=== PATIENT | female | born 1945 | race Caucasian/White ===

== ENCOUNTER 2019-04-09 17:31 | Inpatient (IN) | payer MEDICARE ==
--- NOTE | 2019-04-09 18:05 | ED ---
Altered Mental Status HPI - General Chief Complaint: Altered Mental Status Stated Complaint: altered mental status Time Seen by Provider: 04/09/19 17:34 Source: patient, EMS Mode of arrival: EMS Limitations: no limitations - History of Present Illness Initial Comments: 73-year-old female with history of hypertension and breast cancer presents today for chief complaint of episode of altered mental status. Patient was found by 2 friends earlier at her home and she was confused, she did not know why her dogs (that she owns) were in her own house, she also didnt remember that the friend that had given her the dogs was --and had > 4 months ago. They were concerned by this confused behavior. And presented to their local hospital. Upon presentation the patient's confusion resolved per friends/family. Patient had a CT of the brain which revealed no acute infarct and laboratory studies which revealed elevated troponin. Family which is at bedside states that they were told patient had a urinary tract infection. Patient denies dysuria urgency frequency. Patient denies any known confusion she has chest pain GI shorts breath leg swelling denies history of DVT or pulmonary embolism she denies any back pain fevers cough congestion upper rest or symptoms she denies any known headaches dizziness nausea vomiting visual changes. Patient states that she feels like her normal self and she does not remember being confused earlier. Family as well as friends do not recall patient having any episodes similar to this in the past. Remaining review of system negative. Upon arrival patient appears well alert and oriented 3 no sig ns of confusion. - Related Data Home Medications Medication Instructions Recorded Confirmed Fluticasone Nasal [place] [Flonase 2 spray EA NOSTRIL HS 04/09/19 04/09/19 Nasal [place]] Gemfibrozil [Lopid] 600 mg PO AC-BID 04/09/19 04/09/19 HYDROcodone/APAP 5-325MG [[place] 1 tab PO Q4H PRN 04/09/19 04/09/19 5-325] Loratadine [Claritin] 10 mg PO DAILY 04/09/19 04/09/19 Sertraline [Zoloft] 50 mg PO DAILY 04/09/19 04/09/19 Sulindac [Clinoril] 200 mg PO BID 04/09/19 04/09/19 Triamterene-Hctz 37.5-25Mg 1 cap PO DAILY 04/09/19 04/09/19 [Dyazide 37.5-25 Capsule] traMADol HCL [Ultram] 50 mg PO BID 04/09/19 04/09/19 Allergies Allergy/AdvReac Type Severity Reaction Status Date / Time adhesive tape Allergy Rash/Hives Verified 04/09/19 18:19 cephalexin [From Keflex] Allergy Rash/Hives Verified 04/09/19 18:19 sulfamethoxazole Allergy Rash/Hives Verified 04/09/19 18:19 [From Bactrim] trimethoprim [From Bactrim] Allergy Rash/Hives Verified 04/09/19 18:19 GLADYS MUSTARD Allergy Anaphylaxis Uncoded 04/09/19 18:19 Review of Systems ROS Statement: Those systems with pertinent positive or pertinent negative responses have been documented in the HPI. ROS Other: All systems not noted in ROS Statement are negative. Past Medical History Past Medical History: Cancer, Hypertension Additional Past Medical History / Comment(s): Right breast lump-cancerous History of Any Multi-Drug Resistant Organisms: None Reported Past Surgical History: Breast Surgery, Cholecystectomy, Hysterectomy Past Psychological History: Depression Smoking Status: Never smoker Past Alcohol Use History: Occasional Past Drug Use History: None Reported General Exam - General Exam Comments Initial Comments: General: The patient is awake and alert, in no distress, and does not appear acutely ill. Eye: +3 mm pupils are equal, round and reactive to light, extra-ocular movements are intact. No APD. No nystagmus. There is normal conjunctiva ajit aterally. No signs of icterus. Ears, nose, mouth and throat: There are moist mucous membranes and no oral lesions. No nuchal rigidity. Neck: The neck is supple, there is no tenderness or JVD. Cardiovascular: There is a regular rate and rhythm. No murmur, rub or gallop is appreciated. Respiratory: Lungs are clear to auscultation, respirations are non-labored, breath sounds are equal. No wheezes, stridor, rales, or rhonchi. Gastrointestinal: Soft, non-distended, non-tender abdomen without masses or organomegaly noted. There is no rebound or guarding present. No CVA tenderness. Bowel sounds are unremarkable. Musculoskeletal: Normal ROM, no tenderness. Strength 5/5 of the UE and LE b/l. Sensation intact of the UE and LE b/l. radial and DP pulses equal bilaterally 2+. Neurological: A&O x 3. CN II-XII intact, There are no obvious motor or sensory deficits. Coordination appears grossly intact. Speech is normal. No pronator drift. No finger nausea. No gait ataxia. Smooth and coordinated [id number] finger to nose. Spatially oriented. Skin: Skin is warm and dry and no rashes or lesions are noted. Psychiatric: Cooperative, appropriate mood & affect, normal judgment. Limitations: no limitations Course Vital Signs 04/09/19 17:34 Temperature 98.6 F Pulse Rate 66 Respiratory 16 Rate Blood Pressure 159/84 O2 Sat by Pulse 98 Oximetry Medical Decision Making - Medical Decision Making 73yo female present today for chief complaint of episode of transient confusion x few hours. Patient is now baseline per family who is at bedside. Patient has no focal neurological deficits NIH is 0. Patient has no other complaints. Patient does have noted elevated troponin upon chart review from paperwork obtained from [facility]. Patient states she was not aware of this finding. EKG revealed no ST elevation or depression concerning for acute cardiopulmonary syndrome. We will trend the troponin levels. Patient's chest x-ray was clear CT was initially ordered with the altered mental status order set, i immediately evaluated patient and gave verbal order once I read report that CT was obtained at the other hospital and gave verbal order to nurse to cancel the CT, paitent CT was never cancelled and patient went to CT, second CT revealed no change, no acute intracranial process. No acute ischemia. At this time we'll admit patient for possible TIA, and cardiac evaluation. Family and patient are agreeable to admission. I did speak with the admitting provider Dr. Reeves who was agreeable with admission and care plan, agreeable with neurology and cardiology consultation. patient remained stable throughout ER visit no cognitive changes. Discussed case in detail with attending provider Jenna waddell. - Lab Data Result diagrams: 04/09/19 18:07 04/09/19 18:07 Lab Results 04/09/19 04/09/19 04/09/19 Range/Units 17:53 18:07 18:07 WBC 6.8 (3.8-10.6) k/uL RBC 4.53 (3.80-5.40) m/uL Hgb 13.8 (11.4-16.0) gm/dL Hct 41.0 (34.0-46.0) % MCV 90.5 (80.0-100.0) fL MCH 30.4 (25.0-35.0) pg MCHC 33.6 (31.0-37.0) g/dL RDW 14.8 (11.5-15.5) % Plt Count 338 (150-450) k/uL Neutrophils % 62 % Lymphocytes % 25 % Monocytes % 5 % Eosinophils % 6 % Basophils % 1 % Neutrophils # 4.2 (1.3-7.7) k/uL Lymphocytes # 1.7 (1.0-4.8) k/uL Monocytes # 0.3 (0-1.0) k/uL Eosinophils # 0.4 (0-0.7) k/uL Basophils # 0.0 (0-0.2) k/uL PT (9.0-12.0) sec INR (<1.2) APTT (22.0-30.0) sec Sodium 141 (137-145) mmol/L Potassium 4.0 (3.5-5.1) mmol/L Chloride 106 (98-107) mmol/L Carbon Dioxide 25 (22-30) mmol/L Anion Gap 10 mmol/L BUN 24 H (7-17) mg/dL Creatinine 0.85 (0.52-1.04) mg/dL Est GFR (CKD-EPI)AfAm 79 (>60 ml/min/1.73 sqM) Est GFR (CKD-EPI)NonAf 68 (>60 ml/min/1.73 sqM) Glucose 83 (74-99) mg/dL POC Glucose (mg/dL) (75-99) mg/dL POC Glu Composition Floor Setter ID Plasma Lactic Acid Jeffry 1.0 (0.7-2.0) mmol/L Calcium 10.7 H (8.4-10.2) mg/dL Total Bilirubin 0.7 (0.2-1.3) mg/dL AST 31 (14-36) U/L ALT 22 (9-52) U/L Alkaline Phosphatase 160 H (38-126) U/L Creatine Kinase 123 (30-135) U/L Troponin I (0.000-0.034) ng/mL Total Protein 7.6 (6.3-8.2) g/dL Albumin 4.7 (3.5-5.0) g/dL Urine Color Urine Appearance (Clear) Urine pH (5.0-8.0) Ur Specific [place] (1.001-1.035) Urine Protein (Negative) Urine Glucose (UA) (Negative) Urine Ketones (Negative) Urine Blood (Negative) Urine Nitrite (Negative) Urine Bilirubin (Negative) Urine Urobilinogen (<2.0) mg/dL Ur Leukocyte Esterase (Negative) Urine RBC (0-5) /hpf Urine WBC (0-5) /hpf Ur Squamous Epith Cells (0-4) /hpf Urine Mucus (None) /hpf Urine Opiates Screen (NotDetected) Ur Oxycodone Screen (NotDetected) Urine Methadone Screen (NotDetected) Ur Propoxyphene Screen (NotDetected) Ur Barbiturates Screen (NotDetected) U Tricyclic Antidepress (NotDetected) Ur Phencyclidine Scrn (NotDetected) Ur Amphetamines Screen (NotDetected) U Methamphetamines Scrn (NotDetected) U Benzodiazepines Scrn (NotDetected) Urine Cocaine Screen (NotDetected) U Marijuana (THC) Screen (NotDetected) 04/09/19 04/09/19 04/09/19 Range/Units 18:07 18:07 18:07 WBC (3.8-10.6) k/uL RBC (3.80-5.40) m/uL Hgb (11.4-16.0) gm/dL Hct (34.0-46.0) % MCV (80.0-100.0) fL MCH (25.0-35.0) pg MCHC (31.0-37.0) g/dL RDW (11.5-15.5) % Plt Count (150-450) k/uL Neutrophils % % Lymphocytes % % Monocytes % % Eosinophils % % Basophils % % Neutrophils # (1.3-7.7) k/uL Lymphocytes # (1.0-4.8) k/uL Monocytes # (0-1.0) k/uL Eosinophils # (0-0.7) k/uL Basophils # (0-0.2) k/uL PT 10.2 (9.0-12.0) sec INR 0.9 (<1.2) APTT 23.0 (22.0-30.0) sec Sodium (137-145) mmol/L Potassium (3.5-5.1) mmol/L Chloride (98-107) mmol/L Carbon Dioxide (22-30) mmol/L Anion Gap mmol/L BUN (7-17) mg/dL Creatinine (0.52-1.04) mg/dL Est GFR (CKD-EPI)AfAm (>60 ml/min/1.73 sqM) Est GFR (CKD-EPI)NonAf (>60 ml/min/1.73 sqM) Glucose (74-99) mg/dL POC Glucose (mg/dL) (75-99) mg/dL POC Glu Composition Floor Setter ID Plasma Lactic Acid [place] (0.7-2.0) mmol/L Calcium (8.4-10.2) mg/dL Total Bilirubin (0.2-1.3) mg/dL AST (14-36) U/L ALT (9-52) U/L Alkaline Phosphatase (38-126) U/L Creatine Kinase (30-135) U/L Troponin I 0.070 H* (0.000-0.034) ng/mL Total Protein (6.3-8.2) g/dL Albumin (3.5-5.0) g/dL Urine Color Light Yellow Urine Appearance Clear (Clear) Urine pH 6.0 (5.0-8.0) Ur Specific [place] 1.011 (1.001-1.035) Urine Protein Negative (Negative) Urine Glucose (UA) Negative (Negative) Urine Ketones Negative (Negative) Urine Blood Negative (Negative) Urine Nitrite Negative (Negative) Urine Bilirubin Negative (Negative) Urine Urobilinogen <2.0 (<2.0) mg/dL Ur Leukocyte Esterase Small H (Negative) Urine RBC 2 (0-5) /hpf Urine WBC 4 (0-5) /hpf Ur Squamous Epith Cells <1 (0-4) /hpf Urine Mucus Rare H (None) /hpf Urine Opiates Screen Not Detected (NotDetected) Ur Oxycodone Screen Not Detected (NotDetected) Urine Methadone Screen Not Detected (NotDetected) Ur Propoxyphene Screen Not Detected (NotDetected) Ur Barbiturates Screen Not Detected (NotDetected) U Tricyclic Antidepress Detected H (NotDetected) Ur Phencyclidine Scrn Not Detected (NotDetected) Ur Amphetamines Screen Not Detected (NotDetected) U Methamphetamines Scrn Not Detected (NotDetected) U Benzodiazepines Scrn Not Detected (NotDetected) Urine Cocaine Screen Not Detected (NotDetected) U Marijuana (THC) Screen Not Detected (NotDetected) 04/09/19 Range/Units 18:09 WBC (3.8-10.6) k/uL RBC (3.80-5.40) m/uL Hgb (11.4-16.0) gm/dL Hct (34.0-46.0) % MCV (80.0-100.0) fL MCH (25.0-35.0) pg MCHC (31.0-37.0) g/dL RDW (11.5-15.5) % Plt Count (150-450) k/uL Neutrophils % % Lymphocytes % % Monocytes % % Eosinophils % % Basophils % % Neutrophils # (1.3-7.7) k/uL Lymphocytes # (1.0-4.8) k/uL Monocytes # (0-1.0) k/uL Eosinophils # (0-0.7) k/uL Basophils # (0-0.2) k/uL PT (9.0-12.0) sec INR (<1.2) APTT (22.0-30.0) sec Sodium (137-145) mmol/L Potassium (3.5-5.1) mmol/L Chloride (98-107) mmol/L Carbon Dioxide (22-30) mmol/L Anion Gap mmol/L BUN (7-17) mg/dL Creatinine (0.52-1.04) mg/dL Est GFR (CKD-EPI)AfAm (>60 ml/min/1.73 sqM) Est GFR (CKD-EPI)NonAf (>60 ml/min/1.73 sqM) Glucose (74-99) mg/dL POC Glucose (mg/dL) 81 (75-99) mg/dL POC Glu Composition Floor Setter ID Lisha Grayson Plasma Lactic Acid Jeff[place] (0.7-2.0) mmol/L Calcium (8.4-10.2) mg/dL Total Bilirubin (0.2-1.3) mg/dL AST (14-36) U/L ALT (9-52) U/L Alkaline Phosphatase (38-126) U/L Creatine Kinase (30-135) U/L Troponin I (0.000-0.034) ng/mL Total Protein (6.3-8.2) g/dL Albumin (3.5-5.0) g/dL Urine Color Urine Appearance (Clear) Urine pH (5.0-8.0) Ur Specific [place] (1.001-1.035) Urine Protein (Negative) Urine Glucose (UA) (Negative) Urine Ketones (Negative) Urine Blood (Negative) Urine Nitrite (Negative) Urine Bilirubin (Negative) Urine Urobilinogen (<2.0) mg/dL Ur Leukocyte Esterase (Negative) Urine RBC (0-5) /hpf Urine WBC (0-5) /hpf Ur Squamous Epith Cells (0-4) /hpf Urine Mucus (None) /hpf Urine Opiates Screen (NotDetected) Ur Oxycodone Screen (NotDetected) Urine Methadone Screen (NotDetected) Ur Propoxyphene Screen (NotDetected) Ur Barbiturates Screen (NotDetected) U Tricyclic Antidepress (NotDetected) Ur Phencyclidine Scrn (NotDetected) Ur Amphetamines Screen (NotDetected) U Methamphetamines Scrn (NotDetected) U Benzodiazepines Scrn (NotDetected) Urine Cocaine Screen (NotDetected) U Marijuana (THC) Screen (NotDetected) - EKG Data EKG Comments: Ventricular rate 63 bpm, ID interval 134 ms, QRS duration 96ms, QT/QTc 410/419 m axis noted. There is an incomplete right bundle branch block. No ST elevation or depression nonspecific T-wave. Disposition Clinical Impression: Transient confusion, Elevated troponin Disposition: ADMITTED IP TO THIS [facility] Condition: Stable Is patient prescribed a controlled substance at d/c from ED?: No Referrals: Kamron Lee MD [Primary Care Provider] - 1-2 days Time of Disposition: 19:26 Decision to Admit Reason: Admit from EC Decision Date: 04/09/19 Decision Time: 19:26
[2019-04-09 18:11] LABS: Glucose,Whole Blood 81 mg/dL (75-99)
[2019-04-09 18:29] LABS: Basophils % (A) 1 %; Eosinophils # (A) 0.4 k/uL (0-0.7); Eosinophils % (A) 6 %; HGB 13.8 gm/dL (11.4-16.0); Lymphocytes # (A) 1.7 k/uL (1.0-4.8); Lymphocytes % (A) 25 %; MCH 30.4 pg (25.0-35.0); MCHC 33.6 g/dL (31.0-37.0); MCV 90.5 fL (80.0-100.0); Mean Platelet Volume 7.1; Monocytes # (A) 0.3 k/uL (0-1.0); Monocytes % (A) 5 %; Neutrophils # (A) 4.2 k/uL (1.3-7.7); Neutrophils % (A) 62 %; Platelet Count 338 k/uL (150-450); RBC 4.53 m/uL (3.80-5.40); RDW 14.8 % (11.5-15.5); WBC 6.8 k/uL (3.8-10.6)
[2019-04-09 18:35] LABS: Albumin 4.7 g/dL (3.5-5.0); Calcium 10.7 mg/dL (8.4-10.2); Total Bilirubin 0.7 mg/dL (0.2-1.3); Total Protein 7.6 g/dL (6.3-8.2)
[2019-04-09 18:39] LABS: INR 0.9 (<1.2); Prothrombin Time 10.2 sec (9.0-12.0)
[2019-04-09 18:40] LABS: Appearance,Urine Clear (Clear); Bilirubin,Urine Negative (Negative); Blood,Urine Negative (Negative); Color,Urine Light Yellow; Glucose,Urine (UA) Negative (Negative); Ketones,Urine Negative (Negative); Leukocyte Esterase,Urine Small (Negative); Mucus,Urine Rare /hpf; Nitrite,Urine Negative (Negative); Protein,Urine Negative (Negative); RBC,Urine 2 /hpf (0-5); Specific Gravity,Urine 1.011 (1.001-1.035); Squamous Epithelial Cell,Urine <1 /hpf (0-4); Urobilinogen,Urine <2.0 mg/dL (<2.0); WBC,Urine 4 /hpf (0-5)
[2019-04-09 18:51] LABS: Amphetamine Screen,Urine Not Detected (NotDetected); Barbiturate Screen,Urine Not Detected (NotDetected); Benzodiazepines Screen,Urine Not Detected (NotDetected); Cocaine Screen,Urine Not Detected (NotDetected); Methadone Screen, Urine Not Detected (NotDetected); Opiate Screen,Urine Not Detected (NotDetected); Oxycodone Screen, Urine Not Detected (NotDetected); Phencyclidine Screen,Urine Not Detected (NotDetected); Tricyclic Antidepressant,Urine Detected (NotDetected); Urn Cannabinoid Scrn Not Detected (NotDetected)
--- NOTE | 2019-04-09 18:54 | CT ---
EXAMINATION TYPE: CT brain wo con DATE OF EXAM: 04/09/2019 COMPARISON: None HISTORY: Altered mental status. CT DLP: 1094.4 mGycm Automated exposure control for dose reduction was used. FINDINGS: Ventricles have normal size. There is no mass effect nor midline shift. There is no sign of intracran ial hemorrhage. There is some cerebral cortical atrophy. IMPRESSION: MILD ATROPHY. NO ACUTE INTRACRANIAL ABNORMALITY.
--- NOTE | 2019-04-09 18:55 | XR ---
EXAMINATION TYPE: XR chest 2V DATE OF EXAM: 04/09/2019 COMPARISON: NONE HISTORY: Altered mental status TECHNIQUE: Frontal and lateral views of the chest are obtained. FINDINGS: Heart and mediastinum are normal. Lungs are clear. Diaphragm is normal. Bony thorax appear s intact. IMPRESSION: Normal chest.
[2019-04-09] MEDS ORDERED: NITROGLYCERIN SL TABS 0.4 MG TAB SUBLINGUAL PRN (19:23)
[2019-04-09] MEDS ORDERED: HYDROcodone/APAP 5-325MG 1 EACH TAB PO PRN (20:17)
[2019-04-09] MEDS ORDERED: VANCOMYCIN 1,000 MG in SODIUM CHLORIDE 0.9% 250 ML IVPB ONE (20:19)
[2019-04-09] MEDS ORDERED: VANCOMYCIN IV PER PHARMACY 1 EACH MISC MISCELLANE PRN (20:19)
[2019-04-09] MEDS ORDERED: ALPRAZolam 0.25 MG TAB PO PRN (20:19)
[2019-04-09] MEDS ORDERED: LEVOFLOXACIN 500MG-D5W PMX 500 MG in DEXTROSE/WATER 1 100ML.BAG IVPB SCH (21:00)
--- NOTE | 2019-04-09 21:54 | HP ---
HISTORY AND PHYSICAL DATE OF SERVICE: 04/09/2019. CHIEF COMPLAINTS: Confusion. HISTORY OF PRESENT ILLNESS: This 73-year-old woman with a past medical history of hypertension, history of right breast lump cancerous, history of breast surgery, cholecystectomy, history of depression being followed by Dr. Kamron Lee in the outpatient setting also had skin cancer. Apparently, the patient had laser treatment of skin cancer recently. The patient noted to be confused by the family and the patient was taken to [facility] and the patient transferred to [facility] for further evaluation and treatment. There is no history of fever, rigors or chills. No history of headache, loss of consciousness or seizures. The lesion on the left cheek is red and tender also. PAST MEDICAL HISTORY: History of cancer, hypertension, history of right breast lump, history of cholecystectomy. MEDICATIONS: Home medications are: 1. Ultram 50 mg p.o. b.i.d. 2. Dyazide 37.5 mg 1 p.o. 1 capsule daily. 3. Clinoril 20 mg p.o. b.i.d. 4. Zoloft 50 mg. 5. Claritin 10 mg. 6. [place] 5 mg q.4 p.r.n. 7. Lopid 600 mg p.o. b.i.d. 8. Flonase 2 sprays q.h.s. ALLERGIES: ADHESIVE TAPES and KEFLEX, BACTRIM AND GLADYS MUSTARD. FAMILY HISTORY: No history of heart disease or strokes in the family. SOCIAL HISTORY: No history of smoking. No history of alcohol. REVIEW OF SYSTEMS: ENT mentioned earlier. CARDIOVASCULAR no angina. RESPIRATION: No cough. GI no nausea or vomiting. no dysuria. NERVOUS SYSTEM: As mentioned earlier. ALLERGY/IMMUNOLOGY: No asthma or hayfever. MUSCULOSKELETAL: As mentioned earlier. HEMATOLOGY/ONCOLOGY: No history of anemia. ENDOCRINE: Negative. CONSTITUTIONAL: As mentioned earlier. DERMATOLOGY: Negative. RHEUMATOLOGY negative. PSYCHIATRY as mentioned earlier. PHYSICAL EXAMINATION: GENERAL: The patient is alert and oriented times three. VITAL SIGNS: Pulse is 58. Blood pressure is 140/72, respiration 18, temp 98.6, pulse ox 98% on room air. HEENT: Conjunctivae normal. Oral mucosa moist. NECK is no jugular venous distention. No carotid bruit. No lymph node enlargement. CARDIOVASCULAR SYSTEM: S1, S2 muffled. No S3, no S4. RESPIRATORY: Breath sounds diminished in the bases. No rhonchi. No crackles. ABDOMEN: Soft, nontender. No mass palpable. LEGS: No edema. No swelling. NERVOUS SYSTEM: Higher functions as mentioned earlier. Moves all four limbs. No focal deficits. LYMPHATICS: No lymph nodes palpable in the neck, axillae or groin. SKIN: No ulcer, no rashes, no bleeding. JOINTS: No active deforming arthropathy. Examination of the face: Significant tenderness and pain and swelling of the left cheek was present. ASSESSMENT: 1. Left cheek cellulitis with possible sepsis. 2. Change in mental status acute metabolic encephalopathy possibly secondary to sepsis. 3. Rule out transient ischemic attack. 4. Troponin 0.070, indeterminate. 5. History of skin cancer treatment recently. 6. Hypertension. 7. History of right breast cancer. 8. History of breast surgery. 9. History of cholecystectomy. 10.History of depression. RECOMMENDATIONS AND DISCUSSION: In this 73-year-old woman who presented with multiple medical issues, we will monitor the patient closely, continue the current medications, management and symptomatic treatment. We will initiate broad-spectrum IV antibiotics. Otherwise cultures. We will also obtain neurology and Cardiology consultations. The troponins are found to be 0.070. We will continue to monitor. I would also get Infectious Disease evaluation. Prognosis guarded because of multiple complex medical issues. Further recommendations to follow. A copy of dictation being forwarded to Dr. Kamron Lee who is the primary physician. MMCARLYL / NICKIN: [id number] /
[2019-04-09 22:11] VITALS: BMI 22.2
[2019-04-09] MEDS: HEPARIN SODIUM,PORCINE 5,000 UNIT/ML 1 ML VIAL SQ SCH (22:58)
[2019-04-09] MEDS: ETODOLAC 400 MG TAB PO SCH (22:58)
[2019-04-09] MEDS: FLUTICASONE 50MCG/SPRAY NASAL 16GM EA NOSTRIL SCH (22:59)
[2019-04-10] MEDS: PANTOPRAZOLE 40 MG TABLET PO SCH (05:57)
[2019-04-10 06:21] LABS: Basophils % (A) 1 %; Eosinophils # (A) 0.4 k/uL (0-0.7); Eosinophils % (A) 7 %; HCT 40.2 % (34.0-46.0); HGB 13.2 gm/dL (11.4-16.0); Lymphocytes # (A) 1.6 k/uL (1.0-4.8); Lymphocytes % (A) 29 %; MCH 29.8 pg (25.0-35.0); MCHC 32.7 g/dL (31.0-37.0); Mean Platelet Volume 6.8; Monocytes # (A) 0.3 k/uL (0-1.0); Monocytes % (A) 6 %; Neutrophils # (A) 2.9 k/uL (1.3-7.7); Neutrophils % (A) 54 %; Platelet Count 294 k/uL (150-450); RBC 4.42 m/uL (3.80-5.40); RDW 12.7 % (11.5-15.5); WBC 5.4 k/uL (3.8-10.6)
[2019-04-10 06:32] LABS: Calcium 10.3 mg/dL (8.4-10.2); Potassium 4.1 mmol/L (3.5-5.1)
[2019-04-10] MEDS: SERTRALINE 50 MG TAB PO SCH (09:06)
[2019-04-10] MEDS: HEPARIN SODIUM,PORCINE 5,000 UNIT/ML 1 ML VIAL SQ SCH ×2 (09:06→20:45)
[2019-04-10] MEDS: FENOFIBRATE 160 MG TAB PO SCH (09:06)
[2019-04-10] MEDS: ASPIRIN 325 MG TAB PO SCH (09:06)
[2019-04-10] MEDS: TRIAMTERENE-HCTZ 37.5-25MG 1 EACH CAP PO SCH (09:07)
[2019-04-10] MEDS: ETODOLAC 400 MG TAB PO SCH ×3 (09:07→20:45)
--- NOTE | 2019-04-10 11:25 | P.CRDCN ---
History of Present Illness Consult date: 04/10/19 Requesting physician: Rubén Reeves Reason for Consult (text): Abnormal troponin Chief complaint: Confusion History of present illness: This is a pleasant 73-year-old female with documented history of hypertension, who was brought to the hospital because of confusion and mental status changes. Apparently her sister had showed up at her house, patient was quite confused, she wondered why there were in her house. 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 Patient does not recall this episode nor her transfer to [facility]. But this morning she is alert and oriented 3 and back to her usual self. The patient did have a procedure done to several areas on her face, by the skin doctor, she had areas of precancerous lesions removed, subsequent to that she had quite a bit of drainage from some of these areas, and it appears that she may have an infection there now. The area is quite reddened suggesting possible cellulitis. Cardiology consultation was requested because of abnormal troponins. Blood pressure on arrival 158/80 with a heart rate in the 60s, 98% on room air, she is afebrile. White blood cell count is normal, hemoglobin 13.2, platelet count 294. Sodium 142, potassium 4.1, BUN 22 and creatinine 1.07. Troponin 0.07, 0.05, 0.03. Patient denies at any point in time having any chest discomfort, or difficulty in breathing. She is quite physically active. CAT scan of the brain showed mild atrophy with no acute intracranial abnormality. Chest x-ray normal. EKG shows normal sinus rhythm with no acute changes. Past Medical History Past Medical History: Cancer, Hypertension Additional Past Medical History / Comment(s): Right breast lump-cancerous History of Any Multi-Drug Resistant Organisms: None Reported Past Surgical History: Breast Surgery, Cholecystectomy, Hysterectomy Past Psychological History: Depression Smoking Status: Never smoker Past Alcohol Use History: Occasional Past Drug Use History: None Reported Medications and Allergies Home Medications Medication Instructions Recorded Confirmed Type Fluticasone Nasal [place] [Flonase 2 spray EA NOSTRIL HS 04/09/19 04/09/19 History Nasal [place]] Gemfibrozil [Lopid] 600 mg PO AC-BID 04/09/19 04/09/19 History HYDROcodone/APAP 5-325MG [Jean 1 tab PO Q4H PRN 04/09/19 04/09/19 History 5-325] Loratadine [Claritin] 10 mg PO DAILY 04/09/19 04/09/19 History Sertraline [Zoloft] 50 mg PO DAILY 04/09/19 04/09/19 History Sulindac [Clinoril] 200 mg PO BID 04/09/19 04/09/19 History Triamterene-Hctz 37.5-25Mg 1 cap PO DAILY 04/09/19 04/09/19 History [Dyazide 37.5-25 Capsule] traMADol HCL [Ultram] 50 mg PO BID 04/09/19 04/09/19 History Allergies Allergy/AdvReac Type Severity Reaction Status Date / Time adhesive tape Allergy Rash/Hives Verified 04/09/19 18:19 cephalexin [From Keflex] Allergy Rash/Hives Verified 04/09/19 18:19 sulfamethoxazole Allergy Rash/Hives Verified 04/09/19 18:19 [From Bactrim] trimethoprim [From Bactrim] Allergy Rash/Hives Verified 04/09/19 18:19 [place] Allergy Anaphylaxis Uncoded 04/09/19 18:19 Physical Exam Vitals: Vital Signs Temp Pulse Pulse Resp BP BP Pulse Ox 04/10/19 04:00 96.8 F L 54 L 18 149/69 95 04/09/19 23:51 71 18 144/72 97 04/09/19 21:40 98.7 F 60 18 125/64 98 04/09/19 21:30 98 F 69 18 153/83 96 04/09/19 20:45 56 L 18 132/72 97 04/09/19 19:51 58 L 18 145/72 98 04/09/19 17:34 98.6 F 66 16 159/84 98 Intake and Output 04/09/19 04/10/19 04/10/19 22:59 06:59 14:59 Intake Total 240 Balance 240 Intake: Oral 240 Other: # Voids 1 Weight 57.606 kg 58.4 kg PHYSICAL EXAMINATION: GENERAL: 73-year-old female in no acute distress at the time of my examination HEENT: Head is atraumatic, normocephalic. Pupils equal, round. Sclera anicteric. Conjunctiva are clear. Patient does have areas of ulcerations and redness on her cheek, worse on the left cheek. Mucous membranes of the mouth are moist. Neck is supple. There is no elevated jugular venous pressure.] No carotid bruit bruit is heard. HEART EXAMINATION: Heart S1, S2 normal. No murmur or gallop heard. CHEST EXAMINATION: Lungs are clear to auscultation and precussion. No chest wall tenderness is noted on palpation or with deep breathing. ABDOMEN: Soft, nontender. Bowel sounds are heard. No organomegaly noted. EXTREMITIES: 2+ peripheral pulses with no evidence of peripheral edema and no calf tenderness noted. NEUROLOGIC patient is awake, alert and oriented X3. . Results 04/10/19 05:32 04/10/19 05:32 Cardiac Enzymes 04/09/19 04/09/19 04/10/19 Range/Units 18:07 18:07 00:04 AST 31 (14-36) U/L Troponin I 0.070 H* 0.056 H* (0.000-0.034) ng/mL 04/10/19 Range/Units 05:32 AST (14-36) U/L Troponin I 0.034 (0.000-0.034) ng/mL Coagulation 04/09/19 Range/Units 18:07 PT 10.2 (9.0-12.0) sec APTT 23.0 (22.0-30.0) sec Lipids 04/10/19 Range/Units 05:32 Triglycerides 152 H (<150) mg/dL Cholesterol 187 (<200) mg/dL HDL Cholesterol 50 (40-60) mg/dL CBC 04/09/19 04/10/19 Range/Units 18:07 05:32 WBC 6.8 5.4 (3.8-10.6) k/uL RBC 4.53 4.42 (3.80-5.40) m/uL Hgb 13.8 13.2 (11.4-16.0) gm/dL Hct 41.0 40.2 (34.0-46.0) % Plt Count 338 294 (150-450) k/uL Comprehensive Metabolic Panel 04/09/19 04/10/19 Range/Units 18:07 05:32 Sodium 141 142 (137-145) mmol/L Potassium 4.0 4.1 (3.5-5.1) mmol/L Chloride 106 107 (98-107) mmol/L Carbon Dioxide 25 28 (22-30) mmol/L BUN 24 H 22 H (7-17) mg/dL Creatinine 0.85 1.07 H (0.52-1.04) mg/dL Glucose 83 86 (74-99) mg/dL Calcium 10.7 H 10.3 H (8.4-10.2) mg/dL AST 31 (14-36) U/L ALT 22 (9-52) U/L Alkaline Phosphatase 160 H (38-126) U/L Total Protein 7.6 (6.3-8.2) g/dL Albumin 4.7 (3.5-5.0) g/dL Current Medications Generic Name Dose Route Start Last Admin Trade Name Freq PRN Reason Stop Dose Admin Hydrocodone Bitart/Acetaminophen 1 each 04/09/19 20:17 Jean 5-325 PO Q4H PRN Severe Pain Alprazolam 0.25 mg 04/09/19 20:19 Xanax PO TID PRN Anxiety Aspirin 325 mg 04/10/19 09:00 04/10/19 09:06 Aspirin PO 325 mg DAILY KARLA Administration Etodolac 400 mg 04/09/19 22:00 04/10/19 09:07 Lodine PO 400 mg TID KARLA Administration Fenofibrate 160 mg 04/10/19 09:00 04/10/19 09:06 Lofibra PO 160 mg DAILY KARLA Administration Fluticasone Propionate 2 spray 04/09/19 21:00 04/09/19 22:59 Flonase Nasal [place] EA NOSTRIL 2 spray HS KARLA Administration Heparin Sodium (Porcine) 5,000 unit 04/09/19 21:00 04/10/19 09:06 Heparin SQ 5,000 unit Q12HR KARLA Administration Levofloxacin 500 mg/ IV 100 mls @ 100 mls/hr 04/09/19 21:00 04/09/19 21:36 Solution IVPB 100 mls/hr Q24H KARLA Administration Vancomycin HCl 1,000 mg/ 250 mls @ 125 mls/hr 04/10/19 15:00 Sodium Chloride IVPB Q16H KARLA Nitroglycerin 0.4 mg 04/09/19 19:23 Nitrostat SUBLINGUAL Q5M PRN Chest Pain Pantoprazole Sodium 40 mg 04/10/19 07:30 04/10/19 05:57 Protonix PO 40 mg AC-BRKFST KARLA Administration Sertraline HCl 50 mg 04/10/19 09:00 04/10/19 09:06 Zoloft PO 50 mg DAILY KARLA Administration Triamterene/HCTZ 1 each 04/10/19 09:00 04/10/19 09:07 Dyazide PO 1 each DAILY KARLA Administration Intake and Output 04/09/19 04/10/19 04/10/19 22:59 06:59 14:59 Intake Total 240 Balance 240 Intake: Oral 240 Other: # Voids 1 Weight 57.606 kg 58.4 kg 04/10/19 05:32 04/10/19 05:32 EKG Interpretations (text) EKG shows a normal sinus rhythm with incomplete right bundle branch block pattern. Assessment and Plan Plan: Assessment and plan #1 mental status changes and confusion #2 abnormal troponin, not consistent with acute coronary syndrome with no significant rise and fall pattern. We will obtain an echocardiogram with Doppler study. Patient denies having any chest discomfort. #3 possible cellulitis of the left cheek #4 hypertension #5 history of breast cancer Plan We will obtain an echocardiogram with Doppler study. Once the patient's cellulitis has cleared, as an outpatient, we will recommend stress testing down the road. DNP note has been reviewed, I agree with a documented findings and plan of care. Patient was seen and examined.
--- NOTE | 2019-04-10 11:58 | P.CNNES ---
History of Present Illness Consult date: 04/10/19 Requesting physician: Mary Craft Reason for Consult: Confusion possible TIA Chief complaint: Got confused for a little while History of Present Illness: This is a 73 RH female h/o HTN and breast CA s/p surgery and skin cancer s/p recent surgical treatment. [place] and was at home when family noted her to be confused. There was no report of seizure activity, repetitive behavior suspicious for automatism, tongue biting, bowel/bladder incontinence or loss of consciousness. She also denies any focal neuro c/o such as diplopia, amaurosis, facial numbness or droop, vertigo, dysarthria, dysphagia, aphasia, focal numbness/weakness, tremors or ataxia. No recent head trauma, change in habits or meds. She was evaluated by the primary team who felt she has a cellulitis of her face, possibly sepsis for which she was started on broad spectrum antibiotics. She states she feels much better today. Does not have any current neurological concerns. Review of Systems I have performed a 14-point organ ROS with patient; pertinents are as per HPI. Past Medical History Past Medical History: Cancer, Hypertension Additional Past Medical History / Comment(s): Right breast lump-cancerous History of Any Multi-Drug Resistant Organisms: None Reported Past Surgical History: Breast Surgery, Cholecystectomy, Hysterectomy Past Psychological History: Depression Smoking Status: Never smoker Past Alcohol Use History: Occasional Past Drug Use History: None Reported Medications and Allergies Home Medications Medication Instructions Recorded Confirmed Type Fluticasone Nasal [place] [Flonase 2 spray EA NOSTRIL HS 04/09/19 04/09/19 History Nasal [place]] Gemfibrozil [Lopid] 600 mg PO AC-BID 04/09/19 04/09/19 History HYDROcodone/APAP 5-325MG [[place] 1 tab PO Q4H PRN 04/09/19 04/09/19 History 5-325] Loratadine [Claritin] 10 mg PO DAILY 04/09/19 04/09/19 History Sertraline [Zoloft] 50 mg PO DAILY 04/09/19 04/09/19 History Sulindac [Clinoril] 200 mg PO BID 04/09/19 04/09/19 History Triamterene-Hctz 37.5-25Mg 1 cap PO DAILY 04/09/19 04/09/19 History [Dyazide 37.5-25 Capsule] traMADol HCL [Ultram] 50 mg PO BID 04/09/19 04/09/19 History Allergies Allergy/AdvReac Type Severity Reaction Status Date / Time adhesive tape Allergy Rash/Hives Verified 04/09/19 18:19 cephalexin [From Keflex] Allergy Rash/Hives Verified 04/09/19 18:19 sulfamethoxazole Allergy Rash/Hives Verified 04/09/19 18:19 [From Bactrim] trimethoprim [From Bactrim] Allergy Rash/Hives Verified 04/09/19 18:19 GLADYS MUSTARD Allergy Anaphylaxis Uncoded 04/09/19 18:19 Physical Examination - Vital Signs Vital Signs: Vital Signs Temp Pulse Pulse Resp BP BP Pulse Ox 04/10/19 08:00 18 04/10/19 04:00 96.8 F L 54 L 18 149/69 95 04/09/19 23:51 71 18 144/72 97 04/09/19 21:40 98.7 F 60 18 125/64 98 04/09/19 21:30 98 F 69 18 153/83 96 04/09/19 20:45 56 L 18 132/72 97 04/09/19 19:51 58 L 18 145/72 98 04/09/19 17:34 98.6 F 66 16 159/84 98 Intake and Output 04/09/19 04/10/19 04/10/19 22:59 06:59 14:59 Intake Total 240 Balance 240 Intake: Oral 240 Other: # Voids 1 Weight 57.606 kg 58.4 kg Gen NAD Pleasant and cooperative HEENT NCAT Sclera without icterus O/P clear Neck Supple No carotid bruit Cor RRR no m/r/g Lungs CTAB Abd Soft NTND +BS Ext Warm to touch No edema Skin Multiple sites on face s/p skin cancer treatment with erythema Neuro MS A+Ox4 Normal fluency Able to follow all commands CN PERRL VFF no APD EOMI no nystagmus or DOMI No facial asymmetry [place]'s symmetric Hearing intact to normal voice bilaterally Speech not dysarthric Equal elevation of palate Tongue midline Sym shrug and SCM bilaterally Motor Normal bulk/tone No pronator or leg drift No tremors Strength 5/5 sym throughout Sens Intact to LT x4 No neglect Coord No dysmetria on FTN bilaterally DTRs 2+/4 sym throughout Toes downgoing bilaterally No clonus at achilles Gait Deferred Results - Laboratory Findings CBC and BMP: 04/10/19 05:32 04/10/19 05:32 Abnormal Lab Findings: Abnormal Labs 04/09/19 04/09/19 04/09/19 18:07 18:07 18:07 BUN 24 H Creatinine Calcium 10.7 H Alkaline Phosphatase 160 H Troponin I 0.070 H* Triglycerides LDL Cholesterol, Calc Ur Leukocyte Esterase Small H Urine Mucus Rare H U Tricyclic Antidepress Detected H 04/10/19 04/10/19 00:04 05:32 BUN 22 H Creatinine 1.07 H Calcium 10.3 H Alkaline Phosphatase Troponin I 0.056 H* Triglycerides 152 H LDL Cholesterol, Calc 107 H Ur Leukocyte Esterase Urine Mucus U Tricyclic Antidepress - Diagnostic Findings Additional findings: CT Head wo cont 04/09/19. Mild global atrophy. No ICH. Nil acute. I have reviewed neuroimages myself. Assessment and Plan Assessment: Transient altered mental status, much improved. Suspect metabolic encephalopathy due to infection/cellulitis/possible sepsis. Do not suspect an acute primary neurological process. Plan: -CT Head results reviewed with patient -Medical management per primary team and ID -Do not recommend further neurological testing. Will revisit patient prn. Please call with new ?. Thank you for this consultation. Time with Patient: Greater than 30 (I'm spent in direct patient care, greater than 50% of which was spent in [id number] counseling and coordination of care: 70 minutes)
--- NOTE | 2019-04-10 12:49 | ECHOF ---
Referral Reason:abn trop MEASUREMENTS -------- HEIGHT: 160.0 cm WEIGHT: 58.1 kg BP: 149/69 RVIDd: 1.8 cm (< 3.3) IVSd: 1.0 cm (0.6 - 1.1) LVIDd: 4.5 cm (3.9 - 5.3) LVPWd: 0.9 cm (0.6 - 1.1) IVSs: 1.4 cm LVIDs: 2.9 cm LVPWs: 1.6 cm LAESV Index (A-L): 20.22 ml/m Ao Diam: 2.4 cm (2.0 - 3.7) AV Cusp: 1.5 cm (1.5 - 2.6) LA Diam: 2.5 cm (2.7 - 3.8) MV EXCURSION: 17.614 mm (> 18.000) MV EF SLOPE: 90 mm/s (70 - 150) EPSS: 0.5 cm MV E Xavi: 0.64 m/s MV DecT: 337 ms MV A Xavi: 0.68 m/s MV E/A Ratio: 0.94 RAP: 5.00 mmHg RVSP: 26.18 mmHg FINDINGS -------- Sinus rhythm with extra systolic beats. This was a technically good study. The left ventricular size is normal. Left ventricular wall thickness is normal. Overall left vent ricular systolic function is normal with, an EF between 55 - 60 %. The diastolic filling pattern is normal for the age of the patient 10.35. The right ventricle is normal in size. Normal LA size by volume 22+/-6 ml/m2. The right atrial size is normal. Interatrial and interventricular septum intact. The aortic valve is trileaflet, and appears structurally normal. No aortic stenosis or regurgitation. The mitral valve is normal. Mild mitral regurgitation is present. The tricuspid valve appears structurally normal. Mild tricuspid regurgitation present. Right vent ricular systolic pressure is normal at < 35 mmHg. There is no pulmonic regurgitation present. The aortic root size is normal. Normal inferior vena cava with normal inspiratory collapse consistent with estimated right atrial pre ssure of 5 mmHg. All pulmonary veins appear normal. The flow patterns, measured by Doppler, appear normal. There is no pericardial effusion. CONCLUSIONS -------- 1. Sinus rhythm with extra systolic beats. 2. This was a technically good study. 3. The left ventricular size is normal. 4. Left ventricular wall thickness is normal. 5. Overall left ventricular systolic function is normal with, an EF between 55 - 60 %. 6. The diastolic filling pattern is normal for the age of the patient 10.35 7. Normal LA size by volume 22+/-6 ml/m2. 8. The aortic valve is trileaflet, and appears structurally normal. No aortic stenosis or regurgitati on. 9. The mitral valve is normal. 10. Mild mitral regurgitation is present. 11. The tricuspid valve appears structurally normal. 12. Mild tricuspid regurgitation present. 13. Right ventricular systolic pressure is normal at < 35 mmHg. 14. There is no pulmonic regurgitation present. 15. The aortic root size is normal. 16. Normal inferior vena cava with normal inspiratory collapse consistent with estimated right atrial pressure of 5 mmHg. 17. All pulmonary veins appear normal. 18. The flow patterns, measured by Doppler, appear normal. 19. There is no pericardial effusion. OPERATOR HELPER: Christina Alonso RDCS
--- NOTE | 2019-04-10 15:49 | PN ---
PROGRESS NOTE DATE OF SERVICE: 04/10/2019 This 73-year-old woman who was admitted with change in mental status is being evaluated to rule out the possibility of TIA or sepsis. Multiple consultants are following the patient closely. Cardiology has seen the patient and 2D echo showed ejection fraction about 55% to 60%. Neurology has also seen the patient. Patient is being closely monitored. Patient has cellulitis of the face and is on empiric antibiotics, also. The patient has a history of recent laser treatment for skin cancer. Please also note that the patient's troponins are 0.070 and 0.056 without any cardiac symptoms at this time. Neurology has seen the patient and recommended continued medical management. No chest pain. No palpitations. No fever. Past medical history reviewed. REVIEW OF SYSTEMS: HEENT: As mentioned earlier. CARDIOVASCULAR SYSTEM: No angina, palpitations. RESPIRATORY SYSTEM: No cough, hemoptysis. GI: As mentioned earlier. : No dysuria or retention. NERVOUS SYSTEM: As mentioned earlier. CURRENT MEDICATIONS: Reviewed. They include: 1. [place] 5 mg q.4 p.r.n. 2. Xanax 0.25 t.i.d. 3. Aspirin 325 mg p.o. daily. 4. Lodine 400 mg t.i.d. 5. Lofibra 160 mg p.o. daily. 6. Flonase 2 sprays at bedtime. 7. Heparin 5000 units subcutaneously b.i.d. 8. Levaquin 500 mg at bedtime. 9. Nitrostat 0.4 sublingually p.r.n. 10.Protonix 40 mg with breakfast. 11.Zoloft 50 mg p.o. daily. 12.Dyazide 1 daily. 13.Vancomycin 1 gram IV q.16 hours. PHYSICAL EXAMINATION: Patient is alert, oriented x3. Pulse 67, blood pressure 133/80, respiration 16, temperature normal, pulse ox 94% on room air. HEENT: Conjunctivae normal. NECK: No jugular venous distention. CARDIOVASCULAR SYSTEM: S1, S2 muffled. RESPIRATORY SYSTEM: Breath sounds diminished at the bases. Scattered rhonchi and crackles. ABDOMEN: Soft, non-tender. No mass palpable. LEGS: No edema. No swelling. NERVOUS SYSTEM: Higher functions as mentioned earlier. Moves all 4 limbs. No focal motor or sensory deficit. LYMPHATICS: No lymph node palpable in neck, axillae or groin. SKIN: Rash on the face present. EXAMINATION OF FACE: Significant rash and pain and swelling of the left cheek present. Erythema also present. LABS: WBC 5.4, hemoglobin 13.2. Creatinine is 1.07. Other labs are noted. ASSESSMENT: 1. Left cheek cellulitis with possible sepsis, present on admission. 2. Change in mental status, metabolic encephalopathy, acute, possibly secondary to sepsis. 3. Transient ischemic attack unlikely per Neurology. 4. Troponin 0.070, indeterminate. 5. History of skin cancer treatment recently. 6. Hypertension. 7. History of right breast cancer. 8. History of right breast surgery. 9. History of cholecystectomy. 10.History of depression. RECOMMENDATIONS AND DISCUSSION: In this 73-year-old woman who presented with multiple complex medical issues, we will monitor the patient closely, continue the current management, continue with symptomatic treatment. Continue with IV antibiotics. Patient is on a combination of Levaquin and vancomycin. Otherwise, I would recommend closely following with Infectious Disease, Neurology and Cardiology. Two-D echo reviewed. Prognosis guarded because of multiple complex medical issues. Further recommendations to follow. MMODL / IJN: [id number] /
[2019-04-10] MEDS: VANCOMYCIN 1,000 MG in SODIUM CHLORIDE 0.9% 250 ML IVPB SCH (17:27)
[2019-04-10] MEDS: FLUTICASONE 50MCG/SPRAY NASAL 16GM EA NOSTRIL SCH (20:45)
[2019-04-10] MEDS ORDERED: LEVOFLOXACIN 500 MG TAB PO SCH (21:00)
--- NOTE | 2019-04-11 00:15 | P.CONS ---
History of Present Illness - Reason for Consult Consult date: 04/10/19 Sepsis and left facial cellulitis Requesting physician: Rubén Reeves - Chief Complaint Confusion and mental status changes 1 day - History of Present Illness Patient is a 73-year-old female has been brought into the ER by the family/friends with concern for confusion that apparently started and the patient was brought into the hospital with no history of any headache or high- grade fever, patient apparently recently did have laser surgery for a skin cancer on the her left cheek, patient mentioning more swelling redness to the left cheek area and she did have some burning pain about 5-6 out of 10 and no radiation the patient also mentions some clear to yellow drainage from the area this patient presented to hospital was afebrile and didn't have an elevated white count the patient has the culture drawn has been started on vancomycin for the left facial cellulitis patient did have a UA which was negative urine test was positive for antidepressant and chest x-ray was negative for any pneumonia she did have mildly elevated troponin patient is currently being worked up both by cardiology and neurology services infectious disease was consulted for moizt her recommendation for antibiotic therapy for her left facial cellulitis in this patient who did have multiple antibiotic ALLERGIES Review of Systems Positive points has been mentioned in HPI rest of the systems are negative Past Medical History Past Medical History: Cancer, Hypertension Additional Past Medical History / Comment(s): Right breast lump-cancerous History of Any Multi-Drug Resistant Organisms: None Reported Past Surgical History: Breast Surgery, Cholecystectomy, Hysterectomy Past Psychological History: Depression Smoking Status: Never smoker Past Alcohol Use History: Occasional Past Drug Use History: None Reported Medications and Allergies Home Medications Medication Instructions Recorded Confirmed Type Fluticasone Nasal [place] [Flonase 2 spray EA NOSTRIL HS 04/09/19 04/09/19 History Nasal [place]] Gemfibrozil [Lopid] 600 mg PO AC-BID 04/09/19 04/09/19 History HYDROcodone/APAP 5-325MG [[place] 1 tab PO Q4H PRN 04/09/19 04/09/19 History 5-325] Loratadine [Claritin] 10 mg PO DAILY 04/09/19 04/09/19 History Sertraline [Zoloft] 50 mg PO DAILY 04/09/19 04/09/19 History Sulindac [Clinoril] 200 mg PO BID 04/09/19 04/09/19 History Triamterene-Hctz 37.5-25Mg 1 cap PO DAILY 04/09/19 04/09/19 History [Dyazide 37.5-25 Capsule] traMADol HCL [Ultram] 50 mg PO BID 04/09/19 04/09/19 History Allergies Allergy/AdvReac Type Severity Reaction Status Date / Time adhesive tape Allergy Rash/Hives Verified 04/09/19 18:19 cephalexin [From Keflex] Allergy Rash/Hives Verified 04/09/19 18:19 sulfamethoxazole Allergy Rash/Hives Verified 04/09/19 18:19 [From Bactrim] trimethoprim [From Bactrim] Allergy Rash/Hives Verified 04/09/19 18:19 GL[place]ARD Allergy Anaphylaxis Uncoded 04/09/19 18:19 Physical Exam Vitals: Vital Signs Temp Pulse Pulse Resp BP BP Pulse Ox 04/10/19 12:00 67 16 132/80 95 04/10/19 08:00 67 16 117/62 95 04/10/19 04:00 96.8 F L 54 L 18 149/69 95 04/09/19 23:51 71 18 144/72 97 04/09/19 21:40 98.7 F 60 18 125/64 98 04/09/19 21:30 98 F 69 18 153/83 96 04/09/19 20:45 56 L 18 132/72 97 04/09/19 19:51 58 L 18 145/72 98 04/09/19 17:34 98.6 F 66 16 159/84 98 Intake and Output 04/10/19 04/10/19 04/10/19 06:59 14:59 22:59 Intake Total 600 Balance 600 Intake: Oral 600 Other: # Voids 1 Weight 58.4 kg GENERAL DESCRIPTION: Elderly female lying in bed, no distress. No tachypnea or accessory muscle of respiration use. HEENT: Shows Pallor , no scleral icterus. Oral mucous membrane is dry. No pharyngeal erythema or thrush Left facial area with some swelling and minimal redness no fluctuation induration or any drainage NECK: Trachea central, no thyromegaly. LUNGS: Unlabored breathing. Clear to auscultation anteriorly. No wheeze or crackle. HEART: S1, S2, regular rate and rhythm. No loud murmur ABDOMEN: Soft, no tenderness , guarding or rigidity, no organomegaly EXTREMITIES: No edema of feet. SKIN: No rash, no masses palpable. NEUROLOGICAL: The patient is awake, alert, oriented x3, mood and affect normal. Results CBC & Chem 7: 04/10/19 05:32 04/10/19 05:32 Labs: Abnormal Lab Results - Last 24 Hours (Table) 04/09/19 04/09/19 04/09/19 Range/Units 18:07 18:07 18:07 BUN 24 H (7-17) mg/dL Creatinine (0.52-1.04) mg/dL Calcium 10.7 H (8.4-10.2) mg/dL Alkaline Phosphatase 160 H (38-126) U/L Troponin I 0.070 H* (0.000-0.034) ng/mL Triglycerides (<150) mg/dL LDL Cholesterol, Calc (0-99) mg/dL Ur Leukocyte Esterase Small H (Negative) Urine Mucus Rare H (None) /hpf U Tricyclic Antidepress Detected H (NotDetected) 04/10/19 04/10/19 Range/Units 00:04 05:32 BUN 22 H (7-17) mg/dL Creatinine 1.07 H (0.52-1.04) mg/dL Calcium 10.3 H (8.4-10.2) mg/dL Alkaline Phosphatase (38-126) U/L Troponin I 0.056 H* (0.000-0.034) ng/mL Triglycerides 152 H (<150) mg/dL LDL Cholesterol, Calc 107 H (0-99) mg/dL Ur Leukocyte Esterase (Negative) Urine Mucus (None) /hpf U Tricyclic Antidepress (NotDetected) Microbiology - Last 24 Hours (Table) 04/09/19 18:07 Urine Culture - Preliminary Urine,Voided Assessment and Plan Assessment: 1-patient presented to hospital with confusion which is likely multifactorial in this patient who did have a component of left facial cellulitis in this patient with recent laser treatment for left cheek skin cancer will need to call for the gram-positive skin remy to the likely pathogen associated with the cellulitis 2-Patient with multiple antibiotics ALLERGIES that will limit the number of antibiotic safe to use (1) Facial cellulitis Current Visit: Yes Status: Acute Code(s): L03.211 - CELLULITIS OF FACE SNOMED Code(s): 313695198 (2) Allergy to multiple antibiotics Current Visit: Yes Status: Acute Code(s): Z88.1 - ALLERGY STATUS TO OTHER ANTIBIOTIC AGENTS STATUS SNOMED Code(s): 926994185740969 Plan: 1--vancomycin pharmacy to dose target trough of 15 while watching her kidney function and Vanco trough closely 2-after initial stabilization The patient will be able to finish therapy with oral antibiotics we will follow on clinical condition and culture to further adjust medication if needed Thank you for this consultation will follow this patient along with you Time with Patient: Greater than 30
[2019-04-11] MEDS: PANTOPRAZOLE 40 MG TABLET PO SCH (06:23)
[2019-04-11] MEDS: VANCOMYCIN 1,000 MG in SODIUM CHLORIDE 0.9% 250 ML IVPB SCH ×2 (06:24→23:32)
[2019-04-11 07:25] LABS: Basophils % (A) 1 %; Calcium 10.8 mg/dL (8.4-10.2); Eosinophils # (A) 0.5 k/uL (0-0.7); Eosinophils % (A) 7 %; HCT 42.3 % (34.0-46.0); HGB 13.8 gm/dL (11.4-16.0); Lymphocytes # (A) 1.6 k/uL (1.0-4.8); Lymphocytes % (A) 25 %; MCH 29.7 pg (25.0-35.0); MCHC 32.7 g/dL (31.0-37.0); MCV 90.9 fL (80.0-100.0); Mean Platelet Volume 6.7; Monocytes # (A) 0.3 k/uL (0-1.0); Monocytes % (A) 5 %; Neutrophils # (A) 3.6 k/uL (1.3-7.7); Neutrophils % (A) 59 %; Platelet Count 316 k/uL (150-450); RBC 4.65 m/uL (3.80-5.40); RDW 12.8 % (11.5-15.5); WBC 6.2 k/uL (3.8-10.6)
[2019-04-11] MEDS: ASPIRIN 325 MG TAB PO SCH (08:46)
[2019-04-11] MEDS: HEPARIN SODIUM,PORCINE 5,000 UNIT/ML 1 ML VIAL SQ SCH ×2 (08:46→20:03)
[2019-04-11] MEDS: ETODOLAC 400 MG TAB PO SCH ×3 (08:46→20:03)
[2019-04-11] MEDS: FENOFIBRATE 160 MG TAB PO SCH (08:46)
[2019-04-11] MEDS: SERTRALINE 50 MG TAB PO SCH (08:46)
[2019-04-11] MEDS: TRIAMTERENE-HCTZ 37.5-25MG 1 EACH CAP PO SCH (08:47)
[2019-04-11 08:52] VITALS: RESP 16
--- NOTE | 2019-04-11 14:46 | P.PN ---
Subjective Progress Note Date: 04/11/19 This is a pleasant 73-year-old female with documented history of hypertension, who was brought to the hospital because of confusion and mental status changes. Apparently her sister had showed up at her house, patient was quite confused, she wondered why there were in her house. 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 Patient does not recall this episode nor her transfer to the hospital. But this morning she is alert and oriented 3 and back to her usual self. The patient did have a procedure done to several areas on her face, by the skin doctor, she had areas of precancerous lesions removed, subsequent to that she had quite a bit of drainage from some of these areas, and it appears that she may have an infection there now. The area is quite reddened suggesting possible cellulitis. Cardiology consultation was requested because of abnormal troponins. Blood pressure on arrival 158/80 with a heart rate in the 60s, 98% on room air, she is afebrile. White blood cell count is normal, hemoglobin 13.2, platelet count 294. Sodium 142, potassium 4.1, BUN 22 and creatinine 1.07. Troponin 0.07, 0.05, 0.03. Patient denies at any point in time having any chest discomfort, or difficulty in breathing. She is quite physically active. CAT scan of the brain showed mild atrophy with no acute intracranial abnormality. Chest x-ray normal. EKG shows normal sinus rhythm with no acute changes. 04/11/2019 Patient seen and examined this morning, alert and oriented 3. Blood pressure 120/70 with a heart rate in the 60s, 96% on room air. Echocardiogram with Doppler study revealed a normal left ventricular systolic function. Blood pressure 120/70 with a heart rate of 60, 96% on room air. White blood cell count 6.2, hemoglobin 13.8, platelet count 316. Sodium 143, potassium 4.0, BUN 22 and creatinine 0.9. Objective - Vital Signs Vital signs: Vital Signs Temp 98.2 F 04/11/19 08:00 Pulse 59 L 04/11/19 12:00 Resp 16 04/11/19 12:00 BP 121/71 04/11/19 12:00 Pulse Ox 96 04/11/19 12:00 Intake & Output 04/10/19 04/11/19 04/11/19 18:59 06:59 18:59 Intake Total 960 610 Output Total 600 Balance 360 610 Weight 57.6 kg Intake: Intake, IV Titration 250 Amount Vancomycin 1,000 mg In 250 Sodium Chloride 0.9% 250 ml @ 125 mls/hr IVPB Q16H [facility] Rx#:[id number] Oral 960 360 Output: Urine 600 Other: # Voids 1 - Exam PHYSICAL EXAMINATION: GENERAL: 73-year-old female in no acute distress at the time of my examination HEENT: Head is atraumatic, normocephalic. Pupils equal, round. Sclera anicteric. Conjunctiva are clear. Patient does have areas of ulcerations and redness on her cheek, worse on the left cheek. Mucous membranes of the mouth are moist. Neck is supple. There is no elevated jugular venous pressure.] No carotid bruit bruit is heard. HEART EXAMINATION: Heart S1, S2 normal. No murmur or gallop heard. CHEST EXAMINATION: Lungs are clear to auscultation and precussion. No chest wall tenderness is noted on palpation or with deep breathing. ABDOMEN: Soft, nontender. Bowel sounds are heard. No organomegaly noted. EXTREMITIES: 2+ peripheral pulses with no evidence of peripheral edema and no calf tenderness noted. NEUROLOGIC patient is awake, alert and oriented X3. - Labs CBC & Chem 7: 04/11/19 06:25 04/11/19 06:25 Labs: Abnormal Lab Results - Last 24 Hours (Table) 04/11/19 Range/Units 06:25 BUN 22 H (7-17) mg/dL Glucose 108 H (74-99) mg/dL Calcium 10.8 H (8.4-10.2) mg/dL Microbiology - Last 24 Hours (Table) 04/09/19 18:07 Urine Culture - Final Urine,Voided 04/09/19 19:50 Blood Culture - Preliminary Blood No Growth after 24 hours Assessment and Plan Plan: Assessment and plan #1 mental status changes and confusion #2 abnormal troponin, not consistent with acute coronary syndrome with no significant rise and fall pattern. Echo with Doppler study reveals a normal left ventricular systolic function. Patient denies having any chest discomfort. #3 possible cellulitis of the left cheek #4 hypertension #5 history of breast cancer Plan From cardiology's perspective, patient may be able to be discharged home. We would recommend a follow-up appointment in the office and stress test as an outpatient. DNP note has been reviewed, I agree with a documented findings and plan of care. Patient was seen and examined.
--- NOTE | 2019-04-11 15:54 | P.PN ---
Subjective Progress Note Date: 04/11/19 Principal diagnosis: This is a 70-year-old female who was recently undergoing laser treatment of skin cancer on her face and was found to be confused by the family and patient was o riginally brought to [facility] and then transferred here for evaluation and treatment and is being closely monitored at this time. Patient is currently sitting up in the bed in no acute distress with family at the bedside. Facial swelling and redness has minimized with slight improvement but is refining still operator to touch. Patient is alert and oriented 3 acting appropriately and responding to questions and commands appropriately. Patient would like to go home today. Patient denies any chest pain, shortness of breath, or palpitations at this time. Patient is afebrile. Patient denies any nausea or vomiting and has been tolerating diet. Objective - Vital Signs Vital signs: Vital Signs Temp 98.2 F 04/11/19 08:00 Pulse 59 L 04/11/19 12:00 Resp 16 04/11/19 14:23 BP 121/71 04/11/19 12:00 Pulse Ox 96 04/11/19 12:00 Intake & Output 04/10/19 04/11/19 04/11/19 18:59 06:59 18:59 Intake Total 960 610 Output Total 600 Balance 360 610 Weight 57.6 kg Intake: Intake, IV Titration 250 Amount Vancomycin 1,000 mg In 250 Sodium Chloride 0.9% 250 ml @ 125 mls/hr IVPB Q16H [facility] Rx#:[id number] Oral 960 360 Output: Urine 600 Other: # Voids 1 - Exam Gen: This is a 73 year old female sitting up in bed in no acute distress. Vital signs are stable. Blood pressure is 121/71, pulse is 59, respirations are 16, oxygen saturation is 96% on room air, temp is 98.2F. HEENT: Head is atraumatic, normocephalic. Pupils equal, round. Sclerae is anicteric. NECK: Supple. No JVD. No lymphadenopathy. No thyromegaly. LUNGS: Diminished breath sounds at the bases otherwise clear to auscultation. No wheezes or rhonchi noted. No intercostal retractions. HEART: S1-S2 are muffled. No murmur. ABDOMEN: Soft. Bowel sounds are present. No masses. No tenderness. EXTREMITIES: No pedal edema. No calf tenderness. NEUROLOGICAL: Patient is awake, alert and oriented x3. Cranial nerves 2 through 12 are grossly intact. SKIN: Redness to bilateral cheeks of the face noted as well as some scabbing noted where the laser treatment was done. Left more so than the right. Swelling has gone down. - Labs CBC & Chem 7: 04/11/19 06:25 04/11/19 06:25 Labs: Abnormal Lab Results - Last 24 Hours (Table) 04/11/19 Range/Units 06:25 BUN 22 H (7-17) mg/dL Glucose 108 H (74-99) mg/dL Calcium 10.8 H (8.4-10.2) mg/dL Microbiology - Last 24 Hours (Table) 04/09/19 18:07 Urine Culture - Final Urine,Voided 04/09/19 19:50 Blood Culture - Preliminary Blood No Growth after 24 hours Assessment and Plan Assessment: Left cheek cellulitis with possible sepsis Change in mental status, acute metabolic encephalopathy possibly secondary to sepsis Rule out transient ischemic attack Troponin 0.070, indeterminate history of skin cancer, treatment recently Hypertension history of right breast cancer History of cholecystectomy History of depression Recommendations and discussion: Recommend continue current medications, management, and symptomatic treatment. Patient will continue on IV antibiotics per infectious disease recommendations and will likely transition to oral antibiotics on discharge. Awaiting culture r esults at this time. Blood cultures are negative thus far. Due to multiple complex medical issues prognosis is guarded. Further recommendations to follow. Possible discharge in 24-48 hours.
[2019-04-11] MEDS: FLUTICASONE 50MCG/SPRAY NASAL 16GM EA NOSTRIL SCH (20:03)
[2019-04-11] MEDS ORDERED: LEVOFLOXACIN 250 MG TAB PO SCH (21:00)
--- NOTE | 2019-04-11 23:53 | PN ---
PROGRESS NOTE DATE OF SERVICE: 04/11/2019 REASON FOR FOLLOWUP: Left facial cellulitis. INTERVAL HISTORY: The patient is currently afebrile. The patient has been breathing comfortably. The patient's left facial pain and swelling and redness have improved. Currently with no open wound or any drainage. PHYSICAL EXAMINATION: Blood pressure is 131/79 with a pulse of 61, temperature 98.8. She is 94% on room air. General description is an elderly female up in the bed in no distress. HEENT EXAMINATION: Left facial swelling and redness have decreased. LUNGS: Unlabored breathing. Clear to auscultation anteriorly. HEART: S1, S2. Regular rate and rhythm. ABDOMEN: Soft. No tenderness. EXTREMITIES: No edema of the feet. LABS: Hemoglobin is 13.8, white count 6.2 with a BUN of 22, creatinine 0.94. Blood culture has been negative. DIAGNOSTIC IMPRESSION AND PLAN: Patient with left facial cellulitis in this patient who recently had surgery for her skin cancer by Dermatology, likely secondary to gram-positive skin remy. The patient clinically responded to vancomycin; however, she did have KEFLEX and BACTRIM ALLERGIES, limiting outpatient oral antibiotic choices. Continue with IV vancomycin for another 24 hours. Hopefully finish therapy with oral doxycycline 100 mg twice a day for another 7 to 10 days and close outpatient followup. Plan of care was discussed with the admitting physician. RACHEL / ARLEEN: [id number] /
[2019-04-12 03:26] VITALS: TEMP 97.8
[2019-04-12 06:18] LABS: Basophils % (A) 1 %; Eosinophils # (A) 0.5 k/uL (0-0.7); Eosinophils % (A) 8 %; HCT 41.6 % (34.0-46.0); HGB 13.9 gm/dL (11.4-16.0); Lymphocytes # (A) 1.9 k/uL (1.0-4.8); Lymphocytes % (A) 29 %; MCH 30.4 pg (25.0-35.0); MCHC 33.4 g/dL (31.0-37.0); MCV 91.1 fL (80.0-100.0); Mean Platelet Volume 6.7; Monocytes # (A) 0.4 k/uL (0-1.0); Monocytes % (A) 6 %; Neutrophils # (A) 3.5 k/uL (1.3-7.7); Neutrophils % (A) 53 %; Platelet Count 289 k/uL (150-450); RBC 4.57 m/uL (3.80-5.40); RDW 12.8 % (11.5-15.5); WBC 6.6 k/uL (3.8-10.6)
[2019-04-12] MEDS: PANTOPRAZOLE 40 MG TABLET PO SCH (06:24)
[2019-04-12 06:30] LABS: Calcium 10.7 mg/dL (8.4-10.2); Potassium 4.3 mmol/L (3.5-5.1)
[2019-04-12] MEDS: HEPARIN SODIUM,PORCINE 5,000 UNIT/ML 1 ML VIAL SQ SCH (09:02)
[2019-04-12] MEDS: ASPIRIN 325 MG TAB PO SCH (09:03)
[2019-04-12] MEDS: SERTRALINE 50 MG TAB PO SCH (09:03)
[2019-04-12] MEDS: ETODOLAC 400 MG TAB PO SCH (09:03)
[2019-04-12] MEDS: FENOFIBRATE 160 MG TAB PO SCH (09:03)
[2019-04-12] MEDS: TRIAMTERENE-HCTZ 37.5-25MG 1 EACH CAP PO SCH (09:04)
[2019-04-12 11:50] VITALS: BP 127/72; PULSE 76
--- NOTE | 2019-04-12 12:44 | P.DS ---
Providers Date of admission: 04/11/19 14:14 Expected date of discharge: 04/12/19 Attending physician: Rubén Reeves Consults: 04/09/19 19:23 Consult Physician Routine Consulting Provider: Farooq Gooden Consult Reason/Comments: elevated troponin Do you want consulting provider notified?: Yes, Notify in am 04/09/19 19:25 Consult Physician Routine Consulting Provider: Maricruz Rios Consult Reason/Comments: sent for poss TIA, confusion earlier today Do you want consulting provider notified?: Yes, Notify in am 04/09/19 20:18 Consult Physician Routine Consulting Provider: Omar Castro Consult Reason/Comments: sepsis? Do you want consulting provider notified?: Yes Primary care physician: Kamron Lee Hospital Course: Final diagnosis Left cheek cellulitis with possible sepsis, present on admission Change in mental status, acute metabolic encephalopathy, possibly secondary to sepsis Rule out transient ischemic attack Troponin 0.070, indeterminate History of skin cancer Hypertension line history of right breast cancer History of cholecystectomy next line history of depression Discharge disposition Patient is being discharged in a stable condition with guarded prognosis to home and will follow-up with her sweet dough mixer as well as infectious disease in 1-2 weeks in the outpatient setting. Patient will complete a full course of oral antibiotics in the form of doxycycline 100 mg twice daily for 7 days. Total time taken is 35 minutes. History of present illness This is a 73-year-old female who was recently admitted for change in mental status and possible left cheek cellulitis with possible sepsis and was being closely monitored. Patient recently underwent laser treatment of skin cancer on her face and had an increase in redness and swelling and pain around the area and patient was found to be quite confused at home by family and was brought in. Neurology was following the patient and cleared the patient from their standpoint and may follow-up in the outpatient setting as needed. Infectious disease was consulted for possible wound care and IV antibiotic therapy. Patient has multiple ALLERGIES to antibiotics and patient was started on IV Vanc o and will complete a course of oral doxycycline upon discharge. Patient will follow-up with her sweet dough mixer as well as infectious disease in 1-2 weeks as outpatient. Today patient is sitting up in bed in no acute distress gait is steady as she just got back from the bathroom. Patient is alert and oriented 3 showing no altered mentation at this time. Patient denies any shortness of breath, palpitations, or chest pain at this time. Patient has been afebrile. Patient denies any nausea or vomiting and has been tolerating diet. Patient's facial swelling and redness has much improved and patient's current condition is stable for discharge. On exam vital signs are stable. Temp is 97.8F, pulse is 76, respirations are 16, blood pressure is 127/72, oxygen saturation is 98% on room air. Cardio S1 and S2 are muffled. Respiratory system shows diminished breath sounds at the bases otherwise clear to auscultation. Abdomen is soft and nontender. Nervous system shows no focal deficits and gait is steady. Skin assessment shows improvement swelling with minimal redness and scabbing noted with laser treatment was performed previously. No blisters, ulcers, or drainage from the sites. Please refer to medication reconciliation sheet for a list of medications. Patient Condition at Discharge: Stable Plan - Discharge Summary New Discharge Prescriptions: New Doxycycline Hyclate 100 mg PO Q12H #20 tab Aspirin 325 mg PO DAILY #30 tab Continue Fluticasone Nasal [place] [Flonase Nasal [place]] 2 spray EA NOSTRIL HS traMADol HCL [Ultram] 50 mg PO BID Sertraline [Zoloft] 50 mg PO DAILY HYDROcodone/APAP 5-325MG [[place] 5-325] 1 tab PO Q4H PRN PRN Reason: Severe Pain Triamterene-Hctz 37.5-25Mg [Dyazide 37.5-25 Capsule] 1 cap PO DAILY Sulindac [[place]] 200 mg PO BID Loratadine [Claritin] 10 mg PO DAILY Gemfibrozil [Lopid] 600 mg PO AC-BID Discharge Medication List Fluticasone Nasal [place] [Flonase Nasal [place]] 2 spray EA NOSTRIL HS 04/09/19 [History] Gemfibrozil [Lopid] 600 mg PO AC-BID 04/09/19 [History] HYDROcodone/APAP 5-325MG [[place] 5-325] 1 tab PO Q4H PRN 04/09/19 [History] Loratadine [Claritin] 10 mg PO DAILY 04/09/19 [History] Sertraline [Zoloft] 50 mg PO DAILY 04/09/19 [History] Sulindac [[place]] 200 mg PO BID 04/09/19 [History] Triamterene-Hctz 37.5-25Mg [Dyazide 37.5-25 Capsule] 1 cap PO DAILY 04/09/19 [History] traMADol HCL [Ultram] 50 mg PO BID 04/09/19 [History] Doxycycline Hyclate 100 mg PO Q12H #20 tab 04/11/19 [Rx] Aspirin 325 mg PO DAILY #30 tab 04/12/19 [Rx] Follow up Appointment(s)/Referral(s): Kamron Lee MD [Primary Care Provider] - 04/19/19 1:30 pm (Monday) Isai Powell MD [STAFF PHYSICIAN] - 04/30/19 2:30 pm (Monday) Omar Castro MD [STAFF PHYSICIAN] - 1 Week (Unable to get through. Please call to schedule appointment) Patient Instructions/Handouts: Cellulitis (DC) Activity/Diet/Wound Care/Special Instructions: Activity Limited until follow-up Continue current diet Continue complete course of antibiotics until complete Follow-up with primary care provider upon discharge Follow-up with dermatology as discussed Follow-up with cardiology in the outpatient setting for possible stress test and evaluation Discharge Disposition: HOME SELF-CARE
[2019-04-12] MEDS ORDERED: VANCOMYCIN TROUGH DUE 1 EACH MISC MISCELLANE ONE (14:00)
--- NOTE | 2019-04-12 18:03 | PN ---
PROGRESS NOTE DATE OF SERVICE: 04/12/2019 REASON FOR FOLLOWUP: Left facial cellulitis. INTERVAL HISTORY: The patient was seen on rounds earlier this afternoon. The patient has been afebrile. Left facial swelling and redness have improved. Denies any chest pain, shortness of breath or cough. No abdominal pain or diarrhea. PHYSICAL EXAMINATION: Blood pressure 127/72 with a pulse of 76, temperature 97.8. She is 98% on room air. General description is an elderly female up in the bed in no distress. HEENT EXAMINATION: Left facial swelling and redness have much improved. LUNGS: Unlabored breathing. Clear to auscultation anteriorly. HEART: S1, S2. Regular rate and rhythm. ABDOMEN: Soft. No tenderness. LABS: White count 6.6, creatinine 0.98. DIAGNOSTIC IMPRESSION AND PLAN: Patient with left facial cellulitis in this patient who did have recent dermatology surgery done for left facial skin cancer. She has overall improvement on vancomycin. Antibiotic will be switched over to oral doxycycline 100 mg twice a day for another 7 days with close outpatient followup. Questions and concerns were answered. MMODL / IJN: [id number] /
== END 2019-04-12 14:00 | disposition home or self-care (01) | DRG 871 ==
LOC: EC 17:31 → 3SCARD 21:21 → OBSVTOIN 04-11 14:14
PROVIDERS: ADMIT Hospitalist; ATTEND Hospitalist
DX: A41.9 Sepsis, unspecified organism (principal); G93.41 Metabolic encephalopathy; L03.211 Cellulitis of face; N39.0 Urinary tract infection, site not specified; G45.9 Transient cerebral ischemic attack, unspecified; Z85.3 Personal history of malignant neoplasm of breast; Z85.828 Personal history of other malignant neoplasm of skin; I10 Essential (primary) hypertension; Z79.899 Other long term (current) drug therapy; Z88.1 Allergy status to other antibiotic agents; Z90.49 Acquired absence of other specified parts of digestive tract; Z90.710 Acquired absence of both cervix and uterus; R74.8 Abnormal levels of other serum enzymes; Z88.2 Allergy status to sulfonamides
CPT/HCPCS: 36415; 70450; 71046; 80048; 80053; 80061; 80306; 81001; 82550; 83605; 84484; 85025; 85610; 85730; 87040; 87086; 93005; 93306; 96374; 99285

== ENCOUNTER 2019-05-01 13:59 | Inpatient (IN) | payer MEDICARE ==
[2019-05-01] MEDS ORDERED: ACETAMINOPHEN TAB 500 MG TAB PO STA (14:17)
[2019-05-01] MEDS ORDERED: SODIUM CHLORIDE 0.9% 1,000 ML IV STA (14:17)
--- NOTE | 2019-05-01 14:30 | ED ---
Fever HPI - General Chief Complaint: Fever Stated Complaint: Pain, not feeling well Time Seen by Provider: 05/01/19 14:05 Source: patient Mode of arrival: ambulatory Limitations: no limitations - History of Present Illness Initial Comments: Patient is a 73-year-old female, with history of hypertension, sepsis, presenting to emergency Department with complaints of body aches and fever that started this morning. Patient states she has not been able to eat all day and has been more fatigued than usual. Patient denies headache, chest pain, shortness of breath, abdominal pain, nausea, vomiting, diarrhea, or urinary complaints at this time. Patient states she was hospitalized a few weeks ago for sepsis secondary to facial cellulitis. Patient has been doing well since the hospitalization. Patient states yesterday she felt fine all day. Patient has not received the influenza vaccine this year. Patient did not take Tylenol or Motrin today. Patient has no other complaints at this time. Patient's sister is here with her now. Upon arrival to the ER patient's temp is a 102.7, pulse 88, respirations 20, 131/74, 95% on room air. - Related Data Home Medications Medication Instructions Recorded Confirmed Fluticasone Nasal [place] [Flonase 2 spray EA NOSTRIL HS 04/09/19 05/01/19 Nasal [place]] Gemfibrozil [Lopid] 600 mg PO AC-BID 04/09/19 05/01/19 HYDROcodone/APAP 5-325MG [[place] 1 tab PO Q4H PRN 04/09/19 05/01/19 5-325] Loratadine [Claritin] 10 mg PO DAILY 04/09/19 05/01/19 Sertraline [Zoloft] 50 mg PO DAILY 04/09/19 05/01/19 Sulindac [Clinoril] 200 mg PO BID 04/09/19 05/01/19 Triamterene-Hctz 37.5-25Mg 1 cap PO DAILY 04/09/19 05/01/19 [Dyazide 37.5-25 Capsule] traMADol HCL [Ultram] 50 mg PO BID 04/09/19 05/01/19 Allergies Allergy/AdvReac Type Severity Reaction Status Date / Time adhesive tape Allergy Rash/Hives Verified 05/01/19 17:14 cephalexin [From Keflex] Allergy Rash/Hives Verified 05/01/19 17:14 sulfamethoxazole Allergy Rash/Hives Verified 05/01/19 17:14 [From Bactrim] trimethoprim [From Bactrim] Allergy Rash/Hives Verified 05/01/19 17:14 aspirin AdvReac Nausea & Verified 05/01/19 17:15 Vomiting & Diarrhea GLADYS MUSTARD Allergy Anaphylaxis Uncoded 05/01/19 17:14 Review of Systems ROS Statement: Those systems with pertinent positive or pertinent negative responses have been documented in the HPI. ROS Other: All systems not noted in ROS Statement are negative. Past Medical History Past Medical History: Cancer, Hypertension Additional Past Medical History / Comment(s): Right breast lump-cancerous, Sepsis 03/2019 History of Any Multi-Drug Resistant Organisms: None Reported Past Surgical History: Breast Surgery, Cholecystectomy, Hysterectomy Past Psychological History: Depression Smoking Status: Never smoker Past Alcohol Use History: Occasional Past Drug Use History: None Reported - Past Family History Mother Family Medical History: Myocardial Infarction ([place]) Brother(s) Family Medical History: Cancer Additional Family Medical History / Comment(s): Lung Cancer- at age 47 General Exam - General Exam Comments Initial Comments: GENERAL: Well-appearing, well-nourished and in no acute distress. HEAD: Atraumatic, normocephalic. EYES: Pupils equal round and reactive to light, extraocular movements intact, sclera anicteric, conjunctiva are normal. ENT: TMs normal, nares patent, oropharynx clear without exudates. Moist mucous membranes. NECK: Normal range of motion, supple without lymphadenopathy or JVD. LUNGS: Breath sounds clear to auscultation bilaterally and equal. No wheezes rales or rhonchi. HEART: Regular rate and rhythm without murmurs, rubs or gallops. ABDOMEN: Soft, nontender, normoactive bowel sounds. No guarding, no rebound. No masses appreciated. : Deferred EXTREMITIES: Normal range of motion, no pitting or edema. No clubbing or cyanosis. NEUROLOGICAL: Cranial nerves II through XII grossly intact. Normal speech, normal gait. PSYCH: Normal mood, normal affect. SKIN: Warm, Dry, normal turgor, no rashes or lesions noted. Limitations: no limitations Course Vital Signs 05/01/19 05/01/19 05/01/19 14:02 14:25 15:41 Temperature 101.9 F H 102.7 F H 99.4 F Pulse Rate 88 99 Respiratory 20 16 Rate Blood Pressure 131/74 136/71 O2 Sat by Pulse 95 99 Oximetry 05/01/19 17:09 Temperature Pulse Rate 86 Respiratory 16 Rate Blood Pressure 136/79 O2 Sat by Pulse 99 Oximetry Medical Decision Making - Medical Decision Making Patient is a 73-year-old female presenting with a fever and body aches that started this morning. Patient was recently admitted approximately 3 weeks ago for sepsis. Patient is febrile upon arrival. Patient denies chest pain, cough, shortness of breath, abdominal pain, urinary complaints at this time. CBC is normal. Liver enzymes are elevated today. Lactic acid is 0.9. Influenza is negative. UA is normal. Chest x-ray is normal. Patient was given Tylenol and fluids with improvement in the fever. Case discussed with Dr. Jaramillo. Patient states she is not comfortable to go home today even her recent hospitalization and wishes to be observed. Dr. Suggs accepts patient. - Lab Data Result diagrams: 05/01/19 14:38 05/01/19 14:38 Lab Results 05/01/19 05/01/19 05/01/19 Range/Units 14:29 14:38 14:38 WBC 8.3 (3.8-10.6) k/uL RBC 4.58 (3.80-5.40) m/uL Hgb 13.7 (11.4-16.0) gm/dL Hct 43.4 (34.0-46.0) % MCV 94.8 (80.0-100.0) fL MCH 29.9 (25.0-35.0) pg MCHC 31.6 (31.0-37.0) g/dL RDW 12.9 (11.5-15.5) % Plt Count 288 (150-450) k/uL Neutrophils % 90 % Lymphocytes % 6 % Monocytes % 2 % Eosinophils % 1 % Basophils % 1 % Neutrophils # 7.5 (1.3-7.7) k/uL Lymphocytes # 0.5 L (1.0-4.8) k/uL Monocytes # 0.2 (0-1.0) k/uL Eosinophils # 0.0 (0-0.7) k/uL Basophils # 0.1 (0-0.2) k/uL Sodium 137 (137-145) mmol/L Potassium 3.8 (3.5-5.1) mmol/L Chloride 100 (98-107) mmol/L Carbon Dioxide 26 (22-30) mmol/L Anion Gap 11 mmol/L BUN 16 (7-17) mg/dL Creatinine 0.81 (0.52-1.04) mg/dL Est GFR (CKD-EPI)AfAm 84 (>60 ml/min/1.73 sqM) Est GFR (CKD-EPI)NonAf 73 (>60 ml/min/1.73 sqM) Glucose 110 H (74-99) mg/dL Plasma Lactic Acid Jeffry (0.7-2.0) mmol/L Calcium 10.3 H (8.4-10.2) mg/dL Total Bilirubin 1.3 (0.2-1.3) mg/dL AST 119 H (14-36) U/L ALT 119 H (9-52) U/L Alkaline Phosphatase 417 H (38-126) U/L Total Protein 7.2 (6.3-8.2) g/dL Albumin 4.3 (3.5-5.0) g/dL Urine Color Urine Appearance (Clear) Urine pH (5.0-8.0) Ur Specific [place] (1.001-1.035) Urine Protein (Negative) Urine Glucose (UA) (Negative) Urine Ketones (Negative) Urine Blood (Negative) Urine Nitrite (Negative) Urine Bilirubin (Negative) Urine Urobilinogen (<2.0) mg/dL Ur Leukocyte Esterase (Negative) Urine RBC (0-5) /hpf Urine WBC (0-5) /hpf Ur Squamous Epith Cells (0-4) /hpf Urine Mucus (None) /hpf Influenza Type A RNA Not Detected (Not Detectd) Influenza Type B (PCR) Not Detected (Not Detectd) 05/01/19 05/01/19 Range/Units 14:38 15:41 WBC (3.8-10.6) k/uL RBC (3.80-5.40) m/uL Hgb (11.4-16.0) gm/dL Hct (34.0-46.0) % MCV (80.0-100.0) fL MCH (25.0-35.0) pg MCHC (31.0-37.0) g/dL RDW (11.5-15.5) % Plt Count (150-450) k/uL Neutrophils % % Lymphocytes % % Monocytes % % Eosinophils % % Basophils % % Neutrophils # (1.3-7.7) k/uL Lymphocytes # (1.0-4.8) k/uL Monocytes # (0-1.0) k/uL Eosinophils # (0-0.7) k/uL Basophils # (0-0.2) k/uL Sodium (137-145) mmol/L Potassium (3.5-5.1) mmol/L Chloride (98-107) mmol/L Carbon Dioxide (22-30) mmol/L Anion Gap mmol/L BUN (7-17) mg/dL Creatinine (0.52-1.04) mg/dL Est GFR (CKD-EPI)AfAm (>60 ml/min/1.73 sqM) Est GFR (CKD-EPI)NonAf (>60 ml/min/1.73 sqM) Glucose (74-99) mg/dL Plasma Lactic Acid Jeffry 0.9 (0.7-2.0) mmol/L Calcium (8.4-10.2) mg/dL Total Bilirubin (0.2-1.3) mg/dL AST (14-36) U/L ALT (9-52) U/L Alkaline Phosphatase (38-126) U/L Total Protein (6.3-8.2) g/dL Albumin (3.5-5.0) g/dL Urine Color Yellow Urine Appearance Clear (Clear) Urine pH 5.5 (5.0-8.0) Ur Specific [place] 1.006 (1.001-1.035) Urine Protein Negative (Negative) Urine Glucose (UA) Negative (Negative) Urine Ketones Negative (Negative) Urine Blood Negative (Negative) Urine Nitrite Negative (Negative) Urine Bilirubin Negative (Negative) Urine Urobilinogen <2.0 (<2.0) mg/dL Ur Leukocyte Esterase Trace H (Negative) Urine RBC 3 (0-5) /hpf Urine WBC 2 (0-5) /hpf Ur Squamous Epith Cells <1 (0-4) /hpf Urine Mucus Rare H (None) /hpf Influenza Type A RNA (Not Detectd) Influenza Type B (PCR) (Not Detectd) Disposition Clinical Impression: Febrile illness, acute Disposition: ADMITTED IP TO THIS HOSP Condition: Stable Is patient prescribed a controlled substance at d/c from ED?: No Decision Date: 05/01/19 Decision Time: 16:42
[2019-05-01 14:55] LABS: Basophils # (A) 0.1 k/uL (0-0.2); Basophils % (A) 1 %; Eosinophils % (A) 1 %; HCT 43.4 % (34.0-46.0); HGB 13.7 gm/dL (11.4-16.0); Lymphocytes # (A) 0.5 k/uL (1.0-4.8); Lymphocytes % (A) 6 %; MCH 29.9 pg (25.0-35.0); MCHC 31.6 g/dL (31.0-37.0); MCV 94.8 fL (80.0-100.0); Monocytes # (A) 0.2 k/uL (0-1.0); Monocytes % (A) 2 %; Neutrophils # (A) 7.5 k/uL (1.3-7.7); Neutrophils % (A) 90 %; Platelet Count 288 k/uL (150-450); RBC 4.58 m/uL (3.80-5.40); RDW 12.9 % (11.5-15.5); WBC 8.3 k/uL (3.8-10.6)
--- NOTE | 2019-05-01 15:03 | XR ---
EXAMINATION TYPE: XR chest 2V DATE OF EXAM: 05/01/2019 COMPARISON: 04/09/2019 HISTORY: Fatigue, body aches, and fever TECHNIQUE: Frontal and lateral views of the chest are obtained. FINDINGS: There is no focal air space opacity, pleural effusion, or pneumothorax seen. The cardiac silhouette size is within normal limits. The osseous structures are intact. Mild degenerative figueroa es of the spine. Cholecystectomy clips best seen on the lateral view. IMPRESSION: No acute cardiopulmonary process.
[2019-05-01 15:08] LABS: Albumin 4.3 g/dL (3.5-5.0); Calcium 10.3 mg/dL (8.4-10.2); Potassium 3.8 mmol/L (3.5-5.1); Total Bilirubin 1.3 mg/dL (0.2-1.3); Total Protein 7.2 g/dL (6.3-8.2)
[2019-05-01 16:08] LABS: Appearance,Urine Clear (Clear); Bilirubin,Urine Negative (Negative); Blood,Urine Negative (Negative); Color,Urine Yellow; Glucose,Urine (UA) Negative (Negative); Ketones,Urine Negative (Negative); Leukocyte Esterase,Urine Trace (Negative); Mucus,Urine Rare /hpf; Nitrite,Urine Negative (Negative); PH, Urine 5.5 (5.0-8.0); Protein,Urine Negative (Negative); RBC,Urine 3 /hpf (0-5); Specific Gravity,Urine 1.006 (1.001-1.035); Squamous Epithelial Cell,Urine <1 /hpf (0-4); Urobilinogen,Urine <2.0 mg/dL (<2.0)
[2019-05-01] MEDS ORDERED: ONDANSETRON 4 MG/2 ML VIAL IVP PRN (16:38)
[2019-05-01] MEDS ORDERED: NALOXONE 0.4 MG/ML 1 ML VIAL IV PRN (16:38)
[2019-05-01] MEDS ORDERED: ACETAMINOPHEN TAB 325 MG TAB PO PRN (16:38)
[2019-05-01] MEDS ORDERED: VANCOMYCIN IV PER PHARMACY 1 EACH MISC MISCELLANE PRN (16:41)
[2019-05-01] MEDS ORDERED: VANCOMYCIN 1,000 MG in SODIUM CHLORIDE 0.9% 250 ML IVPB STA (16:48)
[2019-05-01] MEDS: SODIUM CHLORIDE 0.9% 1,000 ML IV SCH (17:05)
[2019-05-01] MEDS ORDERED: HYDROcodone/APAP 5-325MG 1 EACH TAB PO PRN (21:53)
[2019-05-02] MEDS ORDERED: VANCOMYCIN 1,000 MG in SODIUM CHLORIDE 0.9% 250 ML IVPB SCH (06:00)
[2019-05-02] MEDS: ETODOLAC 400 MG TAB PO SCH ×3 (07:29→23:09)
[2019-05-02] MEDS: TRIAMTERENE-HCTZ 37.5-25MG 1 EACH CAP PO SCH (07:30)
[2019-05-02] MEDS: traMADol 50 MG TAB PO SCH ×2 (07:30→23:09)
[2019-05-02] MEDS: LORATADINE 10 MG TAB PO SCH (07:31)
[2019-05-02] MEDS: SERTRALINE 50 MG TAB PO SCH (07:31)
[2019-05-02] MEDS: FENOFIBRATE 160 MG TAB PO SCH (07:31)
[2019-05-02] MEDS: SODIUM CHLORIDE 0.9% 1,000 ML IV SCH (12:34)
[2019-05-02] MEDS ORDERED: IOPAMIDOL CONTRAST (ORAL USE) VIAL PO PRN (19:24)
--- NOTE | 2019-05-02 19:51 | P.HPIM ---
History of Present Illness H&P Date: 05/02/19 Chief Complaint: Fever History of presenting complaint: This is a very pleasant [address] Kamron Lee. Patient was here in the hospital in April 11. She then seemed to had sepsis. Patient was treated on left cheek with laser treatment for cancer. She developed cellulitis secondary to that. She was treated with IV vancomycin and discharged on doxycycline. She completed her course and all symptoms are resolved. And she was back to baseline. On that admission blood and urine cultures were negative. Patient 2 nights ago started for his fever and felt totally rundown with aching muscles all over. Also the fever lasted of 101.2. And was brought in for the same. He has no respiratory symptoms. No nasal congestion. No urinary symptoms. No change in her bowel habit. No skin changes. Denies any headache no neck stiffness no visual changes. No nausea vomiting. Her appetite is good. No INFORMATION ASSURANCE OFFICER symptoms. Patient was started on vancomycin the ER. Review of systems: GEN.: Fever EYES: None HEENT: None NECK: None RESPIRATORY: None CARDIOVASCULAR: None GASTROINTESTINAL: None GENITOURINARY: None MUSCULOSKELETAL: None LYMPHATICS: None HEMATOLOGICAL: None PSYCHIATRY: None NEUROLOGICAL: None Past medical history: Sepsis in March 2019 from cellulitis of the cheek resulting from laser treatment of skin cancer. Hypertension, depression Social history: Does not smoke. Alcohol occasional. Lives alone. Physical examination: VITAL SIGNS: T-max 101.2, 87, 16, 133/61, 95% GENERAL: BMI 22.0, sitting up, comfortable. EYES: Pupils equal. Conjunctiva normal. HEENT: External appearance of nose and ears normal, oral cavity grossly normal. NECK: JVD not raised; masses not palpable. HEART: First and second heart sounds are normal; no edema. LUNGS: Respiratory rate normal; clear to auscultation. ABDOMEN: Soft, nontender, liver spleen not palpable, no masses palpable. PSYCH: Alert and oriented x3; mood and affect normal. NEUROLOGICAL: Cranial nerves grossly intact; no facial asymmetry, power and sensation grossly intact. LYMPHATICS: No lymph nodes palpable in the axilla and neck INVESTIGATIONS, reviewed in the clinical context: White count 8.3 hemoglobin 10.7 lymphocytes decreased at 0.5 potassium 3.8 creatinine 0.81 AST 119 ALT 119 alkaline phosphatase 417 UA showing trace of leukoesterase Influenza A and B- Chest x-ray film-personally reviewed by me lung hilario to be clear Assessment: -This is a patient was here about 3 weeks ago that was cellulitis of the left cheek treated with vancomycin followed by doxycycline completely felt better after that. Now presents with fever of 2 days duration with no respiratory, pulmonary, urinary or dermatological symptoms. Does not have any neurological symptoms. Did feel achy all over but that is felt better. Was empirically given vancomycin in the ER. Appetite is fair. This could be underlying viral infection is clearing up. No obvious evidence of any bacterial infection. -Essential hypertension -Depression not otherwise specified Plan: Patient clinically does not look much sick. It could be just a viral infection is getting better. Patient has slight elevation of LFTs. We will check a CMV and a EBV. We will also do a computed tomography scan of the chest abdomen and pelvis. Vancomycin will be stopped as there is no source of infection. Care was discussed with the patient. Questions were answered. Consult ID. Past Medical History Past Medical History: Cancer, Hypertension Additional Past Medical History / Comment(s): Right breast lump-cancerous, Sepsis 03/2019 History of Any Multi-Drug Resistant Organisms: None Reported Past Surgical History: Breast Surgery, Cholecystectomy, Hysterectomy Past Anesthesia/Blood Transfusion Reactions: No Reported Reaction Past Psychological History: Depression Smoking Status: Never smoker Past Alcohol Use History: Occasional Past Drug Use History: None Reported - Past Family History Mother Family Medical History: Myocardial Infarction ([place]) Brother(s) Family Medical History: Cancer Additional Family Medical History / Comment(s): Lung Cancer- at age 47 Medications and Allergies Home Medications Medication Instructions Recorded Confirmed Type Fluticasone Nasal [place] [Flonase 2 spray EA NOSTRIL HS 04/09/19 05/01/19 History Nasal [place]] Gemfibrozil [Lopid] 600 mg PO AC-BID 04/09/19 05/01/19 History HYDROcodone/APAP 5-325MG [[place] 1 tab PO Q4H PRN 04/09/19 05/01/19 History 5-325] Loratadine [Claritin] 10 mg PO DAILY 04/09/19 05/01/19 History Sertraline [Zoloft] 50 mg PO DAILY 04/09/19 05/01/19 History Sulindac [Clinoril] 200 mg PO BID 04/09/19 05/01/19 History Triamterene-Hctz 37.5-25Mg 1 cap PO DAILY 04/09/19 05/01/19 History [Dyazide 37.5-25 Capsule] traMADol HCL [Ultram] 50 mg PO BID 04/09/19 05/01/19 History Allergies Allergy/AdvReac Type Severity Reaction Status Date / Time adhesive tape Allergy Rash/Hives Verified 05/01/19 17:14 cephalexin [From Keflex] Allergy Rash/Hives Verified 05/01/19 17:14 sulfamethoxazole Allergy Rash/Hives Verified 05/01/19 17:14 [From Bactrim] trimethoprim [From Bactrim] Allergy Rash/Hives Verified 05/01/19 17:14 aspirin AdvReac Nausea & Verified 05/01/19 17:15 Vomiting & Diarrhea GLADYS MUSTARD Allergy Anaphylaxis Uncoded 05/01/19 17:14 Physical Exam Vitals: Vital Signs Temp Pulse Pulse Resp BP BP Pulse Ox 05/02/19 05:28 98.7 F 63 16 141/81 92 L 05/02/19 00:14 100.0 F H 05/01/19 22:59 101.2 F H 05/01/19 21:00 99.2 F 87 16 133/61 95 05/01/19 18:24 98.6 F 59 L 14 120/67 97 05/01/19 17:09 86 16 136/79 99 05/01/19 15:41 99.4 F 99 16 136/71 99 05/01/19 14:25 102.7 F H 05/01/19 14:02 101.9 F H 88 20 131/74 95 Intake and Output 05/01/19 05/02/19 05/02/19 22:59 06:59 14:59 Intake Total 210 480 Balance 210 480 Intake: Intake, IV Titration 210 480 Amount Sodium Chloride 0.9% 1, 210 480 000 ml @ 60 mls/hr IV . [id number] [facility] Rx#:[id number] Other: Voiding Method Toilet Toilet # Voids 2 1 Results CBC & Chem 7: 05/01/19 14:38 05/01/19 14:38 Labs: Abnormal Lab Results - Last 24 Hours (Table) 10/09/19 10/09/19 10/09/19 Range/Units 14:38 14:38 15:41 Lymphocytes # 0.5 L (1.0-4.8) k/uL Glucose 110 H (74-99) mg/dL Calcium 10.3 H (8.4-10.2) mg/dL AST 119 H (14-36) U/L ALT 119 H (9-52) U/L Alkaline Phosphatase 417 H (38-126) U/L Ur Leukocyte Esterase Trace H (Negative) Urine Mucus Rare H (None) /hpf Thrombosis Risk Factor Assmnt - Choose All That Apply Each Risk Factor Represents 2 Points: Age 61-74 years Thrombosis Risk Factor Assessment Total Risk Factor Score: 2 Thrombosis Risk Factor Assessment Level: Low Risk
[2019-05-02] MEDS ORDERED: ENOXAPARIN 40 MG/0.4 ML SYRINGE SQ SCH (21:00)
[2019-05-02] MEDS ORDERED: FLUTICASONE 50MCG/SPRAY NASAL 16GM EA NOSTRIL SCH (21:00)
[2019-05-02] MEDS: IOPAMIDOL CONTRAST (ORAL USE) VIAL PO PRN ×2 (21:10→22:11)
--- NOTE | 2019-05-03 00:08 | CT ---
EXAMINATION TYPE: CT ChestAbdPelvis w con DATE OF EXAM: 05/02/2019 COMPARISON: None HISTORY: Febrile w/out source. CT DLP: 586 mGycm Automated exposure control for dose reduction was used. CONTRAST: CT scan of the chest, abdomen and pelvis is performed with Oral Contrast and with IV Contrast, patien t injected with 100 mL of Isovue 300. FINDINGS: The lungs are clear of infiltrate. There is no evidence of a pulmonary mass. There is no pleural effu beltran or pneumothorax. There is no mediastinal adenopathy. Thoracic aorta is intact. There is no aneur ysm or dissection. There are no hilar masses. There is no pericardial effusion. There are clips from cholecystectomy. Liver shows no focal defect. Spleen appears intact. The stomach is intact. There is no pancreatic mass. There is no adrenal mass. Kidneys show satisfactory contrast opacification. There is no hydronephrosi s. Ureters are not dilated. There is no retroperitoneal adenopathy. Bladder distends smoothly. There is no inguinal hernia. There is no sign of a pelvic mass. There is normal oral contrast opacification of the bowel. There is no sign of a bowel obstruction. There is no mesenteric edema. There is no asc ites or free air. Terminal ileum appears normal. Appendix is not definitely seen. There is no sign of thickened appendix. Thoracic and lumbar vertebra appear intact. There is no compression fracture. Bony pelvis appears int act. The ribs appear intact. IMPRESSION: Negative CT scan chest abdomen pelvis. I do not see a cause for fever.
[2019-05-03 04:37] LABS: EBV-EA (IgG) <0.2 AI; EBV-EBNA(IgG) >8.0 AI; EBV-VCA (IgG) >8.0 AI
[2019-05-03 04:38] LABS: EBV-VCA (IgM) <0.2 AI
--- NOTE | 2019-05-03 08:51 | US ---
EXAMINATION TYPE: US abdomen limited DATE OF EXAM: 05/03/2019 COMPARISON: Prior CT dated 05/02/2019 CLINICAL HISTORY: Increased LFTs/fever. cholecystectomy, 28yrs ago, fever and elevated labs EXAM MEASUREMENTS: Liver Length: 13.6 cm Gallbladder Wall: Surgically absent CBD: 0.7 cm Right Kidney: 9.6 x 4.2 x 4.7 cm Pancreas: wnl Liver: wnl Gallbladder: Surgically absent Evidence for sonographic Georges's sign: no CBD: wnl Right Kidney: wnl CT scan shows some fluid attenuation at the level of the inferior body the pancreas, posterior wall o f the stomach and there is some focal thickening present at the gastric antrum. Ascites not evident o n ultrasound. IMPRESSION: Postop changes. Inflammatory change suspected within the abdomen, correlate for possible pancreatitis, peptic ulcer disease.
[2019-05-03 08:55] LABS: African American GFR (CKD) >90 (>60 ml/min/1.73 sqM)
[2019-05-03] MEDS: SODIUM CHLORIDE 0.9% 1,000 ML IV SCH (10:09)
[2019-05-03] MEDS: ETODOLAC 400 MG TAB PO SCH (10:10)
[2019-05-03] MEDS: TRIAMTERENE-HCTZ 37.5-25MG 1 EACH CAP PO SCH (10:11)
[2019-05-03] MEDS: FENOFIBRATE 160 MG TAB PO SCH (10:11)
[2019-05-03] MEDS: LORATADINE 10 MG TAB PO SCH (10:11)
[2019-05-03] MEDS: SERTRALINE 50 MG TAB PO SCH (10:11)
[2019-05-03] MEDS: traMADol 50 MG TAB PO SCH (10:11)
[2019-05-03 12:23] VITALS: BP 123/74; PULSE 60; RESP 15; TEMP 98.1
--- NOTE | 2019-05-03 20:15 | P.DS ---
Providers Date of admission: 05/01/19 16:20 Expected date of discharge: 05/03/19 Attending physician: Vlad Suggs Consults: 05/02/19 19:51 Consult Physician Routine Consulting Provider: Omar Martinez Consult Reason/Comments: FUO Do you want consulting provider notified?: Yes Primary care physician: Kamron Lee [facility] Course: Chief Complaint: Fever History of presenting complaint: This is a very pleasant [address] Kamron Lee. Patient was here in the hospital in April 11. She then seemed to had sepsis. Patient was treated on left cheek with laser treatment for cancer. She developed cellulitis secondary to that. She was treated with IV vancomycin and discharged on doxycycline. She completed her course and all symptoms are resolved. And she was back to baseline. On that admission blood and urine cultures were negative. Patient 2 nights ago started for his fever and felt totally rundown with aching muscles all over. Also the fever lasted of 101.2. And was brought in for the same. He has no respiratory symptoms. No nasal congestion. No urinary symptoms. No change in her bowel habit. No skin changes. Denies any headache no neck stiffness no visual changes. No nausea vomiting. Her appetite is good. No SUPERVISOR FURNACE PROCESS symptoms. Patient was started on vancomycin the ER. Vancomycin was then discontinued. Patient had a chest abdomen pelvis computed tomography scan, abdominal ultrasound, checks x-ray. All were negative. The following day patient was totally afebrile and all physical examination was negative. Patient's feeling well. It is felt that patient had a viral syndrome. That improved. Care was discussed at length with the patient. Also discussed with Dr. martinez from infection disease. Discussion and discharge planning more than 35 minutes Physical examination: VITAL SIGNS: Afebrile, 60, 15, 123/74, 96% room air GENERAL: Sitting up, comfortable cheerful. EYES: Pupils equal. Conjunctiva normal. HEENT: External appearance of nose and ears normal, oral cavity grossly normal. NECK: JVD not raised; masses not palpable. HEART: First and second heart sounds are normal; no edema. LUNGS: Respiratory rate normal; clear to auscultation. ABDOMEN: Soft, nontender, liver spleen not palpable, no masses palpable. PSYCH: Alert and oriented x3; mood and affect normal. NEUROLOGICAL: Cranial nerves grossly intact; no facial asymmetry, power and sensation grossly intact. INVESTIGATIONS, reviewed in the clinical context: White count 8.3 hemoglobin 10.7 lymphocytes decreased at 0.5 potassium 3.8 creatinine 0.81 AST 119 ALT 119 alkaline phosphatase 417 UA showing trace of leukoesterase Influenza A and B- Chest x-ray film-personally reviewed by me lung hilario to be clear Chest abdomen pelvis-unremarkable Abdominal ultrasound-unremarkable Influenza A and B both negative. Patient has slight elevation of LFTs can be followed as an outpatient. Discharge diagnoses: -Acute viral syndrome. Self-limiting. -Essential hypertension -Depression not otherwise specified -Slight elevation of LFTs. Can be followed as an outpatient. Plan: Disposition home Patient Condition at Discharge: Stable Plan - Discharge Summary New Discharge Prescriptions: Continue Fluticasone Nasal [place] [Flonase Nasal [place]] 2 spray EA NOSTRIL HS traMADol HCL [Ultram] 50 mg PO BID Sertraline [Zoloft] 50 mg PO DAILY HYDROcodone/APAP 5-325MG [[place] 5-325] 1 tab PO Q4H PRN PRN Reason: Severe Pain Triamterene-Hctz 37.5-25Mg [Dyazide 37.5-25 Capsule] 1 cap PO DAILY Sulindac [Clinoril] 200 mg PO BID Loratadine [Claritin] 10 mg PO DAILY Gemfibrozil [Lopid] 600 mg PO AC-BID Discharge Medication List Fluticasone Nasal [place] [Flonase Nasal [place]] 2 spray EA NOSTRIL HS 04/09/19 [History] Gemfibrozil [Lopid] 600 mg PO AC-BID 04/09/19 [History] HYDROcodone/APAP 5-325MG [[place] 5-325] 1 tab PO Q4H PRN 04/09/19 [History] Loratadine [Claritin] 10 mg PO DAILY 04/09/19 [History] Sertraline [Zoloft] 50 mg PO DAILY 04/09/19 [History] Sulindac [Clinoril] 200 mg PO BID 04/09/19 [History] Triamterene-Hctz 37.5-25Mg [Dyazide 37.5-25 Capsule] 1 cap PO DAILY 04/09/19 [History] traMADol HCL [Ultram] 50 mg PO BID 04/09/19 [History] Follow up Appointment(s)/Referral(s): Kamron Lee MD [Primary Care Provider] - 05/07/19 1:00 pm Patient Instructions/Handouts: Fever in Adults (ED) Discharge Disposition: HOME SELF-CARE
== END 2019-05-03 15:10 | disposition home or self-care (01) | DRG 866 ==
LOC: EC 13:59 → 3NMEDONC 16:20
PROVIDERS: ADMIT Hospitalist; ATTEND Hospitalist
DX: B34.9 Viral infection, unspecified (principal); F32.9 Major depressive disorder, single episode, unspecified; I10 Essential (primary) hypertension; R79.89 Other specified abnormal findings of blood chemistry; Z79.899 Other long term (current) drug therapy; Z85.828 Personal history of other malignant neoplasm of skin; Z88.6 Allergy status to analgesic agent; Z88.1 Allergy status to other antibiotic agents; Z88.2 Allergy status to sulfonamides; Z91.048 Other nonmedicinal substance allergy status; Z90.710 Acquired absence of both cervix and uterus; Z90.49 Acquired absence of other specified parts of digestive tract; Z85.3 Personal history of malignant neoplasm of breast; Z80.1 Family history of malignant neoplasm of trachea, bronchus and lung; Z82.49 Family history of ischemic heart disease and other diseases of the circulatory system
CPT/HCPCS: 36415; 71046; 71260; 74177; 76705; 80053; 81001; 82565; 83605; 85025; 86644; 86645; 86663; 86664; 86665; 87040; 87502; 96360; 99284

== ENCOUNTER 2021-08-27 18:28 | Inpatient (IN) | payer MEDICARE ==
[2021-08-27] MEDS ORDERED: PIPERACILLIN-TAZOBACTAM 3.375 GM in SODIUM CHLORIDE 0.9% 100 ML IVPB STA (19:03)
--- NOTE | 2021-08-27 19:11 | ED ---
General Adult HPI - General Chief complaint: Altered Mental Status Stated complaint: Altered mental status, UTI Time Seen by Provider: 08/27/21 18:30 Source: patient, EMS, RN notes reviewed, old records reviewed Mode of arrival: EMS Limitations: altered mental status - History of Present Illness Initial comments: This is a 75-year-old female whose family Center to the emergency department because of altered mental status patient herself is not giving much history. Report was given was that the patient was found down family got her back up into a chair and thought she was fine but they came back a little while later and she was altered and didn't seem at her baseline sleep brought her to the emergency department. Family states he did not know how long she was down for. Patient arrived with 102 fever. Patient is altered and when I asked if she has any complaints she says no. Patient was able to tell me she got the Motrin during the COVID vaccine when I asked her about vaccine status no other history is currently available - Related Data Home Medications Medication Instructions Recorded Confirmed Fluticasone Nasal [place] [Flonase 1 spr EA NOSTRIL DAILY 04/09/19 08/27/21 Nasal [place]] Gemfibrozil [Lopid] 600 mg PO BID 04/09/19 08/27/21 Sulindac [Clinoril] 200 mg PO AC-BID 04/09/19 08/27/21 Triamterene-Hctz 37.5-25Mg 1 cap PO DAILY 04/09/19 08/27/21 [Dyazide 37.5-25 Capsule] traMADol HCL [Ultram] 50 mg PO Q6H PRN 04/09/19 08/27/21 Clobetasol Propionate [Temovate 1 applic TOPICAL TUTH 08/27/21 08/27/21 0.05% Oint] Allergies Allergy/AdvReac Type Severity Reaction Status Date / Time adhesive tape Allergy Rash/Hives Verified 08/27/21 18:38 cephalexin [From Keflex] Allergy Rash/Hives Verified 08/27/21 18:38 sulfamethoxazole Allergy Rash/Hives Verified 08/27/21 18:38 [From Bactrim] trimethoprim [From Bactrim] Allergy Rash/Hives Verified 08/27/21 18:38 aspirin AdvReac Nausea & Verified 08/27/21 18:38 Vomiting & Diarrhea GLADYS MUSTARD Allergy Anaphylaxis Uncoded 08/27/21 18:38 Review of Systems ROS Statement: Those systems with pertinent positive or pertinent negative responses have been documented in the HPI. ROS Other: All systems not noted in ROS Statement are negative. Past Medical History Past Medical History: Cancer, Hypertension Additional Past Medical History / Comment(s): Right breast lump-cancerous, Sepsis 03/2019 History of Any Multi-Drug Resistant Organisms: None Reported Past Surgical History: Breast Surgery, Cholecystectomy, Hysterectomy Past Anesthesia/Blood Transfusion Reactions: No Reported Reaction Past Psychological History: Depression Smoking Status: Unknown if ever smoked Past Alcohol Use History: Occasional Past Drug Use History: None Reported - Past Family History Mother Family Medical History: Myocardial Infarction ([place]) Brother(s) Family Medical History: Cancer Additional Family Medical History / Comment(s): Lung Cancer- at age 47 General Exam - General Exam Comments Initial Comments: GENERAL: Patient is well-developed and well-nourished. Patient is nontoxic and well- hydrated and is in mild distress. Patient is very lethargic and falls asleep quickly ENT: Neck is soft and supple. No significant lymphadenopathy is noted. Oropharynx is clear. Moist mucous membranes. Neck has full range of motion without eliciting any pain. EYES: The sclera were anicteric and conjunctiva were pink and moist. Extraocular movements were intact and pupils were equal round and reactive to light. Eyelids were unremarkable. PULMONARY: Unlabored respirations. Good breath sounds bilaterally. No audible rales rhonchi or wheezing was noted. CARDIOVASCULAR: There is a regular rate and rhythm without any murmurs gallops or rubs. ABDOMEN: Soft and nontender with normal bowel sounds. SKIN: Skin is clear with no lesions or rashes and otherwise unremarkable. NEUROLOGIC: Patient is alert and oriented 1. I cannot get patient to follow simple commands so I cannot assess her cranial nerve or motor or sensory function. MUSCULOSKELETAL: Normal extremities with adequate strength and full range of motion. No lower extremity swelling or edema. No calf tenderness. LYMPHATICS: No significant lymphadenopathy is noted PSYCHIATRIC: Normal psychiatric evaluation. Limitations: altered mental status Course Vital Signs 08/27/21 18:32 Temperature 102.3 F H Pulse Rate 104 H Respiratory 20 Rate Blood Pressure 148/102 O2 Sat by Pulse 90 L Oximetry Medical Decision Making - Medical Decision Making EKG shows normal sinus rhythm at 98 bpm ID interval 120 QRS is 88 QT interval 326 QTC is 416. Patient's EKG shows no ST segment elevation or depression. Patient awakened 28,000 the patient was started on Zosyn. Patient got one and a half liters of normal saline. Patient's CPK was greater than 5000 started the patient on a bicarbonate drip. I spoke with Dr. Suggs agreed to admit the patient admitted the patient co ntinue the bicarb drip I consult to nephrology and I started the patient on Levaquin. - Lab Data Result diagrams: 08/27/21 19:00 08/27/21 19:00 Lab Results 08/27/21 08/27/21 08/27/21 Range/Units 19:00 19:00 19:00 WBC 28.9 H (3.8-10.6) k/uL RBC 4.00 (3.80-5.40) m/uL Hgb 11.5 (11.4-16.0) gm/dL Hct 36.0 (34.0-46.0) % MCV 90.0 (80.0-100.0) fL MCH 28.9 (25.0-35.0) pg MCHC 32.1 (31.0-37.0) g/dL RDW 14.1 (11.5-15.5) % Plt Count 429 (150-450) k/uL MPV 8.2 Neutrophils % 97 % Lymphocytes % 2 % Monocytes % 1 % Eosinophils % 0 % Basophils % 0 % Neutrophils # 28.0 H (1.3-7.7) k/uL Lymphocytes # 0.4 L (1.0-4.8) k/uL Monocytes # 0.3 (0-1.0) k/uL Eosinophils # 0.1 (0-0.7) k/uL Basophils # 0.0 (0-0.2) k/uL PT 10.9 (9.0-12.0) sec INR 1.0 (<1.2) APTT 23.9 (22.0-30.0) sec Sodium 132 L (137-145) mmol/L Potassium 4.9 (3.5-5.1) mmol/L Chloride 103 (98-107) mmol/L Carbon Dioxide 14 L (22-30) mmol/L Anion Gap 15 mmol/L BUN 63 H (7-17) mg/dL Creatinine 2.78 H (0.52-1.04) mg/dL Est GFR (CKD-EPI)AfAm 19 (>60 ml/min/1.73 sqM) Est GFR (CKD-EPI)NonAf 16 (>60 ml/min/1.73 sqM) Glucose 171 H (74-99) mg/dL Plasma Lactic Acid Jeffry (0.7-2.0) mmol/L Calcium 9.6 (8.4-10.2) mg/dL Total Bilirubin 1.0 (0.2-1.3) mg/dL AST 133 H (14-36) U/L ALT 39 H (4-34) U/L Alkaline Phosphatase 292 H (38-126) U/L Creatine Kinase 5092 H* (30-135) U/L Total Protein 6.5 (6.3-8.2) g/dL Albumin 3.4 L (3.5-5.0) g/dL Coronavirus (PCR) (Not Detectd) 08/27/21 08/27/21 Range/Units 19:00 19:05 WBC (3.8-10.6) k/uL RBC (3.80-5.40) m/uL Hgb (11.4-16.0) gm/dL Hct (34.0-46.0) % MCV (80.0-100.0) fL MCH (25.0-35.0) pg MCHC (31.0-37.0) g/dL RDW (11.5-15.5) % Plt Count (150-450) k/uL MPV Neutrophils % % Lymphocytes % % Monocytes % % Eosinophils % % Basophils % % Neutrophils # (1.3-7.7) k/uL Lymphocytes # (1.0-4.8) k/uL Monocytes # (0-1.0) k/uL Eosinophils # (0-0.7) k/uL Basophils # (0-0.2) k/uL PT (9.0-12.0) sec INR (<1.2) APTT (22.0-30.0) sec Sodium (137-145) mmol/L Potassium (3.5-5.1) mmol/L Chloride (98-107) mmol/L Carbon Dioxide (22-30) mmol/L Anion Gap mmol/L BUN (7-17) mg/dL Creatinine (0.52-1.04) mg/dL Est GFR (CKD-EPI)AfAm (>60 ml/min/1.73 sqM) Est GFR (CKD-EPI)NonAf (>60 ml/min/1.73 sqM) Glucose (74-99) mg/dL Plasma Lactic Acid Jeffry 2.0 (0.7-2.0) mmol/L Calcium (8.4-10.2) mg/dL Total Bilirubin (0.2-1.3) mg/dL AST (14-36) U/L ALT (4-34) U/L Alkaline Phosphatase (38-126) U/L Creatine Kinase (30-135) U/L Total Protein (6.3-8.2) g/dL Albumin (3.5-5.0) g/dL Coronavirus (PCR) Not Detected (Not Detectd) Disposition Clinical Impression: Rhabdomyolysis, Acute renal failure, Urinary tract infection, Sepsis Disposition: ADMITTED IP TO THIS [facility] Referrals: Kamron Lee MD [Primary Care Provider] - 1-2 days Time of Disposition: 20:21
[2021-08-27 19:19] LABS: Basophils % (A) 0 %; Eosinophils # (A) 0.1 k/uL (0-0.7); Eosinophils % (A) 0 %; HGB 11.5 gm/dL (11.4-16.0); Lymphocytes # (A) 0.4 k/uL (1.0-4.8); Lymphocytes % (A) 2 %; MCH 28.9 pg (25.0-35.0); MCHC 32.1 g/dL (31.0-37.0); Mean Platelet Volume 8.2; Monocytes # (A) 0.3 k/uL (0-1.0); Monocytes % (A) 1 %; Neutrophils % (A) 97 %; Platelet Count 429 k/uL (150-450); RDW 14.1 % (11.5-15.5); WBC 28.9 k/uL (3.8-10.6)
[2021-08-27] MEDS: IBUPROFEN 600 MG TAB PO STA ×2 (19:19→19:41)
[2021-08-27] MEDS: SODIUM CHLORIDE 0.9% 500 ML 500 ML IV SCH ×3 (19:19→21:06)
[2021-08-27] MEDS: ACETAMINOPHEN TAB 500 MG TAB PO STA ×2 (19:19→19:43)
[2021-08-27] MEDS ORDERED: ACETAMINOPHEN SUPPOSITORY 650 MG SUPP RECTAL STA (19:26)
[2021-08-27 19:28] LABS: Albumin 3.4 g/dL (3.5-5.0); Calcium 9.6 mg/dL (8.4-10.2); Total Protein 6.5 g/dL (6.3-8.2)
[2021-08-27 19:31] LABS: Partial Thromboplastin Time 23.9 sec (22.0-30.0); Prothrombin Time 10.9 sec (9.0-12.0)
--- NOTE | 2021-08-27 19:40 | XR ---
EXAMINATION TYPE: XR chest 1V portable DATE OF EXAM: 08/27/2021 COMPARISON: 05/01/2019 HISTORY: Single view TECHNIQUE: FINDINGS: Heart is normal. Lungs are clear of infiltrate. There is no heart failure. There are no hilar masses. Bony thorax is intact. IMPRESSION: No active query pulmonary disease. No adverse change.
[2021-08-27 19:41] LABS: Potassium 4.9 mmol/L (3.5-5.1)
[2021-08-27] MEDS ORDERED: DEXTROSE 5% IN WATER 1,000 ML with SODIUM BICARB (1 MEQ/ML) 150 ML IV ONE (20:30)
[2021-08-27] MEDS ORDERED: SODIUM CHLORIDE 0.9% 1,000 ML IV ONE (20:31)
[2021-08-27] MEDS ORDERED: LEVOFLOXACIN 750MG-D5W PMX 750 MG in DEXTROSE/WATER 1 150ML.BAG IVPB STA (20:33)
[2021-08-27 20:39] LABS: Appearance,Urine Turbid (Clear); Bacteria,Urine Many /hpf; Bilirubin,Urine Negative (Negative); Blood,Urine Moderate (Negative); Budding Yeast,Urine Few /hpf; Color,Urine Yellow; Glucose,Urine (UA) Negative (Negative); Ketones,Urine Negative (Negative); Leukocyte Esterase,Urine Large (Negative); Nitrite,Urine Negative (Negative); PH, Urine 5.5 (5.0-8.0); Protein,Urine 2+ (Negative); RBC,Urine 98 /hpf (0-5); Specific Gravity,Urine 1.017 (1.001-1.035); Urobilinogen,Urine <2.0 mg/dL (<2.0); WBC,Urine >182 /hpf (0-5)
[2021-08-28 07:21] LABS: Basophils % (A) 0 %; Eosinophils % (A) 0 %; HCT 36.1 % (34.0-46.0); HGB 10.9 gm/dL (11.4-16.0); Hypochromasia Moderate; Lymphocytes # (A) 0.6 k/uL (1.0-4.8); Lymphocytes % (A) 2 %; MCH 28.2 pg (25.0-35.0); MCHC 30.2 g/dL (31.0-37.0); MCV 93.3 fL (80.0-100.0); Mean Platelet Volume 7.9; Monocytes # (A) 0.6 k/uL (0-1.0); Monocytes % (A) 2 %; Neutrophils # (A) 24.4 k/uL (1.3-7.7); Neutrophils % (A) 95 %; Platelet Count 316 k/uL (150-450); RBC 3.87 m/uL (3.80-5.40); RDW 13.6 % (11.5-15.5); WBC 25.7 k/uL (3.8-10.6)
[2021-08-28 07:53] LABS: ALT 49 U/L (4-34); AST 179 U/L (14-36); African American GFR (CKD) 19 (>60 ml/min/1.73 sqM); Albumin 2.4 g/dL (3.5-5.0); Albumin/Globulin Ratio 0.9; Alkaline Phosphatase 170 U/L (38-126); Anion Gap 10 mmol/L; Blood Urea Nitrogen 60 mg/dL (7-17); Calcium 8.3 mg/dL (8.4-10.2); Carbon Dioxide 17 mmol/L (22-30); Chloride 105 mmol/L (98-107); Globulin 2.7 g/dL; Glucose 100 mg/dL (74-99); Magnesium 1.4 mg/dL (1.6-2.3); Non-African American GFR(CKD) 17 (>60 ml/min/1.73 sqM); Potassium 3.8 mmol/L (3.5-5.1); Sodium 132 mmol/L (137-145); Total Bilirubin 0.6 mg/dL (0.2-1.3); Total Protein 5.1 g/dL (6.3-8.2)
[2021-08-28 08:13] LABS: Creatine Kinase 5378 U/L (30-135)
--- NOTE | 2021-08-28 08:58 | P.NPCON ---
History of Present Illness - Reason for Consult acute renal failure - History of Present Illness Reason for consultation: Acute kidney injury History of present illness: Patient is a 75-year-old female seen in consultation for acute kidney injury. Patient's creatinine in April 2019 was 0.76. This admission was 2.7 at and is 2.7 today. Patient presented to the hospital if she was found down by her f amily. Patient isn't sure if she fell or lost consciousness. She does not recall what exactly happened. Patient's CK level was elevated at 5092 on admission and is 5378 today. She received normal saline boluses on admission and is currently maintained on normal saline at 75 mL an hour. Denies chest pain or shortness of breath. Blood pressure stable. No fever or chills. She was taking triamterene and hydrochlorothiazide outpatient. Patient does take sulindac twice daily. Denies vomiting or diarrhea. I don't see a statin and her home medication list. She tested negative for coronavirus. UA suggestive of UTI. She is on antibiotics. Vital signs are stable. General: The patient appeared well nourished and normally developed. HEENT: Head exam is unremarkable. LUNGS: Breath sounds decreased. HEART: Rate and Rhythm are regular. ABDOMEN: Soft, no distention. EXTREMITITES: No edema. Past Medical History Past Medical History: Cancer, Hypertension Additional Past Medical History / Comment(s): Right breast lump-cancerous, Sepsis 03/2019 History of Any Multi-Drug Resistant Organisms: None Reported Past Surgical History: Breast Surgery, Cholecystectomy, Hysterectomy Additional Past Surgical History / Comment(s): right lumpectomy Past Anesthesia/Blood Transfusion Reactions: No Reported Reaction Past Psychological History: Depression Additional Psychological History / Comment(s): Patient takes Zoloft for depression Smoking Status: Never smoker Past Alcohol Use History: None Reported Past Drug Use History: None Reported - Past Family History Mother Family Medical History: Myocardial Infarction ([place]) Brother(s) Family Medical History: Cancer Additional Family Medical History / Comment(s): Lung Cancer- at age 47 Medications and Allergies Home Medications Medication Instructions Recorded Confirmed Type Fluticasone Nasal [place] [Flonase 1 spr EA NOSTRIL DAILY 04/09/19 08/27/21 History Nasal [place]] Gemfibrozil [Lopid] 600 mg PO BID 04/09/19 08/27/21 History Sulindac [Clinoril] 200 mg PO AC-BID 04/09/19 08/27/21 History Triamterene-Hctz 37.5-25Mg 1 cap PO DAILY 04/09/19 08/27/21 History [Dyazide 37.5-25 Capsule] traMADol HCL [Ultram] 50 mg PO Q6H PRN 04/09/19 08/27/21 History Clobetasol Propionate [Temovate 1 applic TOPICAL TUTH 08/27/21 08/27/21 History 0.05% Oint] Allergies Allergy/AdvReac Type Severity Reaction Status Date / Time adhesive tape Allergy Rash/Hives Verified 08/27/21 18:38 cephalexin [From Keflex] Allergy Rash/Hives Verified 08/27/21 18:38 sulfamethoxazole Allergy Rash/Hives Verified 08/27/21 18:38 [From Bactrim] trimethoprim [From Bactrim] Allergy Rash/Hives Verified 08/27/21 18:38 aspirin AdvReac Nausea & Verified 08/27/21 18:38 Vomiting & Diarrhea GLADYS MUSTARD Allergy Anaphylaxis Uncoded 08/27/21 18:38 Physical Exam Vitals: Vital Signs Temp Pulse Pulse Resp BP BP Pulse Ox 08/28/21 05:09 98.6 F 68 18 133/69 98 08/28/21 04:44 99.5 F 95 18 119/70 95 08/27/21 23:58 98.9 F 87 18 97/59 98 08/27/21 23:20 98.3 F 76 18 104/74 96 08/27/21 21:00 100.3 F H 94 18 108/58 96 08/27/21 20:00 89 18 136/71 94 L 08/27/21 18:32 102.3 F H 104 H 20 148/102 90 L Intake and Output 08/27/21 08/28/21 08/28/21 22:59 06:59 14:59 Intake Total 1575 Balance 1575 Intake: Intake, IV Titration 1575 Amount Dextrose 5% in Water 1, 1050 000 ml @ 150 mls/hr IV . Q7H40M KARLA with Sodium Bicarb (1 Meq/ml) 150 ml Rx#:[id number] Sodium Chloride 0.9% 1, 525 000 ml @ 75 mls/hr IV . [id number] ONE Rx#:[id number] Other: Voiding Method Bedside Commode Diaper # Voids 2 # Bowel Movements 1 Weight 63.503 kg Results - Lab Results Most recent lab results Calcium 8.3 mg/dL (8.4-10.2) L 08/28/21 06:16 Magnesium 1.4 mg/dL (1.6-2.3) L 08/28/21 06:16 08/28/21 06:16 08/28/21 06:16 Assessment and Plan Plan: Assessment: 1. Acute kidney injury secondary to ATN secondary to rhabdomyolysis, nonsteroidals and further worsened with the use of diuretics. Creatinine 2.78 on admission and is 2.7 today. Creatinine in April 2019 was 0.78. 2. Rhabdomyolysis secondary to fall and immobility. 3. Hypomagnesemia from poor intake. 4. Hyponatremia secondary to acute kidney injury. 5. Metabolic acidosis secondary to acute kidney injury. Plan: Stop normal saline. Start isotonic sodium bicarbonate drip to be run at 1 50 mL an hour. Repeat CK level in the morning. Check renal ultrasound. Replace magnesium. Continue to monitor renal function and urine output. Hold diuretics. Avoid nephrotoxins. Thank you for the consultation. I will continue to follow the patient with you during her hospital stay.
[2021-08-28] MEDS: DEXTROSE 5% IN WATER 1,000 ML with SODIUM BICARB (1 MEQ/ML) 150 ML IV SCH ×3 (09:20→22:06)
[2021-08-28] MEDS: MAGNESIUM SULFATE-D5W PMX 1 GM in DEXTROSE/WATER 1 100ML.BAG IVPB SCH ×2 (09:21→11:02)
--- NOTE | 2021-08-28 11:02 | US ---
EXAMINATION TYPE: US kidneys/renal and bladder DATE OF EXAM: 08/28/2021 COMPARISON: CT May 02, 2019 CLINICAL HISTORY: bianka. EXAM MEASUREMENTS: Right Kidney: 11.3 x 5.5 x 5.2 cm Left Kidney: 11.5 x 5.9 x 4.8 cm Right Kidney: Moderate to borderline severe hydro, minimal free fluid adjacent to kidney Left Kidney: Mild to moderate hydro, minimal free fluid adjacent to kidney Bladder: dependant debris Moderate bilateral hydronephrosis. No suspicious renal masses are identified. The urinary bladder i s satisfactorily distended. Dependent debris is present Bilateral ureteral jets are not seen. IMPRESSION: New moderate right greater than left hydronephrosis. Further workup advised.
[2021-08-28] MEDS ORDERED: traMADol 50 MG TAB PO PRN (12:09)
[2021-08-28] MEDS ORDERED: ACETAMINOPHEN TAB 325 MG TAB PO PRN (12:11)
[2021-08-28] MEDS ORDERED: MELATONIN 3 MG TABLET PO PRN (12:11)
[2021-08-28] MEDS ORDERED: LACTULOSE 20 GM/30 ML CUP PO PRN (12:11)
[2021-08-28] MEDS ORDERED: ONDANSETRON 4 MG/2 ML VIAL IVP PRN (12:11)
[2021-08-28] MEDS ORDERED: NALOXONE 0.4 MG/ML 1 ML VIAL IV PRN (12:11)
[2021-08-28] MEDS ORDERED: CALCIUM CARBONATE 500 MG CHEWABLE PO PRN (12:11)
[2021-08-28] MEDS: ENOXAPARIN 40 MG/0.4 ML SYRINGE SQ SCH (13:17)
--- NOTE | 2021-08-28 17:39 | P.HPIM ---
History of Present Illness H&P Date: 08/28/21 Chief Complaint: Decreased mentation History of presenting complaint: This is a very pleasant [address] Kamron Lee. Chronic stable medical conditions include hypertension, depression,. Patient was brought into the ER by family members because of decreased mentat ion. Patient has not herself able to give much of a history. Patient was found down by the family and they guarded back in a chair and thought she was fine. When the came back later she did seem altered nontender baseline. They did not know how long she was down for. Patient had a fever on arrival of 102. This morning patient is more awake. She remembers having fever. Cannot tell me more than that. No cough. Having urinary frequency. Does have a bowel movement every day. Patient getting IV fluids. Also started on IV Levaquin. No chest pain and palpitations. No pain. Review of systems: GEN.: Fever EYES: None HEENT: None NECK: None RESPIRATORY: None CARDIOVASCULAR: None GASTROINTESTINAL: None GENITOURINARY: Some urinary frequency MUSCULOSKELETAL: None LYMPHATICS: None HEMATOLOGICAL: None PSYCHIATRY: Bit forgetful NEUROLOGICAL: None Past medical history: skin cancer. Hypertension, depression Social history: Does not smoke. Alcohol occasional. Lives alone. Family history: Lung cancer, [place] Physical examination: VITAL SIGNS: 102.3, 104, 20, 148/or 2, 90% room air upon presentation GENERAL: Laying in bed, tired, able to answer simple questions EYES: Pupils equal. Conjunctiva normal. HEENT: External appearance of nose and ears normal, oral cavity dry mucous memb ranes NECK: JVD not raised; masses not palpable. HEART: First and second heart sounds are normal; no edema. LUNGS: Respiratory rate normal; clear to auscultation. ABDOMEN: Soft, nontender, liver spleen not palpable, no masses palpable. PSYCH: Tired but able to answer questions. MUSCULAR skeletal: Evidence of OA. NEUROLOGICAL: Cranial nerves grossly intact; no facial asymmetry, power and sensation grossly intact. INVESTIGATIONS, reviewed in the clinical context: August 28: White count 25.7 hemoglobin 10.9 platelets 316 sodium 132 potassium 3.8 BUN 60 creatinine 2.70 AST 179 ALT 49 CPK 5378 Admission labs: Bicarb 14 BUN 63 creatinine 2.78 CPK 5092 AST/ALT 133/39 UA positive for leukoesterase, WBC Coronavirus [PCR] called not detected EKG tracing personally reviewed by me-no sinus rhythm. Chest x-ray film personally reviewed by me-no obvious infiltrate Assessment and plan: -Acute UTI with sepsis IV Levaquin -Sepsis IV fluids. IV Levaquin -Acute metabolic encephalopathy and delirium from sepsis: Slowly improving -Primary osteoarthritis multiple joints bilateral Pain medications as needed -Hyperlipidemia Lopid 600 mg twice a day -Essential hypertension Hold off diuretics -Acute kidney injury, possible prerenal and ATN from sepsis IV fluids. Follow labs -Acute rhabdomyolysis secondary to fall IV fluids with bicarbonate -Acute metabolic acidosis from renal failure Bicarbonate drip -Hyponatremia from decreased oral intake IV fluids -Hypoalbuminemia, acute phase reactant Increase oral intake. IV Levaquin. Bicarbonate drip. Follow labs. Subcu Lovenox. Nephrology consultation. Given the complexity and severity of patient's condition expect the patient to be in the hospital at least for 2 overnights Past Medical History Past Medical History: Cancer, Hypertension Additional Past Medical History / Comment(s): Right breast lump-cancerous, Sepsis 03/2019 History of Any Multi-Drug Resistant Organisms: None Reported Past Surgical History: Breast Surgery, Cholecystectomy, Hysterectomy Additional Past Surgical History / Comment(s): right lumpectomy Past Anesthesia/Blood Transfusion Reactions: No Reported Reaction Past Psychological History: Depression Additional Psychological History / Comment(s): Patient takes Zoloft for depress ion Smoking Status: Never smoker Past Alcohol Use History: None Reported Past Drug Use History: None Reported - Past Family History Mother Family Medical History: Myocardial Infarction ([place]) Brother(s) Family Medical History: Cancer Additional Family Medical History / Comment(s): Lung Cancer- at age 47 Medications and Allergies Home Medications Medication Instructions Recorded Confirmed Type Fluticasone Nasal [place] [Flonase 1 spr EA NOSTRIL DAILY 04/09/19 08/27/21 History Nasal [place]] Gemfibrozil [Lopid] 600 mg PO BID 04/09/19 08/27/21 History Sulindac [Clinoril] 200 mg PO AC-BID 04/09/19 08/27/21 History Triamterene-Hctz 37.5-25Mg 1 cap PO DAILY 04/09/19 08/27/21 History [Dyazide 37.5-25 Capsule] traMADol HCL [Ultram] 50 mg PO Q6H PRN 04/09/19 08/27/21 History Clobetasol Propionate [Temovate 1 applic TOPICAL TUTH 08/27/21 08/27/21 History 0.05% Oint] Allergies Allergy/AdvReac Type Severity Reaction Status Date / Time adhesive tape Allergy Rash/Hives Verified 08/27/21 18:38 cephalexin [From Keflex] Allergy Rash/Hives Verified 08/27/21 18:38 sulfamethoxazole Allergy Rash/Hives Verified 08/27/21 18:38 [From Bactrim] trimethoprim [From Bactrim] Allergy Rash/Hives Verified 08/27/21 18:38 aspirin AdvReac Nausea & Verified 08/27/21 18:38 Vomiting & Diarrhea GLADYS MUSTARD Allergy Anaphylaxis Uncoded 08/27/21 18:38 Physical Exam Vitals: Vital Signs Temp Pulse Pulse Resp BP BP Pulse Ox 08/28/21 05:09 98.6 F 68 18 133/69 98 08/28/21 04:44 99.5 F 95 18 119/70 95 08/27/21 23:58 98.9 F 87 18 97/59 98 08/27/21 23:20 98.3 F 76 18 104/74 96 08/27/21 21:00 100.3 F H 94 18 108/58 96 08/27/21 20:00 89 18 136/71 94 L 08/27/21 18:32 102.3 F H 104 H 20 148/102 90 L Intake and Output 08/27/21 08/28/21 08/28/21 22:59 06:59 14:59 Intake Total 1575 Balance 1575 Intake: Intake, IV Titration 1575 Amount Dextrose 5% in Water 1, 1050 000 ml @ 150 mls/hr IV . Q7H40M KARLA with Sodium Bicarb (1 Meq/ml) 150 ml Rx#:[id number] Sodium Chloride 0.9% 1, 525 000 ml @ 75 mls/hr IV . [id number] ONE Rx#:[id number] Other: Voiding Method Diaper Incontinent # Voids 2 # Bowel Movements 1 Weight 63.503 kg Results CBC & Chem 7: 08/28/21 06:16 08/28/21 06:16 Labs: Abnormal Lab Results - Last 24 Hours (Table) 02/11/1208/27/21 08/27/21 Range/Units 19:00 19:00 19:10 WBC 28.9 H (3.8-10.6) k/uL Hgb (11.4-16.0) gm/dL MCHC (31.0-37.0) g/dL Neutrophils # 28.0 H (1.3-7.7) k/uL Lymphocytes # 0.4 L (1.0-4.8) k/uL Sodium 132 L (137-145) mmol/L Carbon Dioxide 14 L (22-30) mmol/L BUN 63 H (7-17) mg/dL Creatinine 2.78 H (0.52-1.04) mg/dL Glucose 171 H (74-99) mg/dL Calcium (8.4-10.2) mg/dL Magnesium (1.6-2.3) mg/dL AST 133 H (14-36) U/L ALT 39 H (4-34) U/L Alkaline Phosphatase 292 H (38-126) U/L Creatine Kinase 5092 H* (30-135) U/L Total Protein (6.3-8.2) g/dL Albumin 3.4 L (3.5-5.0) g/dL Urine Appearance Turbid H (Clear) Urine Protein 2+ H (Negative) Urine Blood Moderate H (Negative) Ur Leukocyte Esterase Large H (Negative) Urine RBC 98 H (0-5) /hpf Urine WBC >182 H (0-5) /hpf Urine WBC Clumps Many H (None) /hpf Urine Bacteria Many H (None) /hpf Urine Yeast (Budding) Few H (None) /hpf 08/28/21 08/28/21 Range/Units 06:16 06:16 WBC 25.7 H (3.8-10.6) k/uL Hgb 10.9 L (11.4-16.0) gm/dL MCHC 30.2 L (31.0-37.0) g/dL Neutrophils # 24.4 H (1.3-7.7) k/uL Lymphocytes # 0.6 L (1.0-4.8) k/uL Sodium 132 L (137-145) mmol/L Carbon Dioxide 17 L (22-30) mmol/L BUN 60 H (7-17) mg/dL Creatinine 2.70 H (0.52-1.04) mg/dL Glucose 100 H (74-99) mg/dL Calcium 8.3 L (8.4-10.2) mg/dL Magnesium 1.4 L (1.6-2.3) mg/dL AST 179 H (14-36) U/L ALT 49 H (4-34) U/L Alkaline Phosphatase 170 H (38-126) U/L Creatine Kinase 5378 H* (30-135) U/L Total Protein 5.1 L (6.3-8.2) g/dL Albumin 2.4 L (3.5-5.0) g/dL Urine Appearance (Clear) Urine Protein (Negative) Urine Blood (Negative) Ur Leukocyte Esterase (Negative) Urine RBC (0-5) /hpf Urine WBC (0-5) /hpf Urine WBC Clumps (None) /hpf Urine Bacteria (None) /hpf Urine Yeast (Budding) (None) /hpf Microbiology - Last 24 Hours (Table) 08/27/21 19:10 Blood Culture - Final Blood 08/27/21 19:10 Urine Culture - Preliminary Urine,Clean Catch Thrombosis Risk Factor Assmnt - Choose All That Apply Any of the Below Risk Factors Present?: Yes Other Risk Factors: Yes Each Risk Factor Represents 3 Points: Age 75 years or older Thrombosis Risk Factor Assessment Total Risk Factor Score: 3 Thrombosis Risk Factor Assessment Level: Moderate Risk
[2021-08-28] MEDS ORDERED: LEVOFLOXACIN 750MG-D5W PMX 750 MG in DEXTROSE/WATER 1 150ML.BAG IVPB SCH (21:00)
[2021-08-29 07:18] LABS: African American GFR (CKD) 16 (>60 ml/min/1.73 sqM); Anion Gap 6 mmol/L; Blood Urea Nitrogen 63 mg/dL (7-17); Calcium 8.1 mg/dL (8.4-10.2); Carbon Dioxide 29 mmol/L (22-30); Chloride 95 mmol/L (98-107); Glucose 115 mg/dL (74-99); Magnesium 2.3 mg/dL (1.6-2.3); Non-African American GFR(CKD) 14 (>60 ml/min/1.73 sqM); Potassium 3.6 mmol/L (3.5-5.1); Sodium 130 mmol/L (137-145)
[2021-08-29 07:35] LABS: Creatine Kinase 2741 U/L (30-135)
[2021-08-29] MEDS: DEXTROSE 5% IN WATER 1,000 ML with SODIUM BICARB (1 MEQ/ML) 150 ML IV SCH (08:45)
[2021-08-29] MEDS: FENOFIBRATE 160 MG TAB PO SCH (08:45)
[2021-08-29] MEDS: ENOXAPARIN 40 MG/0.4 ML SYRINGE SQ SCH (08:45)
--- NOTE | 2021-08-29 10:11 | P.PN ---
Subjective Patient is seen in follow-up for acute kidney injury. Renal function worse. Creatinine 3.2. CK levels trending down. Acidosis resolved. Currently on bicarb drip. Blood pressure stable. Has been voiding but is incontinent. Vital signs are stable. General: The patient appeared well nourished and normally developed. HEENT: Head exam is unremarkable. LUNGS: Lungs are clear to auscultation and percussion. Breath sounds decreased. HEART: Rate and Rhythm are regular. ABDOMEN: Soft, no distention. EXTREMITITES: No edema. Objective - Vital Signs Vital signs: Vital Signs Temp 98.8 F 08/29/21 04:44 Pulse 92 08/29/21 04:44 Resp 20 08/29/21 04:44 BP 110/65 08/29/21 04:44 Pulse Ox 97 08/29/21 04:44 Intake & Output 08/28/21 08/29/21 08/29/21 18:59 06:59 18:59 Intake Total 325 Balance 325 Intake: Oral 325 Other: Voiding Method Diaper Diaper Incontinent Incontinent # Voids 1 2 # Bowel Movements 1 0 - Labs CBC & Chem 7: 08/28/21 06:16 08/29/21 06:24 Labs: Abnormal Lab Results - Last 24 Hours (Table) 08/29/21 Range/Units 06:24 Sodium 130 L (137-145) mmol/L Chloride 95 L (98-107) mmol/L BUN 63 H (7-17) mg/dL Creatinine 3.20 H (0.52-1.04) mg/dL Glucose 115 H (74-99) mg/dL Calcium 8.1 L (8.4-10.2) mg/dL Creatine Kinase 2741 H* (30-135) U/L Microbiology - Last 24 Hours (Table) 08/27/21 19:10 Blood Culture Gram Stain - Preliminary Blood Blood Culture - Preliminary Escherichia coli 08/27/21 19:00 Blood Culture - Preliminary Blood No Growth after 24 hours 08/27/21 19:10 Blood Culture - Final Blood Assessment and Plan Plan: Assessment: 1. Acute kidney injury secondary to ATN secondary to rhabdomyolysis, nonsteroidals and further worsened with the use of diuretics. Also concern for obstructive uropathy as hydronephrosis is noted bilaterally ultrasound. Creatinine 2.78 on admission and is 3.2 today. Creatinine in April 2019 was 0.78. 2. Rhabdomyolysis secondary to fall and immobility. CK levels trending down. 3. Hypomagnesemia from poor intake. Replace. Better. 4. Hyponatremia secondary to acute kidney injury. 5. Metabolic acidosis secondary to acute kidney injury. Resolved. On bicarb drip. 6. E. coli bacteremia on antibiotics. Plan: Stop bicarb drip. Start normal saline at 75 mL an hour. Consult urology for the hydronephrosis. Continue to monitor renal function and urine output. Hold diuretics. Avoid nephrotoxins.
[2021-08-29] MEDS: SODIUM CHLORIDE 0.9% 1,000 ML IV SCH (12:02)
--- NOTE | 2021-08-29 15:49 | P.GSCN ---
History of Present Illness Consult date: 08/29/21 Reason for Consult: bilateral hydronephrosis History of present illness: This is a 75 yo female admitted with rhabdomyolysis, acute kidney injury and a UTI, urine culture growing gram-negative bacilli. Her creatinine is elevated at 3.25 from a baseline of 0.76, creatinine was from 2019. She underwent a ultrasound which showed evidence of bilateral hydronephrosis, with a moderately distended bladder and debris within the bladder. Patient is a poor historian, but denies any history of kidney stones, or previous history of gross hematuria. no previous surgeries. Review of Systems ROS unobtainable: due to mental status Past Medical History Past Medical History: Cancer, Hypertension Additional Past Medical History / Comment(s): Right breast lump-cancerous, Sepsis 03/2019 History of Any Multi-Drug Resistant Organisms: None Reported Past Surgical History: Breast Surgery, Cholecystectomy, Hysterectomy Additional Past Surgical History / Comment(s): right lumpectomy Past Anesthesia/Blood Transfusion Reactions: No Reported Reaction Past Psychological History: Depression Additional Psychological History / Comment(s): Patient takes Zoloft for depression Smoking Status: Never smoker Past Alcohol Use History: None Reported Past Drug Use History: None Reported - Past Family History Mother Family Medical History: Myocardial Infarction ([place]) Brother(s) Family Medical History: Cancer Additional Family Medical History / Comment(s): Lung Cancer- at age 47 Medications and Allergies Home Medications Medication Instructions Recorded Confirmed Type Fluticasone Nasal [place] [Flonase 1 spr EA NOSTRIL DAILY 04/09/19 08/27/21 History Nasal [place]] Gemfibrozil [Lopid] 600 mg PO BID 04/09/19 08/27/21 History Sulindac [Clinoril] 200 mg PO AC-BID 04/09/19 08/27/21 History Triamterene-Hctz 37.5-25Mg 1 cap PO DAILY 04/09/19 08/27/21 History [Dyazide 37.5-25 Capsule] traMADol HCL [Ultram] 50 mg PO Q6H PRN 04/09/19 08/27/21 History Clobetasol Propionate [Temovate 1 applic TOPICAL TUTH 08/27/21 08/27/21 History 0.05% Oint] Allergies Allergy/AdvReac Type Severity Reaction Status Date / Time adhesive tape Allergy Rash/Hives Verified 08/27/21 18:38 cephalexin [From Keflex] Allergy Rash/Hives Verified 08/27/21 18:38 sulfamethoxazole Allergy Rash/Hives Verified 08/27/21 18:38 [From Bactrim] trimethoprim [From Bactrim] Allergy Rash/Hives Verified 08/27/21 18:38 aspirin AdvReac Nausea & Verified 08/27/21 18:38 Vomiting & Diarrhea [facility] Allergy Anaphylaxis Uncoded 08/27/21 18:38 Surgical - Exam Vital Signs Temp Pulse Resp BP Pulse Ox 102.3 F H 104 H 20 148/102 90 L 08/27/21 18:32 08/27/21 18:32 08/27/21 18:32 08/27/21 18:32 08/27/21 18:32 - General no distress, no pain - Eyes normal ocular movement, no pale - ENT normal nares, normal mucosa - Respiratory normal expansion, normal respiratory effort - Abdomen Abdomen: soft, non tender Results - Labs 08/28/21 06:16 08/29/21 06:24 Abnormal Lab Results - Last 24 Hours (Table) 08/29/21 Range/Units 06:24 Sodium 130 L (137-145) mmol/L Chloride 95 L (98-107) mmol/L BUN 63 H (7-17) mg/dL Creatinine 3.20 H (0.52-1.04) mg/dL Glucose 115 H (74-99) mg/dL Calcium 8.1 L (8.4-10.2) mg/dL Creatine Kinase 2741 H* (30-135) U/L Microbiology - Last 24 Hours (Table) 08/27/21 19:10 Urine Culture - Preliminary Urine,Clean Catch Gram Neg Bacilli 08/27/21 19:10 Blood Culture Gram Stain - Preliminary Blood Blood Culture - Preliminary Escherichia coli 08/27/21 19:00 Blood Culture - Preliminary Blood No Growth after 24 hours Diabetes panel 08/29/21 Range/Units 06:24 Sodium 130 L (137-145) mmol/L Potassium 3.6 (3.5-5.1) mmol/L Chloride 95 L (98-107) mmol/L Carbon Dioxide 29 (22-30) mmol/L BUN 63 H (7-17) mg/dL Creatinine 3.20 H (0.52-1.04) mg/dL Glucose 115 H (74-99) mg/dL Calcium 8.1 L (8.4-10.2) mg/dL Calcium panel 08/29/21 Range/Units 06:24 Calcium 8.1 L (8.4-10.2) mg/dL Pituitary panel 08/29/21 Range/Units 06:24 Sodium 130 L (137-145) mmol/L Potassium 3.6 (3.5-5.1) mmol/L Chloride 95 L (98-107) mmol/L Carbon Dioxide 29 (22-30) mmol/L BUN 63 H (7-17) mg/dL Creatinine 3.20 H (0.52-1.04) mg/dL Glucose 115 H (74-99) mg/dL Calcium 8.1 L (8.4-10.2) mg/dL Adrenal panel 08/29/21 Range/Units 06:24 Sodium 130 L (137-145) mmol/L Potassium 3.6 (3.5-5.1) mmol/L Chloride 95 L (98-107) mmol/L Carbon Dioxide 29 (22-30) mmol/L BUN 63 H (7-17) mg/dL Creatinine 3.20 H (0.52-1.04) mg/dL Glucose 115 H (74-99) mg/dL Calcium 8.1 L (8.4-10.2) mg/dL Assessment and Plan Assessment: 75-year-old female admitted to the hospital with rhabdomyolysis and acute kidney injury. Ultrasound showed bilateral hydronephrosis, with a moderately distended bladder. Creatinine is 3.25 from a baseline of 0.76 and 2019. Her acute kidney injury small slightly multifactorial, her bladder distention is contributing to hydronephrosis. -Place Yoo catheter -We'll obtain a CT abdomen and pelvis
--- NOTE | 2021-08-29 17:08 | CT ---
EXAMINATION TYPE: CT renal stones wo con DATE OF EXAM: 08/29/2021 HISTORY: acute renal failure, UTI, left flank pain CT DLP: 274.9 mGycm. Automated Exposure Control for Dose Reduction was Utilized. TECHNIQUE: CT scan of the abdomen and pelvis is performed without oral or IV contrast. COMPARISON: CT chest abdomen and pelvis 05/02/2019 FINDINGS: Within the limitations of a non-contrast study, the following observations are made. LUNG BASES: Small right and trace left effusion with adjacent atelectasis. LIVER/GB: No significant abnormality is appreciated. Cholecystectomy. PANCREAS: No significant abnormality is seen. SPLEEN: No significant abnormality is seen. ADRENALS: No significant abnormality is seen. KIDNEYS: The bilateral kidneys appear enlarged compared to the prior CT from April 2019. The kidney measures approximately 10 cm in craniocaudal dimension, previously 9cm, the left kidney measures adeline roximately 12 cm craniocaudally, previously 10 cm beyond no hydronephrosis of either kidney. No urete ral or bladder stones. Yoo catheter in nondistended bladder. Bladder wall appears mildly thickened, however this may be se condary to underdistention. BOWEL: No significant abnormality is seen. Surgical lin in the region of the GENITAL ORGANS: No gross abnormality seen. LYMPH NODES: No greater than 1cm abdominal or pelvic lymph nodes are appreciated. OSSEOUS STRUCTURES: No significant abnormality is seen. Degenerative changes of the spine. OTHER: Diffuse haziness of the mesentery small amount of free fluid in the right paracolic gutter. IMPRESSION: 1. Enlarged and edematous appearing kidneys bilaterally. No hydronephrosis. No renal stones, uretera l or bladder stones. 2. Diffuse haziness of the mesentery small amount of free fluid in the right paracolic gutter. 3. Small right and trace left effusion with adjacent atelectasis.
--- NOTE | 2021-08-29 20:13 | P.PN ---
Progress Note - Text Progress Note Date: 08/29/21 Chief Complaint: Decreased mentation History of presenting complaint: This is a very pleasant [address] Kamron Lee. Chronic stable medical conditions include hypertension, depression,. Patient was brought into the ER by family members because of decreased m entation. Patient has not herself able to give much of a history. Patient was found down by the family and they guarded back in a chair and thought she was fine. When the came back later she did seem altered nontender baseline. They did not know how long she was down for. Patient had a fever on arrival of 102. This morning patient is more awake. She remembers having fever. Cannot tell me more than that. No cough. Having urinary frequency. Does have a bowel movement every day. Patient getting IV fluids. Also started on IV Levaquin. No chest pain and palpitations. No pain. Admitted with acute UTI with sepsis, encephalopathy with delirium, acute kidney injury from ATN and prerenal, metabolic acidosis, acute rhabdomyolysis. August 29: Getting IV fluids. More awake. Worsening renal function. Decreased appetite. Blood culture positive for E. coli. Repeat blood culture. Active Medications Acetaminophen (Acetaminophen Tab 325 Mg Tab) 650 mg PO Q6HR PRN PRN Reason: Mild Pain or Fever > 100.5 Calcium Carbonate/Glycine (Calcium Carbonate 500 Mg Chewable) 1,000 mg PO Q4HR PRN PRN Reason: Dyspepsia Clobetasol Propionate (Clobetasol Prop 0.05% Oint 15gm) 1 applic TOPICAL TUTH [facility]; Protocol Enoxaparin Sodium (Enoxaparin 30 Mg/0.3 Ml Syringe) 30 mg SQ DAILY [facility] Fenofibrate (Fenofibrate 160 Mg Tab) 160 mg PO DAILY [facility] Last Admin: 08/29/21 08:45 Dose: 160 mg Documented by: Sodium Chloride (Saline 0.9%) 1,000 mls @ 75 mls/hr IV .[id number] [facility] Last Admin: 08/29/21 12:02 Dose: 75 mls/hr Documented by: Levofloxacin 500 mg/ IV (Solution) 100 mls @ 100 mls/hr IVPB Q48H [facility] Lactulose (Lactulose 20 Gm/30 Ml Cup) 20 gm PO DAILY PRN PRN Reason: Constipation Melatonin (Melatonin 3 Mg Tablet) 3 mg PO HS PRN PRN Reason: Insomnia Naloxone HCl (Naloxone 0.4 Mg/Ml 1 Ml Vial) 0.2 mg IV Q2M PRN PRN Reason: Opioid Reversal Ondansetron HCl (Ondansetron 4 Mg/2 Ml Vial) 4 mg IVP Q8HR PRN PRN Reason: Nausea And Vomiting Tramadol HCl (Tramadol 50 Mg Tab) 50 mg PO Q6H PRN PRN Reason: Pain Past medical history: skin cancer. Hypertension, depression Social history: Does not smoke. Alcohol occasional. Lives alone. Family history: Lung cancer, [place] Physical examination: VITAL SIGNS: 98.1, 78, 18, 137/76, 97% room air GENERAL: Laying in bed, awake EYES: Pupils equal. Conjunctiva normal. HEENT: External appearance of nose and ears normal, oral cavity normal NECK: JVD not raised; masses not palpable. HEART: First and second heart sounds are normal; no edema. LUNGS: Respiratory rate normal; clear to auscultation. ABDOMEN: Soft, nontender, liver spleen not palpable, no masses palpable. PSYCH: Answering questions appropriately MUSCULAR skeletal: Evidence of OA. NEUROLOGICAL: Cranial nerves grossly intact; no facial asymmetry, power and sensation grossly intact. INVESTIGATIONS, reviewed in the clinical context: August 29: Sodium 1:30 potassium 3.6 BUN 63 creatinine 3.20 CPK 2741 August 28: White count 25.7 hemoglobin 10.9 platelets 316 sodium 132 potassium 3.8 BUN 60 creatinine 2.70 AST 179 ALT 49 CPK 5378 Admission labs: Bicarb 14 BUN 63 creatinine 2.78 CPK 5092 AST/ALT 133/39 UA positive for leukoesterase, WBC Coronavirus [PCR] called not detected EKG tracing personally reviewed by me-no sinus rhythm. Chest x-ray film personally reviewed by me-no obvious infiltrate Assessment and plan: -Acute UTI with sepsis, from gram-negative bacilli IV Levaquin -Sepsis with blood culture positive for E. coli IV fluids. IV Levaquin -Acute metabolic encephalopathy and delirium from sepsis: Improved -Primary osteoarthritis multiple joints bilateral Pain medications as needed -Hyperlipidemia Lopid 600 mg twice a day -Essential hypertension Hold off diuretics -Acute kidney injury, possible prerenal and ATN from sepsis: Worsening IV fluids. Follow labs -Acute rhabdomyolysis secondary to fall: Slow to respond IV fluids -Acute metabolic acidosis from renal failure: Better Bicarbonate drip discontinued -Hyponatremia from decreased oral intake: Slow to respond IV fluids -Hypoalbuminemia, acute phase reactant And just IV Levaquin dose. IV fluids. Repeat labs. Repeat blood cultures.
[2021-08-30] MEDS: SODIUM CHLORIDE 0.9% 1,000 ML IV SCH ×2 (02:49→13:20)
[2021-08-30 07:32] LABS: Basophils % (A) 0 %; Eosinophils # (A) 0.1 k/uL (0-0.7); Eosinophils % (A) 0 %; HCT 34.4 % (34.0-46.0); HGB 11.2 gm/dL (11.4-16.0); Lymphocytes # (A) 0.4 k/uL (1.0-4.8); Lymphocytes % (A) 3 %; MCH 28.8 pg (25.0-35.0); MCHC 32.5 g/dL (31.0-37.0); MCV 88.7 fL (80.0-100.0); Mean Platelet Volume 7.9; Monocytes # (A) 0.4 k/uL (0-1.0); Monocytes % (A) 3 %; Neutrophils # (A) 13.1 k/uL (1.3-7.7); Neutrophils % (A) 93 %; Platelet Count 343 k/uL (150-450); RBC 3.87 m/uL (3.80-5.40); RDW 13.4 % (11.5-15.5); WBC 14.1 k/uL (3.8-10.6)
[2021-08-30 07:48] LABS: African American GFR (CKD) 25 (>60 ml/min/1.73 sqM); Anion Gap 4 mmol/L; Blood Urea Nitrogen 44 mg/dL (7-17); Calcium 8.4 mg/dL (8.4-10.2); Carbon Dioxide 31 mmol/L (22-30); Chloride 101 mmol/L (98-107); Glucose 92 mg/dL (74-99); Non-African American GFR(CKD) 22 (>60 ml/min/1.73 sqM); Sodium 136 mmol/L (137-145)
[2021-08-30] MEDS: FENOFIBRATE 160 MG TAB PO SCH (09:30)
[2021-08-30] MEDS: ENOXAPARIN 30 MG/0.3 ML SYRINGE SQ SCH (09:30)
[2021-08-30] MEDS ORDERED: POTASSIUM CHLORIDE ER 20 MEQ TAB.ER PO STA (11:50)
--- NOTE | 2021-08-30 13:56 | P.PN ---
Subjective Progress Note Date: 08/30/21 The patient was seen yesterday by Dr. Arevalo. SHe was inretention. Her cr has come down to 2.1 with a catheter. Her renal ct scan was no remarkable urologically We khoa follow. Objective - Vital Signs Vital signs: Vital Signs Temp 97.9 F 08/30/21 12:53 Pulse 89 08/30/21 12:53 Resp 17 08/30/21 12:53 BP 132/84 08/30/21 12:53 Pulse Ox 95 08/30/21 12:53 Intake & Output 08/29/21 08/30/21 08/30/21 18:59 06:59 18:59 Intake Total 2045 500 Output Total 1000 2500 800 Balance 1045 -2000 -800 Intake: Intake, IV Titration 1425 Amount Dextrose 5% in Water 1, 900 000 ml @ 150 mls/hr IV . Q7H40M [facility] with Sodium Bicarb (1 Meq/ml) 150 ml Rx#:[id number] Sodium Chloride 0.9% 1, 525 000 ml @ 75 mls/hr IV . [id number] [facility] Rx#:[id number] Oral 620 500 Output: Urine 1000 2500 800 Other: Voiding Method Toilet Toilet # Voids 5 # Bowel Movements 4 1 1 - Labs CBC & Chem 7: 08/30/21 07:03 08/30/21 07:03 Labs: Abnormal Lab Results - Last 24 Hours (Table) 08/30/21 08/30/21 Range/Units 07:03 07:03 WBC 14.1 H (3.8-10.6) k/uL Hgb 11.2 L (11.4-16.0) gm/dL Neutrophils # 13.1 H (1.3-7.7) k/uL Lymphocytes # 0.4 L (1.0-4.8) k/uL Sodium 136 L (137-145) mmol/L Potassium 3.0 L (3.5-5.1) mmol/L Carbon Dioxide 31 H (22-30) mmol/L BUN 44 H (7-17) mg/dL Creatinine 2.18 H (0.52-1.04) mg/dL Microbiology - Last 24 Hours (Table) 08/27/21 19:10 Blood Culture Gram Stain - Final Blood Blood Culture - Final Escherichia coli 08/27/21 19:10 Urine Culture - Final Urine,Clean Catch Escherichia coli 08/27/21 19:00 Blood Culture - Preliminary Blood No Growth after 48 hours
--- NOTE | 2021-08-30 14:36 | P.PN ---
Subjective Principal diagnosis: Patient is seen for follow-up for acute kidney injury. Renal function has improved. Patient is maintained on IV fluids. She also had obstructive uropathy with bilateral hydronephrosis and currently has an Yoo catheter. Creatinine is down to 2.1 from 3.2. Objective - Vital Signs Vital signs: Vital Signs Temp 97.9 F 08/30/21 12:53 Pulse 89 08/30/21 12:53 Resp 17 08/30/21 12:53 BP 132/84 08/30/21 12:53 Pulse Ox 95 08/30/21 12:53 Intake & Output 08/29/21 08/30/21 08/30/21 18:59 06:59 18:59 Intake Total 2045 500 Output Total 1000 2500 800 Balance 1045 -2000 -800 Intake: Intake, IV Titration 1425 Amount Dextrose 5% in Water 1, 900 000 ml @ 150 mls/hr IV . Q7H40M [facility] with Sodium Bicarb (1 Meq/ml) 150 ml Rx#:[id number] Sodium Chloride 0.9% 1, 525 000 ml @ 75 mls/hr IV . [id number] [facility] Rx#:[id number] Oral 620 500 Output: Urine 1000 2500 800 Other: Voiding Method Toilet Toilet # Voids 5 # Bowel Movements 4 1 1 - Exam Patient is awake comfortable not in any acute distress. Examination of the heart S1 and S2 Examination lungs bilateral breath sounds are heard Abdomen is soft nontender Examination lower extremity shows no evidence of edema. FICTION WRITER exam grossly intact - Labs CBC & Chem 7: 08/30/21 07:03 08/30/21 07:03 Labs: Abnormal Lab Results - Last 24 Hours (Table) 08/30/21 08/30/21 Range/Units 07:03 07:03 WBC 14.1 H (3.8-10.6) k/uL Hgb 11.2 L (11.4-16.0) gm/dL Neutrophils # 13.1 H (1.3-7.7) k/uL Lymphocytes # 0.4 L (1.0-4.8) k/uL Sodium 136 L (137-145) mmol/L Potassium 3.0 L (3.5-5.1) mmol/L Carbon Dioxide 31 H (22-30) mmol/L BUN 44 H (7-17) mg/dL Creatinine 2.18 H (0.52-1.04) mg/dL Microbiology - Last 24 Hours (Table) 08/27/21 19:10 Blood Culture Gram Stain - Final Blood Blood Culture - Final Escherichia coli 08/27/21 19:10 Urine Culture - Final Urine,Clean Catch Escherichia coli 08/27/21 19:00 Blood Culture - Preliminary Blood No Growth after 48 hours Assessment and Plan Assessment: 1. Acute kidney injury associated with rhabdo my lysis, ATN and nonsteroidal anti-inflammatory agents. Patient also has obstructive uropathy with bilateral hydronephrosis and bladder distention currently with Yoo catheter with improving renal function. 2. Rhabdo my lysis secondary to fall and immobility, CK levels are trending down 3. Hypomagnesemia from decreased intake status post replacement. 4. Hyponatremia associated with acute kidney injury and hypovolemia currently improved 5. Metabolic acidosis associated with acute kidney injury status post bicarb drip 6. E. coli bacteremia maintained on antibiotics. Plan: Continue with Yoo catheter Encourage increased oral intake Continue to avoid NSAIDs Follow-up as outpatient with nephrology and urology. Replace potassium Repeat labs in a.m.
--- NOTE | 2021-08-30 17:21 | P.PN ---
Progress Note - Text Progress Note Date: 08/30/21 Chief Complaint: Decreased mentation History of presenting complaint: This is a very pleasant [address] Kamron Lee. Chronic stable medical conditions include hypertension, depression,. Patient was brought into the ER by family members because of decreased m entation. Patient has not herself able to give much of a history. Patient was found down by the family and they guarded back in a chair and thought she was fine. When the came back later she did seem altered nontender baseline. They did not know how long she was down for. Patient had a fever on arrival of 102. This morning patient is more awake. She remembers having fever. Cannot tell me more than that. No cough. Having urinary frequency. Does have a bowel movement every day. Patient getting IV fluids. Also started on IV Levaquin. No chest pain and palpitations. No pain. Admitted with acute UTI with sepsis, encephalopathy with delirium, acute kidney injury from ATN and prerenal, metabolic acidosis, acute rhabdomyolysis. August 29: Getting IV fluids. More awake. Worsening renal function. Decreased appetite. Blood culture positive for E. coli. Repeat blood culture. Active Medications Acetaminophen (Acetaminophen Tab 325 Mg Tab) 650 mg PO Q6HR PRN PRN Reason: Mild Pain or Fever > 100.5 Calcium Carbonate/Glycine (Calcium Carbonate 500 Mg Chewable) 1,000 mg PO Q4HR PRN PRN Reason: Dyspepsia Clobetasol Propionate (Clobetasol Prop 0.05% Oint 15gm) 1 applic TOPICAL TUTH [facility]; Protocol Enoxaparin Sodium (Enoxaparin 30 Mg/0.3 Ml Syringe) 30 mg SQ DAILY [facility] Fenofibrate (Fenofibrate 160 Mg Tab) 160 mg PO DAILY [facility] Last Admin: 08/29/21 08:45 Dose: 160 mg Documented by: Sodium Chloride (Saline 0.9%) 1,000 mls @ 75 mls/hr IV .[id number] [facility] Last Admin: 08/29/21 12:02 Dose: 75 mls/hr Documented by: Levofloxacin 500 mg/ IV (Solution) 100 mls @ 100 mls/hr IVPB Q48H [facility] Lactulose (Lactulose 20 Gm/30 Ml Cup) 20 gm PO DAILY PRN PRN Reason: Constipation Melatonin (Melatonin 3 Mg Tablet) 3 mg PO HS PRN PRN Reason: Insomnia Naloxone HCl (Naloxone 0.4 Mg/Ml 1 Ml Vial) 0.2 mg IV Q2M PRN PRN Reason: Opioid Reversal Ondansetron HCl (Ondansetron 4 Mg/2 Ml Vial) 4 mg IVP Q8HR PRN PRN Reason: Nausea And Vomiting Tramadol HCl (Tramadol 50 Mg Tab) 50 mg PO Q6H PRN PRN Reason: Pain Past medical history: skin cancer. Hypertension, depression Social history: Does not smoke. Alcohol occasional. Lives alone. Family history: Lung cancer, [place] Physical examination: VITAL SIGNS: 98.1, 78, 18, 137/76, 97% room air GENERAL: Laying in bed, awake EYES: Pupils equal. Conjunctiva normal. HEENT: External appearance of nose and ears normal, oral cavity normal NECK: JVD not raised; masses not palpable. HEART: First and second heart sounds are normal; no edema. LUNGS: Respiratory rate normal; clear to auscultation. ABDOMEN: Soft, nontender, liver spleen not palpable, no masses palpable. PSYCH: Answering questions appropriately MUSCULAR skeletal: Evidence of OA. NEUROLOGICAL: Cranial nerves grossly intact; no facial asymmetry, power and sensation grossly intact. INVESTIGATIONS, reviewed in the clinical context: August 29: Sodium 1:30 potassium 3.6 BUN 63 creatinine 3.20 CPK 2741 August 28: White count 25.7 hemoglobin 10.9 platelets 316 sodium 132 potassium 3.8 BUN 60 creatinine 2.70 AST 179 ALT 49 CPK 5378 Admission labs: Bicarb 14 BUN 63 creatinine 2.78 CPK 5092 AST/ALT 133/39 UA positive for leukoesterase, WBC Coronavirus [PCR] called not detected EKG tracing personally reviewed by me-no sinus rhythm. Chest x-ray film personally reviewed by me-no obvious infiltrate Assessment and plan: -Acute UTI with sepsis, from gram-negative bacilli IV Levaquin -Sepsis with blood culture positive for E. coli IV fluids. IV Levaquin -Acute metabolic encephalopathy and delirium from sepsis: Improved -Primary osteoarthritis multiple joints bilateral Pain medications as needed -Hyperlipidemia Lopid 600 mg twice a day -Essential hypertension Hold off diuretics -Acute kidney injury, possible prerenal and ATN from sepsis: Worsening IV fluids. Follow labs -Acute rhabdomyolysis secondary to fall: Slow to respond IV fluids -Acute metabolic acidosis from renal failure: Better Bicarbonate drip discontinued -Hyponatremia from decreased oral intake: Slow to respond IV fluids -Hypoalbuminemia, acute phase reactant And just IV Levaquin dose. IV fluids. Repeat labs. Repeat blood cultures.
--- NOTE | 2021-08-30 17:27 | P.PN ---
Progress Note - Text Progress Note Date: 08/30/21 Chief Complaint: Decreased mentation History of presenting complaint: This is a very pleasant [address] Kamron Lee. Chronic stable medical conditions include hypertension, depression,. Patient was brought into the ER by family members because of decreased m entation. Patient has not herself able to give much of a history. Patient was found down by the family and they guarded back in a chair and thought she was fine. When the came back later she did seem altered nontender baseline. They did not know how long she was down for. Patient had a fever on arrival of 102. This morning patient is more awake. She remembers having fever. Cannot tell me more than that. No cough. Having urinary frequency. Does have a bowel movement every day. Patient getting IV fluids. Also started on IV Levaquin. No chest pain and palpitations. No pain. Admitted with acute UTI with sepsis, encephalopathy with delirium, acute kidney injury from ATN and prerenal, metabolic acidosis, acute rhabdomyolysis. August 29: Getting IV fluids. More awake. Worsening renal function. Decreased appetite. Blood culture positive for E. coli. Repeat blood culture. August 30: Feeling better. Appetite better. Improvement in renal function. No fever.Getting IV Levaquin. IV fluids. Active Medications Acetaminophen (Acetaminophen Tab 325 Mg Tab) 650 mg PO Q6HR PRN PRN Reason: Mild Pain or Fever > 100.5 Last Admin: 08/29/21 20:10 Dose: 650 mg Documented by: Calcium Carbonate/Glycine (Calcium Carbonate 500 Mg Chewable) 1,000 mg PO Q4HR PRN PRN Reason: Dyspepsia Clobetasol Propionate (Clobetasol Prop 0.05% Oint 15gm) 1 applic TOPICAL [facility]; Protocol Enoxaparin Sodium (Enoxaparin 30 Mg/0.3 Ml Syringe) 30 mg SQ DAILY [facility] Last Admin: 08/30/21 09:30 Dose: 30 mg Documented by: Fenofibrate (Fenofibrate 160 Mg Tab) 160 mg PO DAILY [facility] Last Admin: 08/30/21 09:30 Dose: 160 mg Documented by: Sodium Chloride (Saline 0.9%) 1,000 mls @ 75 mls/hr IV .[id number] [facility] Last Admin: 08/30/21 13:20 Dose: 75 mls/hr Documented by: Levofloxacin 500 mg/ IV (Solution) 100 mls @ 100 mls/hr IVPB Q48H [facility] Lactulose (Lactulose 20 Gm/30 Ml Cup) 20 gm PO DAILY PRN PRN Reason: Constipation Melatonin (Melatonin 3 Mg Tablet) 3 mg PO HS PRN PRN Reason: Insomnia Naloxone HCl (Naloxone 0.4 Mg/Ml 1 Ml Vial) 0.2 mg IV Q2M PRN PRN Reason: Opioid Reversal Ondansetron HCl (Ondansetron 4 Mg/2 Ml Vial) 4 mg IVP Q8HR PRN PRN Reason: Nausea And Vomiting Tramadol HCl (Tramadol 50 Mg Tab) 50 mg PO Q6H PRN PRN Reason: Pain Past medical history: skin cancer. Hypertension, depression Social history: Does not smoke. Alcohol occasional. Lives alone. Family history: Lung cancer, [place] Physical examination: VITAL SIGNS: Afebrile, 89, 17, 132/84, 95% room air GENERAL: Laying in bed, awake EYES: Pupils equal. Conjunctiva normal. HEENT: External appearance of nose and ears normal, oral cavity normal NECK: JVD not raised; masses not palpable. HEART: First and second heart sounds are normal; no edema. LUNGS: Respiratory rate normal; clear to auscultation. ABDOMEN: Soft, nontender, liver spleen not palpable, no masses palpable. PSYCH: Answering questions appropriately MUSCULAR skeletal: Evidence of OA. NEUROLOGICAL: Cranial nerves grossly intact; no facial asymmetry, power and sensation grossly intact. INVESTIGATIONS, reviewed in the clinical context: August 30: White count 14.1 hemoglobin 11.2 sodium 136 potassium 3 BUN 44 creatinine 2.18 August 29: Sodium 1:30 potassium 3.6 BUN 63 creatinine 3.20 CPK 2741 August 28: White count 25.7 hemoglobin 10.9 platelets 316 sodium 132 potassium 3.8 BUN 60 creatinine 2.70 AST 179 ALT 49 CPK 5378 Admission labs: Bicarb 14 BUN 63 creatinine 2.78 CPK 5092 AST/ALT 133/39 UA positive for leukoesterase, WBC Coronavirus [PCR] called not detected EKG tracing personally reviewed by me-no sinus rhythm. Chest x-ray film personally reviewed by me-no obvious infiltrate Assessment and plan: -Acute UTI with sepsis, from gram-negative bacilli: Improving IV Levaquin -Sepsis with blood culture positive for E. coli: Improving IV fluids. IV Levaquin -Acute metabolic encephalopathy and delirium from sepsis: Improved -Primary osteoarthritis multiple joints bilateral Pain medications as needed -Hyperlipidemia Lopid 600 mg twice a day -Essential hypertension Hold off diuretics -Acute kidney injury, possible prerenal and ATN from sepsis: Slow to improve IV fluids. Follow labs -Acute rhabdomyolysis secondary to fall: Slow to respond IV fluids -Acute metabolic acidosis from renal failure: Better Bicarbonate drip discontinued -Hyponatremia from decreased oral intake: Better IV fluids -Hypoalbuminemia, acute phase reactant IV Levaquin dose. IV fluids. Repeat labs. Including CPK. His cousin patient. Increase activity.
[2021-08-30] MEDS ORDERED: LEVOFLOXACIN 500MG-D5W PMX 500 MG in DEXTROSE/WATER 1 100ML.BAG IVPB SCH (21:00)
[2021-08-31] MEDS: SODIUM CHLORIDE 0.9% 1,000 ML IV SCH ×2 (06:24→18:18)
[2021-08-31 08:53] LABS: African American GFR (CKD) 38 (>60 ml/min/1.73 sqM); Anion Gap 3 mmol/L; Blood Urea Nitrogen 28 mg/dL (7-17); Calcium 8.3 mg/dL (8.4-10.2); Carbon Dioxide 29 mmol/L (22-30); Chloride 104 mmol/L (98-107); Creatine Kinase 602 U/L (30-135); Glucose 82 mg/dL (74-99); Non-African American GFR(CKD) 33 (>60 ml/min/1.73 sqM); Potassium 3.2 mmol/L (3.5-5.1); Sodium 136 mmol/L (137-145)
[2021-08-31] MEDS ORDERED: POTASSIUM CHLORIDE ER 20 MEQ TAB.ER PO STA (09:07)
[2021-08-31] MEDS: FENOFIBRATE 160 MG TAB PO SCH (09:52)
[2021-08-31] MEDS: CLOBETASOL PROP 0.05% OINT 15GM TOPICAL SCH (09:52)
[2021-08-31] MEDS: ENOXAPARIN 30 MG/0.3 ML SYRINGE SQ SCH (09:53)
--- NOTE | 2021-08-31 16:11 | P.PN ---
Subjective Principal diagnosis: Patient is seen for follow-up for acute kidney injury. Renal function has improved. Patient is maintained on IV fluids. She also had obstructive uropathy with bilateral hydronephrosis and currently has an Yoo catheter. Creatinine is down to 1.5 from 3.2. Objective - Vital Signs Vital signs: Vital Signs Temp 98.0 F 08/31/21 11:31 Pulse 82 08/31/21 11:31 Resp 18 08/31/21 11:31 BP 115/79 08/31/21 11:31 Pulse Ox 94 L 08/31/21 08:12 Intake & Output 08/30/21 08/31/21 08/31/21 18:59 06:59 18:59 Intake Total 1080 150 Output Total 1800 1900 700 Balance -720 -1900 -550 Intake: Oral 1080 150 Output: Urine 1800 1900 700 Straight 1800 1900 700 Other: Voiding Method Toilet Toilet # Bowel Movements 1 3 1 - Exam Patient is awake comfortable not in any acute distress. Examination of the heart S1 and S2 Examination lungs bilateral breath sounds are heard Abdomen is soft nontender Examination lower extremity shows no evidence of edema. [employer] exam grossly intact - Labs CBC & Chem 7: 08/30/21 07:03 08/31/21 06:06 Labs: Abnormal Lab Results - Last 24 Hours (Table) 08/31/21 Range/Units 06:06 Sodium 136 L (137-145) mmol/L Potassium 3.2 L (3.5-5.1) mmol/L BUN 28 H (7-17) mg/dL Creatinine 1.55 H (0.52-1.04) mg/dL Calcium 8.3 L (8.4-10.2) mg/dL Creatine Kinase 602 H (30-135) U/L Microbiology - Last 24 Hours (Table) 08/29/21 20:24 Blood Culture - Preliminary Blood No Growth after 24 hours 08/27/21 19:00 Blood Culture - Preliminary Blood No Growth after 72 hours 08/27/21 19:10 Blood Culture Gram Stain - Final Blood Blood Culture - Final Escherichia coli Assessment and Plan Assessment: 1. Acute kidney injury associated with rhabdomyolysis, ATN and nonsteroidal anti-inflammatory agents. Patient also has obstructive uropathy with bilateral hydronephrosis and bladder distention currently with Yoo catheter with improving renal function. 2. Rhabdomyolysis secondary to fall and immobility, CK levels are trending down 3. Hypomagnesemia from decreased intake status post replacement. 4. Hyponatremia associated with acute kidney injury and hypovolemia currently improved 5. Metabolic acidosis associated with acute kidney injury status post bicarb drip 6. E. coli bacteremia maintained on antibiotics. Plan: Continue with Yoo catheter Encourage increased oral intake Continue to avoid NSAIDs Follow-up as outpatient with nephrology and urology. Replace potassium Repeat labs in a.m.
--- NOTE | 2021-08-31 21:34 | P.PN ---
Progress Note - Text Progress Note Date: 08/31/21 Chief Complaint: Decreased mentation History of presenting complaint: This is a very pleasant [address] Kamron Lee. Chronic stable medical conditions include hypertension, depression,. Patient was brought into the ER by family members because of decreased m entation. Patient has not herself able to give much of a history. Patient was found down by the family and they guarded back in a chair and thought she was fine. When the came back later she did seem altered nontender baseline. They did not know how long she was down for. Patient had a fever on arrival of 102. This morning patient is more awake. She remembers having fever. Cannot tell me more than that. No cough. Having urinary frequency. Does have a bowel movement every day. Patient getting IV fluids. Also started on IV Levaquin. No chest pain and palpitations. No pain. Admitted with acute UTI with sepsis, encephalopathy with delirium, acute kidney injury from ATN and prerenal, metabolic acidosis, acute rhabdomyolysis. August 29: Getting IV fluids. More awake. Worsening renal function. Decreased appetite. Blood culture positive for E. coli. Repeat blood culture. August 30: Feeling better. Appetite better. Improvement in renal function. No fever.Getting IV Levaquin. IV fluids. August 31: Up in a chair. Feeling better. Renal function improving. Getting antibiotics and IV fluids. Active Medications Acetaminophen (Acetaminophen Tab 325 Mg Tab) 650 mg PO Q6HR PRN PRN Reason: Mild Pain or Fever > 100.5 Last Admin: 08/29/21 20:10 Dose: 650 mg Documented by: Calcium Carbonate/Glycine (Calcium Carbonate 500 Mg Chewable) 1,000 mg PO Q4HR PRN PRN Reason: Dyspepsia Clobetasol Propionate (Clobetasol Prop 0.05% Oint 15gm) 1 applic TOPICAL [facility]; Protocol Last Admin: 08/31/21 09:52 Dose: 1 applic Documented by: Enoxaparin Sodium (Enoxaparin 30 Mg/0.3 Ml Syringe) 30 mg SQ DAILY [facility] Last Admin: 08/31/21 09:53 Dose: 30 mg Documented by: Fenofibrate (Fenofibrate 160 Mg Tab) 160 mg PO DAILY [facility] Last Admin: 08/31/21 09:52 Dose: 160 mg Documented by: Sodium Chloride (Saline 0.9%) 1,000 mls @ 75 mls/hr IV .[id number] [facility] Last Admin: 08/31/21 18:18 Dose: Not Given Documented by: Lactulose (Lactulose 20 Gm/30 Ml Cup) 20 gm PO DAILY PRN PRN Reason: Constipation Levofloxacin (Levofloxacin 500 Mg Tab) 500 mg PO Q48H [facility] Melatonin (Melatonin 3 Mg Tablet) 3 mg PO HS PRN PRN Reason: Insomnia Naloxone HCl (Naloxone 0.4 Mg/Ml 1 Ml Vial) 0.2 mg IV Q2M PRN PRN Reason: Opioid Reversal Ondansetron HCl (Ondansetron 4 Mg/2 Ml Vial) 4 mg IVP Q8HR PRN PRN Reason: Nausea And Vomiting Tramadol HCl (Tramadol 50 Mg Tab) 50 mg PO Q6H PRN PRN Reason: Pain Past medical history: skin cancer. Hypertension, depression Social history: Does not smoke. Alcohol occasional. Lives alone. Family history: Lung cancer, [place] Physical examination: VITAL SIGNS: 98, 82, 18, 115/79, 9 4% room air GENERAL: Up in a chair comfortable EYES: Pupils equal. Conjunctiva normal. HEENT: External appearance of nose and ears normal, oral cavity normal NECK: JVD not raised; masses not palpable. HEART: First and second heart sounds are normal; no edema. LUNGS: Respiratory rate normal; clear to auscultation. ABDOMEN: Soft, nontender, liver spleen not palpable, no masses palpable. PSYCH: Answering questions appropriately MUSCULAR skeletal: Evidence of OA. NEUROLOGICAL: Cranial nerves grossly intact; no facial asymmetry, power and sensation grossly intact. INVESTIGATIONS, reviewed in the clinical context: August 31: Sodium 136 potassium 3.2 BUN 28 creatinine 1.55 CPK 602 August 30: White count 14.1 hemoglobin 11.2 sodium 136 potassium 3 BUN 44 creatinine 2.18 August 29: Sodium 1:30 potassium 3.6 BUN 63 creatinine 3.20 CPK 2741 August 28: White count 25.7 hemoglobin 10.9 platelets 316 sodium 132 potassium 3.8 BUN 60 creatinine 2.70 AST 179 ALT 49 CPK 5378 Admission labs: Bicarb 14 BUN 63 creatinine 2.78 CPK 5092 AST/ALT 133/39 UA positive for leukoesterase, WBC Coronavirus [PCR] called not detected EKG tracing personally reviewed by me-no sinus rhythm. Chest x-ray film personally reviewed by me-no obvious infiltrate Assessment and plan: -Acute UTI with sepsis, from E. coli: Improving IV Levaquin -Sepsis with blood culture positive for E. coli: Improving IV fluids. IV Levaquin -Acute metabolic encephalopathy and delirium from sepsis: Improved -Primary osteoarthritis multiple joints bilateral Pain medications as needed -Hyperlipidemia Lopid 600 mg twice a day -Essential hypertension Hold off diuretics -Acute kidney injury, possible prerenal and ATN from sepsis: Improving IV fluids. Follow labs -Acute rhabdomyolysis secondary to fall: Better IV fluids -Acute metabolic acidosis from renal failure: Better Bicarbonate drip discontinued -Hyponatremia from decreased oral intake: Better IV fluids -Hypoalbuminemia, acute phase reactant IV Levaquin dose. IV fluids. Repeat labs. Discussed with patient. Hopefully home tomorrow.
[2021-09-01 07:09] LABS: African American GFR (CKD) 45 (>60 ml/min/1.73 sqM); Anion Gap 3 mmol/L; Blood Urea Nitrogen 22 mg/dL (7-17); Calcium 8.2 mg/dL (8.4-10.2); Carbon Dioxide 27 mmol/L (22-30); Chloride 105 mmol/L (98-107); Glucose 96 mg/dL (74-99); Non-African American GFR(CKD) 39 (>60 ml/min/1.73 sqM); Potassium 3.4 mmol/L (3.5-5.1); Sodium 135 mmol/L (137-145)
[2021-09-01] MEDS: ENOXAPARIN 30 MG/0.3 ML SYRINGE SQ SCH (08:59)
[2021-09-01] MEDS: FENOFIBRATE 160 MG TAB PO SCH (08:59)
--- NOTE | 2021-09-01 10:37 | P.PN ---
Subjective Progress Note Date: 09/01/21 The patient is in the hospital with acute renal failure which is resolving. Bilateral hydronephrosis due to incomplete bladder emptying and a urine infection. She is feeling much better. Her creatinine is down into the mid 1 range. Her urine is clear. I did discuss with her her preoperative voiding p attern and it sounds as if she may have had problems emptying her bladder for some time. She does admit to chronic incontinence. She's never seen a urologist. We'll try her catheter out and placed on timed and double voiding. We'll check a residual after she voids. Objective - Vital Signs Vital signs: Vital Signs Temp 98.1 F 09/01/21 08:40 Pulse 67 09/01/21 08:40 Resp 16 09/01/21 08:40 BP 135/84 09/01/21 08:40 Pulse Ox 95 09/01/21 08:40 Intake & Output 08/31/21 09/01/21 09/01/21 18:59 06:59 18:59 Intake Total 1230 2070 Output Total 1800 3500 Balance -570 -1430 Intake: Intake, IV Titration 450 Amount Sodium Chloride 0.9% 1, 450 000 ml @ 75 mls/hr IV . [id number] [facility] Rx#:[id number] Oral 1230 1620 Output: Urine 1800 3500 Straight 700 1200 Other: Voiding Method Indwelling Catheter Indwelling Catheter # Bowel Movements 1 - Labs CBC & Chem 7: 08/30/21 07:03 09/01/21 06:20 Labs: Abnormal Lab Results - Last 24 Hours (Table) 09/01/21 Range/Units 06:20 Sodium 135 L (137-145) mmol/L Potassium 3.4 L (3.5-5.1) mmol/L BUN 22 H (7-17) mg/dL Creatinine 1.34 H (0.52-1.04) mg/dL Calcium 8.2 L (8.4-10.2) mg/dL Microbiology - Last 24 Hours (Table) 08/29/21 20:24 Blood Culture - Preliminary Blood No Growth after 48 hours 08/27/21 19:00 Blood Culture - Preliminary Blood No Growth after 96 hours
[2021-09-01] MEDS: SODIUM CHLORIDE 0.9% 1,000 ML IV SCH ×2 (11:00→19:13)
[2021-09-01] MEDS ORDERED: POTASSIUM CHLORIDE ER 20 MEQ TAB.ER PO STA (11:00)
--- NOTE | 2021-09-01 15:54 | P.PN ---
Subjective Principal diagnosis: Patient is seen for follow-up for acute kidney injury. Renal function has improved. Patient is maintained on IV fluids. She also had obstructive uropathy with bilateral hydronephrosis and currently has an Yoo catheter. Creatinine is down to 1.34 from 3.2. Objective - Vital Signs Vital signs: Vital Signs Temp 97.8 F 09/01/21 12:30 Pulse 82 09/01/21 12:30 Resp 18 09/01/21 12:30 BP 120/82 09/01/21 12:30 Pulse Ox 98 09/01/21 12:30 Intake & Output 08/31/21 09/01/21 09/01/21 18:59 06:59 18:59 Intake Total 1230 2070 Output Total 1800 3500 1550 Balance -570 -1430 -1550 Intake: Intake, IV Titration 450 Amount Sodium Chloride 0.9% 1, 450 000 ml @ 75 mls/hr IV . [id number] [facility] Rx#:[id number] Oral 1230 1620 Output: Urine 1800 3500 1550 Straight 700 1200 1175 Other: Voiding Method Indwelling Catheter Indwelling Catheter # Bowel Movements 1 - Exam Patient is awake comfortable not in any acute distress. Examination of the heart S1 and S2 Examination lungs bilateral breath sounds are heard Abdomen is soft nontender Examination lower extremity shows no evidence of edema. 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 Acute kidney injury associated with rhabdomyolysis, ATN and nonsteroidal anti-inflammatory agents. Patient also has obstructive uropathy with bilateral hydronephrosis and bladder distention currently with Yoo catheter with improving renal function. 2. Rhabdomyolysis secondary to fall and immobility, CK levels are trending down 3. Hypomagnesemia from decreased intake status post replacement. 4. Hyponatremia associated with acute kidney injury and hypovolemia currently improved 5. Metabolic acidosis associated with acute kidney injury status post bicarb drip 6. E. coli bacteremia maintained on antibiotics. Plan: Continue with Yoo catheter Encourage increased oral intake Continue to avoid NSAIDs Follow-up as outpatient with nephrology and urology. Replace potassium
[2021-09-01 20:19] VITALS: RESP 16
--- NOTE | 2021-09-01 20:57 | P.PN ---
Progress Note - Text Progress Note Date: 09/01/21 Chief Complaint: Decreased mentation History of presenting complaint: This is a very pleasant [address] Kamron Lee. Chronic stable medical conditions include hypertension, depression,. Patient was brought into the ER by family members because of decreased m entation. Patient has not herself able to give much of a history. Patient was found down by the family and they guarded back in a chair and thought she was fine. When the came back later she did seem altered nontender baseline. They did not know how long she was down for. Patient had a fever on arrival of 102. This morning patient is more awake. She remembers having fever. Cannot tell me more than that. No cough. Having urinary frequency. Does have a bowel movement every day. Patient getting IV fluids. Also started on IV Levaquin. No chest pain and palpitations. No pain. Admitted with acute UTI with sepsis, encephalopathy with delirium, acute kidney injury from ATN and prerenal, metabolic acidosis, acute rhabdomyolysis. August 29: Getting IV fluids. More awake. Worsening renal function. Decreased appetite. Blood culture positive for E. coli. Repeat blood culture. August 30: Feeling better. Appetite better. Improvement in renal function. No fever.Getting IV Levaquin. IV fluids. August 31: Up in a chair. Feeling better. Renal function improving. Getting antibiotics and IV fluids. September 01: Up in a chair. Continues to feel better. Oral intake fair. IV fluids. Discussed with the patient. Active Medications Acetaminophen (Acetaminophen Tab 325 Mg Tab) 650 mg PO Q6HR PRN PRN Reason: Mild Pain or Fever > 100.5 Last Admin: 08/29/21 20:10 Dose: 650 mg Documented by: Calcium Carbonate/Glycine (Calcium Carbonate 500 Mg Chewable) 1,000 mg PO Q4HR PRN PRN Reason: Dyspepsia Clobetasol Propionate (Clobetasol Prop 0.05% Oint 15gm) 1 applic TOPICAL [facility]; Protocol Last Admin: 08/31/21 09:52 Dose: 1 applic Documented by: Enoxaparin Sodium (Enoxaparin 40 Mg/0.4 Ml Syringe) 40 mg SQ DAILY [facility] Fenofibrate (Fenofibrate 160 Mg Tab) 160 mg PO DAILY [facility] Last Admin: 09/01/21 08:59 Dose: 160 mg Documented by: Sodium Chloride (Saline 0.9%) 1,000 mls @ 75 mls/hr IV .[id number] [facility] Last Admin: 09/01/21 19:13 Dose: 75 mls/hr Documented by: Lactulose (Lactulose 20 Gm/30 Ml Cup) 20 gm PO DAILY PRN PRN Reason: Constipation Levofloxacin (Levofloxacin 500 Mg Tab) 500 mg PO Q48H [facility] Last Admin: 09/01/21 20:22 Dose: 500 mg Documented by: Melatonin (Melatonin 3 Mg Tablet) 3 mg PO HS PRN PRN Reason: Insomnia Naloxone HCl (Naloxone 0.4 Mg/Ml 1 Ml Vial) 0.2 mg IV Q2M PRN PRN Reason: Opioid Reversal Ondansetron HCl (Ondansetron 4 Mg/2 Ml Vial) 4 mg IVP Q8HR PRN PRN Reason: Nausea And Vomiting Tramadol HCl (Tramadol 50 Mg Tab) 50 mg PO Q6H PRN PRN Reason: Pain Past medical history: skin cancer. Hypertension, depression Social history: Does not smoke. Alcohol occasional. Lives alone. Family history: Lung cancer, [place] Physical examination: VITAL SIGNS: 97.8, 82, 18, 120/82, 98% room air GENERAL: Up in a chair comfortable EYES: Pupils equal. Conjunctiva normal. HEENT: External appearance of nose and ears normal, oral cavity normal NECK: JVD not raised; masses not palpable. HEART: First and second heart sounds are normal; no edema. LUNGS: Respiratory rate normal; clear to auscultation. ABDOMEN: Soft, nontender, liver spleen not palpable, no masses palpable. PSYCH: Answering questions appropriately MUSCULAR skeletal: Evidence of OA. NEUROLOGICAL: Cranial nerves grossly intact; no facial asymmetry, power and sensation grossly intact. INVESTIGATIONS, reviewed in the clinical context: September 01: Potassium 3.4 BUN 22 creatinine 1.34 August 31: Sodium 136 potassium 3.2 BUN 28 creatinine 1.55 CPK 602 August 30: White count 14.1 hemoglobin 11.2 sodium 136 potassium 3 BUN 44 creatinine 2.18 August 29: Sodium 1:30 potassium 3.6 BUN 63 creatinine 3.20 CPK 2741 August 28: White count 25.7 hemoglobin 10.9 platelets 316 sodium 132 potassium 3.8 BUN 60 creatinine 2.70 AST 179 ALT 49 CPK 5378 Admission labs: Bicarb 14 BUN 63 creatinine 2.78 CPK 5092 AST/ALT 133/39 UA positive for leukoesterase, WBC Coronavirus [PCR] called not detected EKG tracing personally reviewed by me-no sinus rhythm. Chest x-ray film personally reviewed by me-no obvious infiltrate Assessment and plan: -Acute UTI with sepsis, from E. coli: Improving IV Levaquin -Sepsis with blood culture positive for E. coli: Improving IV fluids. IV Levaquin -Acute metabolic encephalopathy and delirium from sepsis: Improved -Primary osteoarthritis multiple joints bilateral Pain medications as needed -Hyperlipidemia Lopid 600 mg twice a day -Essential hypertension Hold off diuretics -Acute kidney injury, possible prerenal and ATN from sepsis: Improving IV fluids. Follow labs -Acute rhabdomyolysis secondary to fall: Better IV fluids -Acute metabolic acidosis from renal failure: Better Bicarbonate drip discontinued -Hyponatremia from decreased oral intake: Better IV fluids -Hypoalbuminemia, acute phase reactant IV Levaquin IV fluids. Follow labs. Discussed with patient. Oral doing much better.
[2021-09-01] MEDS ORDERED: LEVOFLOXACIN 500 MG TAB PO SCH (21:00)
[2021-09-02 04:10] VITALS: PULSE 77
--- NOTE | 2021-09-02 07:46 | P.PN ---
Subjective Progress Note Date: 09/02/21 The patient was in the hospital UTI sepsis, acute renal failure. Both of these have resolved. The patient had bilateral hydronephrosis due to incomplete bladder emptying. The catheters removed yesterday and she seems to be voiding much better. Her residual is not significant. From a urologic Standpoint she can be discharged home. She is on timed and double voiding. I would like to see her in the office in a couple of weeks to recheck her urine and urine residual. Objective - Vital Signs Vital signs: Vital Signs Temp 97.9 F 09/02/21 07:21 Pulse 77 09/02/21 07:21 Resp 16 09/02/21 07:21 BP 149/81 09/02/21 07:21 Pulse Ox 99 09/02/21 07:21 Intake & Output 09/01/21 09/02/21 09/02/21 18:59 06:59 18:59 Intake Total 1500 Output Total 1550 Balance -1550 1500 Intake: Intake, IV Titration 900 Amount Sodium Chloride 0.9% 1, 900 000 ml @ 75 mls/hr IV . [id number] [facility] Rx#:[id number] Oral 600 Output: Urine 1550 Straight 1175 Other: Voiding Method Indwelling Catheter Indwelling Catheter # Voids 4 3 - Labs CBC & Chem 7: 08/30/21 07:03 09/01/21 06:20 Labs: Microbiology - Last 24 Hours (Table) 08/29/21 20:24 Blood Culture - Preliminary Blood No Growth after 72 hours 08/27/21 19:00 Blood Culture - Preliminary Blood No Growth after 120 hours
[2021-09-02 07:53] LABS: African American GFR (CKD) 48 (>60 ml/min/1.73 sqM); Anion Gap 4 mmol/L; Blood Urea Nitrogen 25 mg/dL (7-17); Calcium 8.7 mg/dL (8.4-10.2); Carbon Dioxide 23 mmol/L (22-30); Chloride 110 mmol/L (98-107); Glucose 98 mg/dL (74-99); Non-African American GFR(CKD) 41 (>60 ml/min/1.73 sqM); Potassium 4.3 mmol/L (3.5-5.1); Sodium 137 mmol/L (137-145)
[2021-09-02] MEDS ORDERED: ENOXAPARIN 40 MG/0.4 ML SYRINGE SQ SCH (09:00)
[2021-09-02] MEDS: FENOFIBRATE 160 MG TAB PO SCH (09:58)
[2021-09-02] MEDS: CLOBETASOL PROP 0.05% OINT 15GM TOPICAL SCH (09:59)
[2021-09-02 10:10] VITALS: BMI 22.6
[2021-09-02] MEDS: SODIUM CHLORIDE 0.9% 1,000 ML IV SCH (11:19)
--- NOTE | 2021-09-02 12:28 | P.PN ---
Subjective Principal diagnosis: Patient is seen for follow-up for acute kidney injury. Renal function has improved. Patient is maintained on IV fluids. She also had obstructive uropathy with bilateral hydronephrosis and currently has an Yoo catheter. Creatinine is down to 1.27 from 3.2. Objective - Vital Signs Vital signs: Vital Signs Temp 97.9 F 09/02/21 07:21 Pulse 77 09/02/21 11:02 Resp 16 09/02/21 11:02 BP 149/81 09/02/21 07:21 Pulse Ox 97 09/02/21 07:58 Intake & Output 09/01/21 09/02/21 09/02/21 18:59 06:59 18:59 Intake Total 1500 Output Total 1550 Balance -1550 1500 Weight 63.503 kg Intake: Intake, IV Titration 900 Amount Sodium Chloride 0.9% 1, 900 000 ml @ 75 mls/hr IV . [id number] KARLA Rx#:[id number] Oral 600 Output: Urine 1550 Straight 1175 Other: Voiding Method Indwelling Catheter Indwelling Catheter Toilet # Voids 4 3 - Exam Patient is awake comfortable not in any acute distress. Appears euvolemic INTERNATIONAL ACCOUNT MANAGER exam grossly intact - Labs CBC & Chem 7: 08/30/21 07:03 09/02/21 07:10 Labs: Abnormal Lab Results - Last 24 Hours (Table) 09/02/21 Range/Units 07:10 Chloride 110 H (98-107) mmol/L BUN 25 H (7-17) mg/dL Creatinine 1.27 H (0.52-1.04) mg/dL Microbiology - Last 24 Hours (Table) 08/29/21 20:24 Blood Culture - Preliminary Blood No Growth after 72 hours 08/27/21 19:00 Blood Culture - Preliminary Blood No Growth after 120 hours Assessment and Plan Assessment: 1. Acute kidney injury associated with rhabdomyolysis, ATN and nonsteroidal anti-inflammatory agents. Patient also has obstructive uropathy with bilateral hydronephrosis and bladder distention currently with Yoo catheter with improving renal function. 2. Rhabdomyolysis secondary to fall and immobility, CK levels are trending down 3. Hypomagnesemia from decreased intake status post replacement. 4. Hyponatremia associated with acute kidney injury and hypovolemia currently improved 5. Metabolic acidosis associated with acute kidney injury status post bicarb drip 6. E. coli bacteremia maintained on antibiotics. Plan: Continue with Yoo catheter Encourage increased oral intake Continue to avoid NSAIDs Follow-up as outpatient with nephrology and urology. Okay for discharge from nephrology standpoint
[2021-09-02 12:54] VITALS: BP 152/66; TEMP 98.4
--- NOTE | 2021-09-02 23:54 | P.DS ---
Providers Date of admission: 08/27/21 20:31 Expected date of discharge: 09/02/21 Attending physician: Vlad Suggs Consults: 08/27/21 20:31 Consult Physician Urgent Consulting Provider: Srinivasa Cyr Consult Reason/Comments: Rhabdomyolysis, acute renal failure Do you want consulting provider notified?: Yes 08/29/21 10:06 Consult Physician Routine Consulting Provider: El Arevalo Consult Reason/Comments: hydronephrosis Do you want consulting provider notified?: Yes Primary care physician: Kamron [facility] Course: Chief Complaint: Decreased mentation History of presenting complaint: This is a very pleasant [address] Kamron Lee. Chronic stable medical conditions include hypertension, depression,. Patient was brought into the ER by family members because of decreased mentation. Patient has not herself able to give much of a history. Patient was found down by the family and they guarded back in a chair and thought she was fine. When the came back later she did seem altered nontender baseline. They did not know how long she was down for. Patient had a fever on arrival of 102. This morning patient is more awake. She remembers having fever. Cannot tell me more than that. No cough. Having urinary frequency. Does have a bowel movement every day. Patient getting IV fluids. Also started on IV Levaquin. No chest pain and palpitations. No pain. Admitted with acute UTI with sepsis, encephalopathy with delirium, acute kidney injury from ATN and prerenal, metabolic acidosis, acute rhabdomyolysis. Blood cultures are positive for E. coli. Patient responded well to fluids. Kidney function Improving. Received IV Levaquin. September 02: Creatinine dropped on for admission 3.20 down to 1.27. CPK impr mandie. Care was discussed with the patient. Will follow with urology outpatient. Questions answered. Patient had and large kidneys on those renal CT. He'll follow up outpatient with urology. Discussion and discharge planning more than 35 minutes Past medical history: skin cancer. Hypertension, depression Social history: Does not smoke. Alcohol occasional. Lives alone. Family history: Lung cancer, [place] Physical examination: VITAL SIGNS: 98.4, 77, 16, 152.66, 98% room air GENERAL: Up in a chair comfortable EYES: Pupils equal. Conjunctiva normal. HEENT: External appearance of nose and ears normal, oral cavity normal NECK: JVD not raised; masses not palpable. HEART: First and second heart sounds are normal; no edema. LUNGS: Respiratory rate normal; clear to auscultation. ABDOMEN: Soft, nontender, liver spleen not palpable, no masses palpable. PSYCH: Answering questions appropriately MUSCULAR skeletal: Evidence of OA. NEUROLOGICAL: Cranial nerves grossly intact; no facial asymmetry, power and sensation grossly intact. INVESTIGATIONS, reviewed in the clinical context: September 02: Potassium 4.3 creatinine 1.[address]: Large edema disappearing kidneys bilaterally. August 28: White count 25.7 hemoglobin 10.9 platelets 316 sodium 132 potassium 3.8 BUN 60 creatinine 2.70 AST 179 ALT 49 CPK 5378 Admission labs: Bicarb 14 BUN 63 creatinine 2.78 CPK 5092 AST/ALT 133/39 UA positive for leukoesterase, WBC Coronavirus [PCR] called not detected EKG tracing personally reviewed by me-no sinus rhythm. Chest x-ray film personally reviewed by me-no obvious infiltrate Assessment and plan: -Acute UTI with sepsis, from E. coli: Improving IV Levaquin. 10 days of Levaquin for home -Sepsis with blood culture positive for E. coli: Improving IV fluids. IV Levaquin -Acute metabolic encephalopathy and delirium from sepsis: Improved -Primary osteoarthritis multiple joints bilateral Pain medications as needed -Hyperlipidemia Lopid 600 mg twice a day -Essential hypertension Hold off diuretics -Acute kidney injury, possible prerenal and ATN from sepsis: Improving IV fluids. Follow labs -Acute rhabdomyolysis secondary to fall: Better IV fluids -Acute metabolic acidosis from renal failure: Better Bicarbonate drip discontinued -Hyponatremia from decreased oral intake: Better IV fluids -Hypoalbuminemia, acute phase reactant Disposition: Home Plan - Discharge Summary New Discharge Prescriptions: New Levofloxacin [Levaquin] 500 mg PO Q48H #10 tab Continue traMADol HCL [Ultram] 50 mg PO Q6H PRN PRN Reason: Pain Gemfibrozil [Lopid] 600 mg PO BID Clobetasol Propionate [Temovate 0.05% Oint] 1 applic TOPICAL TUTH Discontinued Fluticasone Nasal Ironside [Flonase Nasal Ironside] 1 spr EA NOSTRIL DAILY Triamterene-Hctz 37.5-25Mg [Dyazide 37.5-25 Capsule] 1 cap PO DAILY Sulindac [Clinoril] 200 mg PO AC-BID Discharge Medication List Gemfibrozil [Lopid] 600 mg PO BID 04/09/19 [History] traMADol HCL [Ultram] 50 mg PO Q6H PRN 04/09/19 [History] Clobetasol Propionate [Temovate 0.05% Oint] 1 applic TOPICAL TUTH 08/27/21 [History] Levofloxacin [Levaquin] 500 mg PO Q48H #10 tab 09/02/21 [Rx] Follow up Appointment(s)/Referral(s): Estrella Collier MD [STAFF PHYSICIAN] - 09/23/21 11:20 am ( will see patient will be seen in the [place]) Kamron Lee MD [Primary Care Provider] - 09/09/21 2:30 pm Jose M Buckley MD [STAFF PHYSICIAN] - 09/14/21 10:40 am Patient Instructions/Handouts: Acute Kidney Injury (DC), Urinary Tract Infection in Women (ED) Discharge Disposition: HOME SELF-CARE
[2021-09-03] MEDS ORDERED: LEVOFLOXACIN 750 MG TAB PO SCH (21:00)
== END 2021-09-02 14:40 | disposition home or self-care (01) | DRG 871 ==
LOC: EC 18:28 → 5NMEDONC 20:31
PROVIDERS: ADMIT Hospitalist; ATTEND Hospitalist
DX: A41.51 Sepsis due to Escherichia coli [E. coli] (principal); G93.41 Metabolic encephalopathy; N17.0 Acute kidney failure with tubular necrosis; E87.1 Hypo-osmolality and hyponatremia; E87.2 Acidosis; F05 Delirium due to known physiological condition; M62.82 Rhabdomyolysis; N13.6 Pyonephrosis; E78.5 Hyperlipidemia, unspecified; E83.42 Hypomagnesemia; E86.1 Hypovolemia; E88.09 Other disorders of plasma-protein metabolism, not elsewhere classified; F32.A Depression, unspecified; G47.00 Insomnia, unspecified; I10 Essential (primary) hypertension; K59.00 Constipation, unspecified; Z20.822 Contact with and (suspected) exposure to COVID-19; M19.91 Primary osteoarthritis, unspecified site; N32.89 Other specified disorders of bladder; R32 Unspecified urinary incontinence; W19.XXXA Unspecified fall, initial encounter; Z79.899 Other long term (current) drug therapy; Z80.1 Family history of malignant neoplasm of trachea, bronchus and lung; Z82.49 Family history of ischemic heart disease and other diseases of the circulatory system; Z85.828 Personal history of other malignant neoplasm of skin; Z90.710 Acquired absence of both cervix and uterus; Z88.1 Allergy status to other antibiotic agents; Z88.2 Allergy status to sulfonamides; Z88.8 Allergy status to other drugs, medicaments and biological substances
CPT/HCPCS: 36415; 71045; 74150; 76770; 80048; 80053; 81001; 82550; 83605; 83735; 85025; 85610; 85730; 87040; 87077; 87086; 87186; 87324; 87635; 93005; 94760; 96365; 99285

== ENCOUNTER 2023-03-12 12:22 | Inpatient (IN) | payer MEDICARE ==
[2023-03-12] MEDS ORDERED: ONDANSETRON 4 MG/2 ML VIAL IVP STA (12:55)
[2023-03-12] MEDS ORDERED: SODIUM CHLORIDE 0.9% 500 ML 500 ML IV STA (12:55)
[2023-03-12] MEDS ORDERED: SODIUM CHLORIDE 0.9% 1,000 ML IV STA (12:55)
[2023-03-12] MEDS ORDERED: FAMOTIDINE 20 MG/2 ML VIAL IV STA (12:56)
--- NOTE | 2023-03-12 13:02 | ED ---
General Adult HPI - General Chief complaint: Nausea/Vomiting/Diarrhea Stated complaint: Dehydration, V/D Time Seen by Provider: 03/12/23 12:42 Source: patient, RN notes reviewed Mode of arrival: wheelchair Limitations: no limitations - History of Present Illness Initial comments: Patient is a pleasant 77-year-old female presenting to the emergency department with concerns for dehydration. Patient was rescanned doxycycline for leg infection. Leg infection has resolved. Patient states she believes the medicine is up-to-date her stomach. Decreased oral intake over the past week. Patient has had 3 episodes of vomiting the last couple of days and still has some nausea. No significant abdominal pain. No fever. - Related Data Home Medications Medication Instructions Recorded Confirmed gemfibroziL [Lopid] 600 mg PO BID 04/09/19 08/27/21 traMADol HCL [Ultram] 50 mg PO Q6H PRN 04/09/19 08/27/21 Clobetasol Propionate [Temovate 1 applic TOPICAL TUTH 08/27/21 08/27/21 0.05% Oint] Previous Rx's Medication Instructions Recorded Levofloxacin [Levaquin] 500 mg PO Q48H #10 tab 09/02/21 Allergies Allergy/AdvReac Type Severity Reaction Status Date / Time adhesive tape Allergy Rash/Hives Verified 08/27/21 18:38 cephalexin [From Keflex] Allergy Rash/Hives Verified 08/27/21 18:38 sulfamethoxazole Allergy Rash/Hives Verified 08/27/21 18:38 [From Bactrim] trimethoprim [From Bactrim] Allergy Rash/Hives Verified 08/27/21 18:38 aspirin AdvReac Nausea & Verified 08/27/21 18:38 Vomiting & Diarrhea GLADYS MUSTARD Allergy Anaphylaxis Uncoded 08/27/21 18:38 Review of Systems ROS Statement: Those systems with pertinent positive or pertinent negative responses have been documented in the HPI. ROS Other: All systems not noted in ROS Statement are negative. Constitutional: Denies: fever Eyes: Denies: eye pain ENT: Denies: ear pain Respiratory: Denies: cough Cardiovascular: Denies: chest pain Endocrine: Denies: fatigue Gastrointestinal: Reports: as per HPI, nausea, vomiting Genitourinary: Denies: dysuria Musculoskeletal: Denies: back pain Skin: Denies: rash Neurological: Reports: weakness Past Medical History Past Medical History: Cancer, Hypertension Additional Past Medical History / Comment(s): Right breast lump-cancerous, Sepsis 03/2019. left leg infection History of Any Multi-Drug Resistant Organisms: None Reported Past Surgical History: Breast Surgery, Cholecystectomy, Hysterectomy Additional Past Surgical History / Comment(s): right lumpectomy Past Anesthesia/Blood Transfusion Reactions: No Reported Reaction Past Psychological History: Depression Smoking Status: Never smoker Past Alcohol Use History: None Reported Past Drug Use History: None Reported - Past Family History Mother Family Medical History: Myocardial Infarction (VT) Brother(s) Family Medical History: Cancer Additional Family Medical History / Comment(s): Lung Cancer- at age 47 General Exam Limitations: no limitations General appearance: alert, in no apparent distress Head exam: Present: normocephalic Eye exam: Present: normal appearance, PERRL ENT exam: Present: mucous membranes dry Neck exam: Present: normal inspection Respiratory exam: Present: normal lung sounds bilaterally Cardiovascular Exam: Present: regular rate, normal rhythm GI/Abdominal exam: Present: soft. Absent: distended, tenderness, pulsatile mass Extremities exam: Present: normal inspection Neurological exam: Present: alert. Absent: motor sensory deficit Psychiatric exam: Present: normal affect, normal mood Skin exam: Present: normal color Course Vital Signs 03/12/23 03/12/23 03/12/23 12:36 13:13 15:23 Temperature 98.9 F Pulse Rate 77 75 87 Respiratory 18 18 18 Rate Blood Pressure 167/92 189/93 192/96 O2 Sat by Pulse 99 99 95 Oximetry 03/12/23 16:12 Temperature Pulse Rate 90 Respiratory 18 Rate Blood Pressure 193/80 O2 Sat by Pulse 97 Oximetry EKG Findings - EKG Results: EKG: interpreted by ERMD (Left axis), sinus rhythm, normal QRS, normal ST/T Medical Decision Making - Medical Decision Making Was pt. sent in by a medical professional or institution (, PA, TUB WASH OPERATOR, urgent care, hospital, or [facility]...) When possible be specific @ -No Did you speak to anyone other than the patient for history (EMS, parent, family, police, friend...)? What history was obtained from this source @ -Family culture right history including recent antibiotic use Did you review nursing and triage notes (agree or disagree)? Why? @ -I reviewed and agree with nursing and triage notes Were old charts reviewed (outside hosp., previous admission, EMS record, old EKG, old radiological studies, urgent care reports/EKG's, [facility] records)? Report findings @ -No old charts were reviewed Differential Diagnosis (chest pain, altered mental status, abdominal pain women, abdominal pain men, vaginal bleeding, weakness, fever, dyspnea, syncope, headache, dizziness, GI bleed, back pain, seizure, CVA, palpatations, mental health, musculoskeletal)? @ -Differential Abdominal Pain Women: Appendicitis, Cholecystitis, diverticulosis, ischemic bowel, pancreatitis, hepatitis, UTI, gastroenteritis, AAA, incarcerated hernia, bowel obstruction, constipation, inflammatory bowel, hepatitis, peptic ulcer disease, splenic infarction, perforated viscus, vulvitis, ovarian torsion, PID, kidney stone, placenta abruption, this is not meant to be an all-inclusive list EKG interpreted by me (3pts min.). @ -As above X-rays interpreted by me (1pt min.). @ -Abdominal x-ray reveals no acute abnormality CT interpreted by me (1pt min.). @ -None done U/S interpreted by me (1pt. min.). @ -None done What testing was considered but not performed or refused? (CT, X-rays, U/S, labs)? Why? @ -None What meds were considered but not given or refused? Why? @ -None Did you discuss the management of the patient with other professionals (edgardo tate i.e. , PA, TUB WASH OPERATOR, lab, RT, psych nurse, social services specialist, animal rides manager, teacher, commissioned police officer, caser in)? Give summary @ -Case was discussed with Dr. Taylor, who will admit For Dr. Mclaughlin, who admits for Dr. Lee. Was smoking cessation discussed for >3mins.? @ -No Was critical care preformed (if so, how long)? @ -No Were there social determinants of health that impacted care today? How? (Homelessness, low income, unemployed, alcoholism, drug addiction, transportation, low edu. Level, literacy, decrease access to med. care, retirement, rehab)? @ -No Was there de-escalation of care discussed even if they declined (Discuss DNR or withdrawal of care, Hospice)? DNR status @ -No What co-morbidities impacted this encounter? (DM, HTN, Smoking, COPD, CAD, Cancer, CVA, ARF, Chemo, Hep., AIDS, mental health diagnosis, sleep apnea, morbid obesity)? @ -None Was patient admitted / discharged? Hospital course, mention meds given and route, prescriptions, significant lab abnormalities, going to OR and other pertinent info. @ -Patient reevaluated. No abdominal discomfort at this time. Patient and family updated. Patient will be admitted. Orders written. Computed tomography scan of the abdomen pelvis to be ordered. Patient started antibiotics for UTI and provided IV fluids for dehydration. Undiagnosed new problem with uncertain prognosis? @ -No Drug Therapy requiring intensive monitoring for toxicity (Heparin, Nitro, Insulin, Cardizem)? @ -No Were any procedures done? @ -No Diagnosis/symptom? @ -Pancreatitis, dehydration, UTI Acute, or Chronic, or Acute on Chronic? @ -Acute, acute, acute Uncomplicated (without systemic symptoms) or Complicated (systemic symptoms)? @ -Pancreatitis, is complicated with dehydration Side effects of treatment? @ -No Exacerbation, Progression, or Severe Exacerbation? @ -No Poses a threat to life or bodily function? How? (Chest pain, [place], VT, pneumonia, PE, COPD, DKA, ARF, appy, cholecystitis, CVA, Diverticulitis, Homicidal, Suicidal, threat to staff... and all critical care pts) @ -No - Lab Data Result diagrams: 03/12/23 13:14 03/12/23 13:14 Lab Results 03/12/23 03/12/23 03/12/23 Range/Units 13:14 13:14 13:14 WBC 21.9 H (3.8-10.6) k/uL RBC 5.16 (3.80-5.40) m/uL Hgb 15.2 (11.4-16.0) gm/dL Hct 46.9 H (34.0-46.0) % MCV 90.9 (80.0-100.0) fL MCH 29.5 (25.0-35.0) pg MCHC 32.4 (31.0-37.0) g/dL RDW 14.0 (11.5-15.5) % Plt Count 315 (150-450) k/uL MPV 7.6 Neutrophils % 90 % Lymphocytes % 5 % Monocytes % 5 % Eosinophils % 0 % Basophils % 0 % Neutrophils # 19.6 H (1.3-7.7) k/uL Lymphocytes # 1.1 (1.0-4.8) k/uL Monocytes # 1.0 (0-1.0) k/uL Eosinophils # 0.1 (0-0.7) k/uL Basophils # 0.0 (0-0.2) k/uL PT 11.5 (9.0-12.0) sec INR 1.1 (<1.2) APTT 23.2 (22.0-30.0) sec Sodium (137-145) mmol/L Potassium (3.5-5.1) mmol/L Chloride (98-107) mmol/L Carbon Dioxide (22-30) mmol/L Anion Gap mmol/L BUN (7-17) mg/dL Creatinine (0.52-1.04) mg/dL Est GFR (CKD-EPI)AfAm (>60 ml/min/1.73 sqM) Est GFR (CKD-EPI)NonAf (>60 ml/min/1.73 sqM) Glucose (74-99) mg/dL Calcium (8.4-10.2) mg/dL Total Bilirubin (0.2-1.3) mg/dL AST (14-36) U/L ALT (4-34) U/L Alkaline Phosphatase (38-126) U/L Troponin I (0.000-0.034) ng/mL Total Protein (6.3-8.2) g/dL Albumin (3.5-5.0) g/dL Amylase (30-110) U/L Lipase (23-300) U/L Urine Color Light Red Urine Appearance Cloudy H (Clear) Urine pH 6.0 (5.0-8.0) Ur Specific [place] 1.020 (1.001-1.035) Urine Protein 2+ H (Negative) Urine Glucose (UA) Negative (Negative) Urine Ketones Negative (Negative) Urine Blood Large H (Negative) Urine Nitrite Negative (Negative) Urine Bilirubin Negative (Negative) Urine Urobilinogen <2.0 (<2.0) mg/dL Ur Leukocyte Esterase Large H (Negative) Urine RBC >182 H (0-5) /hpf Urine WBC 132 H (0-5) /hpf Ur Squamous Epith Cells 1 (0-4) /hpf Urine Mucus Rare H (None) /hpf 03/12/23 03/12/23 Range/Units 13:14 13:14 WBC (3.8-10.6) k/uL RBC (3.80-5.40) m/uL Hgb (11.4-16.0) gm/dL Hct (34.0-46.0) % MCV (80.0-100.0) fL MCH (25.0-35.0) pg MCHC (31.0-37.0) g/dL RDW (11.5-15.5) % Plt Count (150-450) k/uL MPV Neutrophils % % Lymphocytes % % Monocytes % % Eosinophils % % Basophils % % Neutrophils # (1.3-7.7) k/uL Lymphocytes # (1.0-4.8) k/uL Monocytes # (0-1.0) k/uL Eosinophils # (0-0.7) k/uL Basophils # (0-0.2) k/uL PT (9.0-12.0) sec INR (<1.2) APTT (22.0-30.0) sec Sodium 136 L (137-145) mmol/L Potassium 4.3 (3.5-5.1) mmol/L Chloride 106 (98-107) mmol/L Carbon Dioxide 16 L (22-30) mmol/L Anion Gap 14 mmol/L BUN 40 H (7-17) mg/dL Creatinine 0.96 (0.52-1.04) mg/dL Est GFR (CKD-EPI)AfAm 66 (>60 ml/min/1.73 sqM) Est GFR (CKD-EPI)NonAf 57 (>60 ml/min/1.73 sqM) Glucose 176 H (74-99) mg/dL Calcium 10.9 H (8.4-10.2) mg/dL Total Bilirubin 0.9 (0.2-1.3) mg/dL AST 23 (14-36) U/L ALT 18 (4-34) U/L Alkaline Phosphatase 204 H (38-126) U/L Troponin I <0.012 (0.000-0.034) ng/mL Total Protein 7.0 (6.3-8.2) g/dL Albumin 4.2 (3.5-5.0) g/dL Amylase 237 H (30-110) U/L Lipase 3782 H (23-300) U/L Urine Color Urine Appearance (Clear) Urine pH (5.0-8.0) Ur Specific [place] (1.001-1.035) Urine Protein (Negative) Urine Glucose (UA) (Negative) Urine Ketones (Negative) Urine Blood (Negative) Urine Nitrite (Negative) Urine Bilirubin (Negative) Urine Urobilinogen (<2.0) mg/dL Ur Leukocyte Esterase (Negative) Urine RBC (0-5) /hpf Urine WBC (0-5) /hpf Ur Squamous Epith Cells (0-4) /hpf Urine Mucus (None) /hpf Disposition Clinical Impression: Pancreatitis Disposition: ADMITTED IP TO THIS HOSP Is patient prescribed a controlled substance at d/c from ED?: No Referrals: Kamron Lee MD [Primary Care Provider] - 1-2 days Time of Disposition: 16:59
--- NOTE | 2023-03-12 13:53 | XR ---
EXAMINATION TYPE: XR KUB DATE OF EXAM: 03/12/2023 COMPARISON: CT 08/29/2021 HISTORY: Abdominal pain TECHNIQUE: Single upright KUB image of the abdomen is obtained FINDINGS: Small bowel demonstrates no evidence for dilatation or air fluid levels. Gas and fecal material is seen in non-distended colon. No convincing evidence for pneumoperitoneum. No unusual calcifications. Cholecystectomy clips in the right upper quadrant. The lung bases are clear. The osseous structures are intact. S-shaped scoliotic curvature. IMPRESSION: Overall nonobstructive bowel gas pattern.
[2023-03-12 13:54] LABS: Basophils % (A) 0 %; Eosinophils # (A) 0.1 k/uL (0-0.7); Eosinophils % (A) 0 %; HCT 46.9 % (34.0-46.0); HGB 15.2 gm/dL (11.4-16.0); Lymphocytes # (A) 1.1 k/uL (1.0-4.8); Lymphocytes % (A) 5 %; MCH 29.5 pg (25.0-35.0); MCHC 32.4 g/dL (31.0-37.0); MCV 90.9 fL (80.0-100.0); Mean Platelet Volume 7.6; Monocytes % (A) 5 %; Neutrophils # (A) 19.6 k/uL (1.3-7.7); Neutrophils % (A) 90 %; Platelet Count 315 k/uL (150-450); RBC 5.16 m/uL (3.80-5.40); WBC 21.9 k/uL (3.8-10.6)
[2023-03-12 14:12] LABS: INR 1.1 (<1.2); Partial Thromboplastin Time 23.2 sec (22.0-30.0); Prothrombin Time 11.5 sec (9.0-12.0)
[2023-03-12 14:14] LABS: ALT 18 U/L (4-34); AST 23 U/L (14-36); Albumin 4.2 g/dL (3.5-5.0); Blood Urea Nitrogen 40 mg/dL (7-17); Glucose 176 mg/dL (74-99); Sodium 136 mmol/L (137-145); Total Bilirubin 0.9 mg/dL (0.2-1.3)
[2023-03-12 14:40] LABS: African American GFR (CKD) 66 (>60 ml/min/1.73 sqM); Alkaline Phosphatase 204 U/L (38-126); Amylase 237 U/L (30-110); Anion Gap 14 mmol/L; Calcium 10.9 mg/dL (8.4-10.2); Carbon Dioxide 16 mmol/L (22-30); Chloride 106 mmol/L (98-107); Non-African American GFR(CKD) 57 (>60 ml/min/1.73 sqM); Potassium 4.3 mmol/L (3.5-5.1)
[2023-03-12 16:01] LABS: Lipase 3782 U/L (23-300)
[2023-03-12 16:02] LABS: Appearance,Urine Cloudy (Clear); Bilirubin,Urine Negative (Negative); Blood,Urine Large (Negative); Color,Urine Light Red; Glucose,Urine (UA) Negative (Negative); Ketones,Urine Negative (Negative); Leukocyte Esterase,Urine Large (Negative); Mucus,Urine Rare /hpf; Nitrite,Urine Negative (Negative); Protein,Urine 2+ (Negative); RBC,Urine >182 /hpf (0-5); Squamous Epithelial Cell,Urine 1 /hpf (0-4); Urobilinogen,Urine <2.0 mg/dL (<2.0); WBC,Urine 132 /hpf (0-5)
[2023-03-12] MEDS ORDERED: ONDANSETRON 4 MG/2 ML VIAL IVP PRN (17:04)
[2023-03-12] MEDS ORDERED: NALOXONE 0.4 MG/ML 1 ML VIAL IV PRN (17:04)
[2023-03-12] MEDS ORDERED: AMPICILLIN 250 MG VIAL IV SCH (17:15)
[2023-03-12] MEDS: PANTOPRAZOLE 40 MG/10 ML VIAL IV SCH (18:28)
--- NOTE | 2023-03-12 18:29 | CT ---
EXAMINATION TYPE: CT abdomen pelvis w con CT DLP: 665.1 mGycm, Automated exposure control for dose reduction was used. DATE OF EXAM: 03/12/2023 6:08 PM COMPARISON: 05/02/2019 CLINICAL INDICATION:Female, 77 years old with history of Pancreatitis protocol; n/v/d, dehydration. TECHNIQUE: Axial CT of the abdomen and pelvis. Sagittal and coronal reformats were created on a [employer] workstation. Contrast used:80ml mL of Isovue 370 with IV Contrast, (none if empty) Oral contrast used: without Oral Contrast (none if empty) FINDINGS: LOWER CHEST: Unremarkable ABDOMEN LIVER: Irregular enhancement pattern of the liver with hyperemia of the right hepatic lobe peripheral ly. Fatty sparing near the falciform ligament in segment 4A. GALLBLADDER AND BILE DUCTS: Gallbladder surgically absent. Mild intrahepatic and extrahepatic biliary dilation. No evidence for choledocholithiasis. PANCREAS: Fat stranding changes are seen around the pancreas. Pancreatic parenchyma enhances uniforml y. No organizing fluid collections. SPLEEN: Unremarkable. ADRENAL GLANDS: Unremarkable. KIDNEYS AND URETERS: No evidence of hydronephrosis or renal calculus. The ureters are unremarkable. PELVIS BLADDER: Hyperemic bladder hernandez which are mildly prominent in size most pronounced superiorly howeve r there is incomplete distention of the bladder. REPRODUCTIVE: Unremarkable. ABDOMEN & PELVIS STOMACH AND BOWEL: No evidence of bowel obstruction. Suspected second portion duodenal diverticulum. PERITONEUM/RETROPERITONEUM: No evidence of pneumoperitoneum or free fluid. VASCULATURE: No evidence of aortic aneurysm. The splenic vessels are patent. No evidence for aneurysm . MUSCULOSKELETAL: No acute osseous abnormalities LYMPH NODES: No gross evidence for lymphadenopathy. SOFT TISSUE/ABDOMINAL WALL: Unremarkable IMPRESSION: 1. Acute interstitial edematous pancreatitis without evidence of organizing fluid collection or othe r complication at this time. 2. Hyperemic urinary bladder wall correlate with urinalysis for cystitis.
[2023-03-12] MEDS: SODIUM CHLORIDE 0.9% 1,000 ML IV SCH (18:36)
[2023-03-12] MEDS: AMPICILLIN 250 MG in SODIUM CHLORIDE 0.9% 50 ML IVPB SCH (18:42)
[2023-03-12] MEDS ORDERED: hydrALAZINE HCL 20 MG/ML 1 ML VIAL IVP STA (20:16)
[2023-03-13] MEDS: AMPICILLIN 250 MG in SODIUM CHLORIDE 0.9% 50 ML IVPB SCH ×2 (00:04→05:32)
[2023-03-13] MEDS: SODIUM CHLORIDE 0.9% 1,000 ML IV SCH ×3 (02:12→20:19)
[2023-03-13] MEDS: PANTOPRAZOLE 40 MG/10 ML VIAL IV SCH (08:50)
[2023-03-13] MEDS ORDERED: traMADol 50 MG TAB PO PRN (10:20)
[2023-03-13] MEDS ORDERED: ACETAMINOPHEN TAB 325 MG TAB PO PRN (10:20)
[2023-03-13 10:47] LABS: Basophils # (A) 0.03 X 10*3/uL (0.00-0.10); Basophils % (A) 0.1 %; Eosinophils # (A) 0 X 10*3/uL (0.04-0.35); Eosinophils % (A) 0 %; HCT 41.7 % (37.2-46.3); HGB 13.4 d/dL (12.0-15.0); Lymphocytes # (A) 1.25 X 10*3/uL (0.90-5.00); Lymphocytes % (A) 5.9 %; MCH 29.1 pg (27.0-32.0); MCHC 32.1 d/dL (32.0-37.0); MCV 90.7 FL (80.0-97.0); Mean Platelet Volume 10.2 FL (9.5-12.2); Monocytes # (A) 1.35 X 10*3/uL (0.20-1.00); Monocytes % (A) 6.4 %; NRBC Per 100 WBC 0 X 10*3/uL (0.00-0.01); Platelet Count 276 X 10*3/uL (140-440); RDW 14.1 % (11.5-14.5); WBC 21.25 X 10*3/uL (4.50-10.00)
[2023-03-13 11:05] LABS: ALT 13 U/L (8-44); AST 20 U/L (13-35); Albumin 3.9 d/dL (3.8-4.9); Albumin/Globulin Ratio 2.05 Ratio (1.60-3.17); Alkaline Phosphatase 191 U/L (41-126); Blood Urea Nitrogen 33.8 mg/dL (9.0-27.0); Carbon Dioxide 19.4 mmol/L (21.6-31.8); Chloride 108 mmol/L (96-109); Globulin 1.9 d/dL (1.6-3.3); Glucose 95 mg/dL (70-110); Sodium 139 mmol/L (135-145); Total Bilirubin 0.5 mg/dL (0.3-1.2); Total Protein 5.8 d/dL (6.2-8.2)
[2023-03-13 11:18] LABS: Lipase 486 U/L (14-63)
[2023-03-13 11:19] LABS: LDH 247 U/L (120-246)
[2023-03-13] MEDS: ENOXAPARIN 40 MG/0.4 ML SYRINGE SQ SCH (12:29)
[2023-03-13] MEDS: CEPHALEXIN 250 MG CAP PO SCH ×3 (12:31→21:08)
[2023-03-13] MEDS: VIT A,C & E-LUTEIN-MINERALS 1 EACH TAB PO SCH (21:08)
--- NOTE | 2023-03-13 21:49 | P.HPIM ---
History of Present Illness H&P Date: 03/13/23 Chief Complaint: Tired History of presenting complaint: Pleasant 77-year-old patient who follows with Dr. Kamron Lee. Patient was being treated for cellulitis with 10 days of antibiotics that finished day before she came in. Patient prior to coming in had vomiting for 2 days. I want to 3 times a day. Also had diarrhea. She developed upper abdominal pain. Decreased appetite tired. No fever no chills. Came down to the ER. Also having urinary frequency. Patient's found an acute pancreatitis. Feeling slightly better this morning still having some abdominal pain though. Review of systems: GEN.: Tired, decreased appetite EYES: None HEENT: None NECK: None RESPIRATORY: None CARDIOVASCULAR: None GASTROINTESTINAL: As above GENITOURINARY: Chronic urinary frequency MUSCULOSKELETAL: None LYMPHATICS: None HEMATOLOGICAL: None PSYCHIATRY: Bit forgetful NEUROLOGICAL: None Past medical history: skin cancer. Hypertension, depression Social history: Does not smoke. Alcohol occasional. Lives alone. Physical examination: VITAL SIGNS: 98.9, 77, 18, 1 67 x 92, 99% room air upon presentation GENERAL: Sitting at the edge the bed, awake, tired EYES: Pupils equal. Conjunctiva normal. HEENT: External appearance of nose and ears normal, oral cavity dry mucous membranes NECK: JVD not raised; masses not palpable. HEART: First and second heart sounds are normal; no edema. LUNGS: Respiratory rate normal; clear to auscultation. ABDOMEN: Soft, upper abdominal tenderness, no guarding rigidity, liver spleen not palpable, no masses palpable. PSYCH: O 3, mood affect normal MUSCULAR skeletal: Evidence of OA. NEUROLOGICAL: Cranial nerves grossly intact; no facial asymmetry, power and sensation grossly intact. Investigations: March 13: White count 21.2 hemoglobin 13.4 platelets 276 potassium 4 BUN 33.8 creatinine 1.0 alkaline phosphatase 191 lipase 486 March 12: White count 21.9 hemoglobin 15.2 sodium 136 potassium 4.3 bicarb 16 creatinine 0.96 amylase 237 lipase 3782 UA: Large leukoesterase WBC 132 EKG tracing personally reviewed by me-normal sinus rhythm. 75/m. KUB film personally reviewed by me: Unremarkable CT abdomen pelvis: Acute interstitial edema pancreatitis without evidence of organizing fluid collection or complication. Assessment and plan: -Acute pancreatitis. Clear liquid diet. We'll see how patient does today. IV fluids -Primary osteoarthritis multiple joints bilateral Pain medications as needed -Hyperlipidemia Diet-controlled -Essential hypertension Lisinopril hydrochlorothiazide 20/12.5 one tablet twice a day -Acute metabolic acidosis Oral sodium bicarbonate -Hyponatremia from decreased oral intake: Better IV fluids -Full code Discussed with patient. Given the complexity and severity of patient's condition expect the patient to be in the hospital at least for 2 overnights Past Medical History Past Medical History: Cancer, Hypertension Additional Past Medical History / Comment(s): Right breast lump- non cancerous, Sepsis 03/2019. left leg infection History of Any Multi-Drug Resistant Organisms: None Reported Past Surgical History: Breast Surgery, Cholecystectomy, Hysterectomy, Tonsillectomy Additional Past Surgical History / Comment(s): right lumpectomy Past Anesthesia/Blood Transfusion Reactions: No Reported Reaction Past Psychological History: Depression Additional Psychological History / Comment(s): Patient takes Zoloft for depression Smoking Status: Never smoker Past Alcohol Use History: None Reported Past Drug Use History: None Reported - Past Family History Mother Family Medical History: Myocardial Infarction ([place]) Brother(s) Family Medical History: Cancer Additional Family Medical History / Comment(s): Lung Cancer- at age 47 Medications and Allergies Home Medications Medication Instructions Recorded Confirmed Type traMADol HCL [Ultram] 50 mg PO Q6H PRN 04/09/19 03/12/23 History Acetaminophen Tab [Tylenol] 650 mg PO Q4H PRN 03/12/23 03/12/23 History Ciprofloxacin HCl [Cipro] 250 mg PO DAILY 03/12/23 03/12/23 History Loratadine [Claritin] 10 mg PO DAILY 03/12/23 03/12/23 History Vit C/E/Zn/Coppr/Lutein/Zeaxan 1 cap PO HS 03/12/23 03/12/23 History [Preservision Areds 2 Softgel] Vitamin D3(Unknown Dose) 1 tab PO HS 03/12/23 03/12/23 History Allergies Allergy/AdvReac Type Severity Reaction Status Date / Time adhesive tape Allergy Rash/Hives Verified 03/12/23 17:27 cephalexin [From Keflex] Allergy Rash/Hives Verified 03/12/23 17:27 sulfamethoxazole Allergy Rash/Hives Verified 03/12/23 17:27 [From Bactrim] trimethoprim [From Bactrim] Allergy Rash/Hives Verified 03/12/23 17:27 aspirin AdvReac Nausea & Verified 03/12/23 17:27 Vomiting & Diarrhea doxycycline AdvReac Nausea & Verified 03/12/23 17:27 Vomiting & Diarrhea nitrofurantoin AdvReac Leg Verified 03/12/23 17:27 [From Macrobid] swelling GLADYS MUSTARD Allergy Anaphylaxis Uncoded 03/12/23 17:27 Physical Exam Vitals: Vital Signs Temp Pulse Pulse Resp BP BP Pulse Ox 03/13/23 07:10 98.1 F 73 18 177/73 96 03/13/23 00:51 98.7 F 86 18 158/71 96 03/12/23 21:52 160/69 03/12/23 20:00 16 03/12/23 18:26 98.9 F 77 16 202/72 99 03/12/23 17:51 85 18 196/99 98 03/12/23 16:12 90 18 193/80 97 03/12/23 15:23 87 18 192/96 95 03/12/23 13:13 75 18 189/93 99 03/12/23 12:36 98.9 F 77 18 167/92 99 Intake and Output 03/12/23 03/13/23 03/13/23 22:59 06:59 14:59 Intake Total 1999 Balance 1999 Intake: Intake, IV Titration 1400 Amount Ampicillin 250 mg In 100 Sodium Chloride 0.9% 50 ml @ 100 mls/hr IVPB Q6HR [facility] Rx#:[id number] Sodium Chloride 0.9% 1, 1300 000 ml @ 110 mls/hr IV . Q9H6M [facility] Rx#:[id number] Oral 600 Other: Voiding Method Toilet # Voids 5 Weight 53.07 kg Results CBC & Chem 7: 03/13/23 05:52 03/13/23 05:52 Labs: Abnormal Lab Results - Last 24 Hours (Table) 03/12/23 03/12/23 03/12/23 Range/Units 13:14 13:14 13:14 WBC 21.9 H (3.8-10.6) k/uL Hct 46.9 H (34.0-46.0) % Neutrophils # 19.6 H (1.3-7.7) k/uL Sodium 136 L (137-145) mmol/L Carbon Dioxide 16 L (22-30) mmol/L BUN 40 H (7-17) mg/dL Glucose 176 H (74-99) mg/dL Calcium 10.9 H (8.4-10.2) mg/dL Alkaline Phosphatase 204 H (38-126) U/L Amylase 237 H (30-110) U/L Lipase 3782 H (23-300) U/L Urine Appearance Cloudy H (Clear) Urine Protein 2+ H (Negative) Urine Blood Large H (Negative) Ur Leukocyte Esterase Large H (Negative) Urine RBC >182 H (0-5) /hpf Urine WBC 132 H (0-5) /hpf Urine Mucus Rare H (None) /hpf Thrombosis Risk Factor Assmnt - Choose All That Apply Any of the Below Risk Factors Present?: Yes Each Factor Represents 1 point: Sepsis (< 1month) Other Risk Factors: No Each Risk Factor Represents 3 Points: Age 75 years or older Other congenital or acquired thrombophilia - If yes, enter type in comment: No Thrombosis Risk Factor Assessment Total Risk Factor Score: 4 Thrombosis Risk Factor Assessment Level: Moderate Risk
[2023-03-14] MEDS: SODIUM CHLORIDE 0.9% 1,000 ML IV SCH (05:17)
[2023-03-14] MEDS: ENOXAPARIN 40 MG/0.4 ML SYRINGE SQ SCH (08:47)
[2023-03-14] MEDS: CEPHALEXIN 250 MG CAP PO SCH ×4 (08:47→20:50)
--- NOTE | 2023-03-14 16:58 | P.PN ---
Progress Note - Text Progress Note Date: 03/14/23 Chief Complaint: Tired History of presenting complaint: Pleasant 77-year-old patient who follows with Dr. Kamron Lee. Patient was being treated for cellulitis with 10 days of antibiotics that finished day before she came in. Patient prior to coming in had vomiting for 2 days. I want to 3 times a day. Also had diarrhea. She developed upper abdominal pain. Decreased appetite tired. No fever no chills. Came down to the ER. Also having urinary frequency. Patient's found an acute pancreatitis. Feeling slightly better this morning still having some abdominal pain though. 03/14/2023: Admitted with acute pancreatitis. Today having some loose bowels. Abdominal pain is actually better. Drinking fluids. No fever. No nausea vomiting. Active Medications Acetaminophen (Acetaminophen Tab 325 Mg Tab) 650 mg PO Q4H PRN PRN Reason: Fever and/ or Pain Cephalexin (Cephalexin 250 Mg Cap) 250 mg PO QID [facility]; Protocol Last Admin: 03/14/23 13:14 Dose: 250 mg Enoxaparin Sodium (Enoxaparin 40 Mg/0.4 Ml Syringe) 40 mg SQ DAILY [facility] Last Admin: 03/14/23 08:47 Dose: 40 mg Multivitamins/Minerals (Vit A,C & T-Jvwclj-Nechjnco 1 Each Tab) 1 each PO HS [facility] Last Admin: 03/13/23 21:08 Dose: 1 each Naloxone HCl (Naloxone 0.4 Mg/Ml 1 Ml Vial) 0.2 mg IV Q2M PRN PRN Reason: Opioid Reversal Ondansetron HCl (Ondansetron 4 Mg/2 Ml Vial) 4 mg IVP Q8HR PRN PRN Reason: Nausea And Vomiting Tramadol HCl (Tramadol 50 Mg Tab) 50 mg PO Q6H PRN PRN Reason: Pain Past medical history: skin cancer. Hypertension, depression Social history: Does not smoke. Alcohol occasional. Lives alone. Physical examination: VITAL SIGNS: 98.3, 65, 18, 171/74, 99% room air GENERAL: Resting in bed EYES: Pupils equal. Conjunctiva normal. HEENT: External appearance of nose and ears normal, oral cavity dry mucous membranes NECK: JVD not raised; masses not palpable. HEART: First and second heart sounds are normal; no edema. LUNGS: Respiratory rate normal; clear to auscultation. ABDOMEN: Soft, no tenderness, no guarding rigidity, liver spleen not palpable, no masses palpable. PSYCH: O 3, mood affect normal MUSCULAR skeletal: Evidence of OA. Investigations: March 13: White count 21.2 hemoglobin 13.4 platelets 276 potassium 4 BUN 33.8 creatinine 1.0 alkaline phosphatase 191 lipase 486 March 12: White count 21.9 hemoglobin 15.2 sodium 136 potassium 4.3 bicarb 16 creatinine 0.96 amylase 237 lipase 3782 UA: Large leukoesterase WBC 132 EKG tracing personally reviewed by me-normal sinus rhythm. 75/m. KUB film personally reviewed by me: Unremarkable CT abdomen pelvis: Acute interstitial edema pancreatitis without evidence of organizing fluid collection or complication. Assessment and plan: -Acute pancreatitis.: Improving Low-fat diet. -Functional diarrhea Add Metamucil -Primary osteoarthritis multiple joints bilateral Pain medications as needed -Hyperlipidemia Diet-controlled -Acute UTI with cystitis Keflex -Essential hypertension Lisinopril hydrochlorothiazide 20/12.5 one tablet twice a day -Acute metabolic acidosis Oral sodium bicarbonate -Hyponatremia from decreased oral intake: Better IV fluids -Full code Low-fat diet. Metamucil. Hopefully discharge tomorrow Past Medical History Past Medical History: Cancer, Hypertension Additional Past Medical History / Comment(s): Right breast lump- non cancerous, Sepsis 03/2019. left leg infection History of Any Multi-Drug Resistant Organisms: None Reported Past Surgical History: Breast Surgery, Cholecystectomy, Hysterectomy, T onsillectomy Additional Past Surgical History / Comment(s): right lumpectomy Past Anesthesia/Blood Transfusion Reactions: No Reported Reaction Past Psychological History: Depression Additional Psychological History / Comment(s): Patient takes Zoloft for depression Smoking Status: Never smoker Past Alcohol Use History: None Reported Past Drug Use History: None Reported - Past Family History Mother Family Medical History: Myocardial Infarction ([place]) Brother(s) Family Medical History: Cancer Additional Family Medical History / Comment(s): Lung Cancer- at age 47 Medications and Allergies Home Medications Medication Instructions Recorded Confirmed Type traMADol HCL [Ultram] 50 mg PO Q6H PRN 04/09/19 03/12/23 History Acetaminophen Tab [Tylenol] 650 mg PO Q4H PRN 03/12/23 03/12/23 History Ciprofloxacin HCl [Cipro] 250 mg PO DAILY 03/12/23 03/12/23 History Loratadine [Claritin] 10 mg PO DAILY 03/12/23 03/12/23 History Vit C/E/Zn/Coppr/Lutein/Zeaxan 1 cap PO HS 03/12/23 03/12/23 History [Preservision Areds 2 Softgel] Vitamin D3(Unknown Dose) 1 tab PO HS 03/12/23 03/12/23 History Allergies Allergy/AdvReac Type Severity Reaction Status Date / Time adhesive tape Allergy Rash/Hives Verified 03/12/23 17:27 cephalexin [From Keflex] Allergy Rash/Hives Verified 03/12/23 17:27 sulfamethoxazole Allergy Rash/Hives Verified 03/12/23 17:27 [From Bactrim] trimethoprim [From Bactrim] Allergy Rash/Hives Verified 03/12/23 17:27 aspirin AdvReac Nausea & Verified 03/12/23 17:27 Vomiting & Diarrhea doxycycline AdvReac Nausea & Verified 03/12/23 17:27 Vomiting & Diarrhea nitrofurantoin AdvReac Leg Verified 03/12/23 17:27 [From Macrobid] swelling GLADYS MUSTARD Allergy Anaphylaxis Uncoded 03/12/23 17:27 Physical Exam Vitals: Vital Signs Temp Pulse Pulse Resp BP BP Pulse Ox 03/13/23 07:10 98.1 F 73 18 177/73 96 03/13/23 00:51 98.7 F 86 18 158/71 96 03/12/23 21:52 160/69 03/12/23 20:00 16 03/12/23 18:26 98.9 F 77 16 202/72 99 03/12/23 17:51 85 18 196/99 98 03/12/23 16:12 90 18 193/80 97 03/12/23 15:23 87 18 192/96 95 03/12/23 13:13 75 18 189/93 99 03/12/23 12:36 98.9 F 77 18 167/92 99 Intake and Output 03/12/23 03/13/23 03/13/23 22:59 06:59 14:59 Intake Total 1999 Balance 1999 Intake: Intake, IV Titration 1400 Amount Ampicillin 250 mg In 100 Sodium Chloride 0.9% 50 ml @ 100 mls/hr IVPB Q6HR [facility] Rx#:[id number] Sodium Chloride 0.9% 1, 1300 000 ml @ 110 mls/hr IV . Q9H6M [facility] Rx#:[id number] Oral 600 Other: Voiding Method Toilet # Voids 5 Weight 53.07 kg Results CBC & Chem 7: 03/13/23 05:52 03/13/23 05:52 Labs: Abnormal Lab Results - Last 24 Hours (Table) 03/12/23 03/12/23 03/12/23 Range/Units 13:14 13:14 13:14 WBC 21.9 H (3.8-10.6) k/uL Hct 46.9 H (34.0-46.0) % Neutrophils # 19.6 H (1.3-7.7) k/uL Sodium 136 L (137-145) mmol/L Carbon Dioxide 16 L (22-30) mmol/L BUN 40 H (7-17) mg/dL Glucose 176 H (74-99) mg/dL Calcium 10.9 H (8.4-10.2) mg/dL Alkaline Phosphatase 204 H (38-126) U/L Amylase 237 H (30-110) U/L Lipase 3782 H (23-300) U/L Urine Appearance Cloudy H (Clear) Urine Protein 2+ H (Negative) Urine Blood Large H (Negative) Ur Leukocyte Esterase Large H (Negative) Urine RBC >182 H (0-5) /hpf Urine WBC 132 H (0-5) /hpf Urine Mucus Rare H (None) /hpf Thrombosis Risk Factor Assmnt - Choose All That Apply Any of the Below Risk Factors Present?: Yes Each Factor Represents 1 point: Sepsis (< 1month) Other Risk Factors: No Each Risk Factor Represents 3 Points: Age 75 years or older Other congenital or acquired thrombophilia - If yes, enter type in comment: No Thrombosis Risk Factor Assessment Total Risk Factor Score: 4 Thrombosis Risk Factor Assessment Level: Moderate Risk Additional CC's: Kamron Lee
[2023-03-14] MEDS: PSYLLIUM HUSK 100% 6 GM PACKET PO SCH (20:49)
[2023-03-14] MEDS: VIT A,C & E-LUTEIN-MINERALS 1 EACH TAB PO SCH (20:49)
[2023-03-15 02:48] VITALS: RESP 14
[2023-03-15 05:10] LABS: African American GFR (CKD) 74 (>60 ml/min/1.73 sqM); Anion Gap 5 mmol/L; Blood Urea Nitrogen 18 mg/dL (7-17); Calcium 9.1 mg/dL (8.4-10.2); Carbon Dioxide 26 mmol/L (22-30); Chloride 104 mmol/L (98-107); Glucose 86 mg/dL (74-99); Non-African American GFR(CKD) 64 (>60 ml/min/1.73 sqM); Potassium 3.2 mmol/L (3.5-5.1); Sodium 135 mmol/L (137-145)
[2023-03-15] MEDS: ENOXAPARIN 40 MG/0.4 ML SYRINGE SQ SCH (09:08)
[2023-03-15] MEDS: PSYLLIUM HUSK 100% 6 GM PACKET PO SCH (09:09)
[2023-03-15] MEDS: CEPHALEXIN 250 MG CAP PO SCH ×2 (09:09→13:46)
[2023-03-15] MEDS ORDERED: LISINOPRIL-HCTZ 20-12.5 MG 1 EACH TAB PO STA (11:09)
[2023-03-15 12:50] VITALS: BP 146/77; PULSE 59; TEMP 98.8
--- NOTE | 2023-03-15 19:14 | P.DS ---
Providers Date of admission: 03/12/23 17:04 Expected date of discharge: 03/15/23 Attending physician: Vlad Suggs Primary care physician: Kamron Lee [facility] Course: Chief Complaint: Tired History of presenting complaint: Pleasant 77-year-old patient who follows with Dr. Kamron Lee. Patient was being treated for cellulitis with 10 days of antibiotics that finished day before she came in. Patient prior to coming in had vomiting for 2 days. I want to 3 times a day. Also had diarrhea. She developed upper abdominal pain. Decreased appetite tired. No fever no chills. Came down to the ER. Also having urinary frequency. Patient's found an acute pancreatitis. Feeling slightly better this morning still having some abdominal pain though. 03/14/2023: Admitted with acute pancreatitis. Today having some loose bowels. Abdominal pain is actually better. Drinking fluids. No fever. No nausea vomiting. 03/15/2023: Patient doing well. No abdominal pain. Tolerated diet. Diet was discussed with the patient. Questions answered. Lisinopril hydrochlorothiazide added for blood pressure. Patient check daily blood pressure at home. Follow- up with PCP. Antibiotic completed. Discussion and discharge planning more than 35 minutes Past medical history: skin cancer. Hypertension, depression Social history: Does not smoke. Alcohol occasional. Lives alone. Physical examination: VITAL SIGNS: 98.8, 59, 14, 1 4677, 97% room air GENERAL: Resting in bed EYES: Pupils equal. Conjunctiva normal. HEENT: External appearance of nose and ears normal, oral cavity dry mucous membranes NECK: JVD not raised; masses not palpable. HEART: First and second heart sounds are normal; no edema. LUNGS: Respiratory rate normal; clear to auscultation. ABDOMEN: Soft, no tenderness, no guarding rigidity, liver spleen not palpable, no masses palpable. PSYCH: O 3, mood affect normal MUSCULAR skeletal: Evidence of OA. Investigations: March 13: White count 21.2 hemoglobin 13.4 platelets 276 potassium 4 BUN 33.8 creatinine 1.0 alkaline phosphatase 191 lipase 486 March 12: White count 21.9 hemoglobin 15.2 sodium 136 potassium 4.3 bicarb 16 creatinine 0.96 amylase 237 lipase 3782 UA: Large leukoesterase WBC 132 EKG tracing personally reviewed by me-normal sinus rhythm. 75/m. KUB film personally reviewed by me: Unremarkable CT abdomen pelvis: Acute interstitial edema pancreatitis without evidence of organizing fluid collection or complication. Assessment and plan: -Acute pancreatitis.: Improved Low-fat diet. -Functional diarrhea Metamucil -Primary osteoarthritis multiple joints bilateral Pain medications as needed -Hyperlipidemia Diet-controlled -Acute UTI with cystitis Keflex. Completed course -Essential hypertension Lisinopril hydrochlorothiazide 20/12.5 one tablet daily at bedtime -Acute metabolic acidosis Oral sodium bicarbonate -Hyponatremia from decreased oral intake: Better -Full code Disposition: Home Past Medical History Past Medical History: Cancer, Hypertension Additional Past Medical History / Comment(s): Right breast lump- non cancerous, Sepsis 03/2019. left leg infection History of Any Multi-Drug Resistant Organisms: None Reported Past Surgical History: Breast Surgery, Cholecystectomy, Hysterectomy, Tonsillectomy Additional Past Surgical History / Comment(s): right lumpectomy Past Anesthesia/Blood Transfusion Reactions: No Reported Reaction Past Psychological History: Depression Additional Psychological History / Comment(s): Patient takes Zoloft for depression Smoking Status: Never smoker Past Alcohol Use History: None Reported Past Drug Use History: None Reported - Past Family History Mother Family Medical History: Myocardial Infarction ([place]) Brother(s) Family Medical History: Cancer Additional Family Medical History / Comment(s): Lung Cancer- at age 47 Medications and Allergies Home Medications Medication Instructions Recorded Confirmed Type traMADol HCL [Ultram] 50 mg PO Q6H PRN 04/09/19 03/12/23 History Acetaminophen Tab [Tylenol] 650 mg PO Q4H PRN 03/12/23 03/12/23 History Ciprofloxacin HCl [Cipro] 250 mg PO DAILY 03/12/23 03/12/23 History Loratadine [Claritin] 10 mg PO DAILY 03/12/23 03/12/23 History Vit C/E/Zn/Coppr/Lutein/Zeaxan 1 cap PO HS 03/12/23 03/12/23 History [Preservision Areds 2 Softgel] Vitamin D3(Unknown Dose) 1 tab PO HS 03/12/23 03/12/23 History Allergies Allergy/AdvReac Type Severity Reaction Status Date / Time adhesive tape Allergy Rash/Hives Verified 03/12/23 17:27 cephalexin [From Keflex] Allergy Rash/Hives Verified 03/12/23 17:27 sulfamethoxazole Allergy Rash/Hives Verified 03/12/23 17:27 [From Bactrim] trimethoprim [From Bactrim] Allergy Rash/Hives Verified 03/12/23 17:27 aspirin AdvReac Nausea & Verified 03/12/23 17:27 Vomiting & Diarrhea doxycycline AdvReac Nausea & Verified 03/12/23 17:27 Vomiting & Diarrhea nitrofurantoin AdvReac Leg Verified 03/12/23 17:27 [From Macrobid] swelling GLADYS MUSTARD Allergy Anaphylaxis Uncoded 03/12/23 17:27 Physical Exam Vitals: Vital Signs Temp Pulse Pulse Resp BP BP Pulse Ox 03/13/23 07:10 98.1 F 73 18 177/73 96 03/13/23 00:51 98.7 F 86 18 158/71 96 03/12/23 21:52 160/69 03/12/23 20:00 16 03/12/23 18:26 98.9 F 77 16 202/72 99 03/12/23 17:51 85 18 196/99 98 03/12/23 16:12 90 18 193/80 97 03/12/23 15:23 87 18 192/96 95 03/12/23 13:13 75 18 189/93 99 03/12/23 12:36 98.9 F 77 18 167/92 99 Intake and Output 03/12/23 03/13/23 03/13/23 22:59 06:59 14:59 Intake Total 1999 Balance 1999 Intake: Intake, IV Titration 1400 Amount Ampicillin 250 mg In 100 Sodium Chloride 0.9% 50 ml @ 100 mls/hr IVPB Q6HR [facility] Rx#:[id number] Sodium Chloride 0.9% 1, 1300 000 ml @ 110 mls/hr IV . Q9H6M [facility] Rx#:[id number] Oral 600 Other: Voiding Method Toilet # Voids 5 Weight 53.07 kg Results CBC & Chem 7: 03/13/23 05:52 03/13/23 05:52 Labs: Abnormal Lab Results - Last 24 Hours (Table) 03/12/23 03/12/23 03/12/23 Range/Units 13:14 13:14 13:14 WBC 21.9 H (3.8-10.6) k/uL Hct 46.9 H (34.0-46.0) % Neutrophils # 19.6 H (1.3-7.7) k/uL Sodium 136 L (137-145) mmol/L Carbon Dioxide 16 L (22-30) mmol/L BUN 40 H (7-17) mg/dL Glucose 176 H (74-99) mg/dL Calcium 10.9 H (8.4-10.2) mg/dL Alkaline Phosphatase 204 H (38-126) U/L Amylase 237 H (30-110) U/L Lipase 3782 H (23-300) U/L Urine Appearance Cloudy H (Clear) Urine Protein 2+ H (Negative) Urine Blood Large H (Negative) Ur Leukocyte Esterase Large H (Negative) Urine RBC >182 H (0-5) /hpf Urine WBC 132 H (0-5) /hpf Urine Mucus Rare H (None) /hpf Thrombosis Risk Factor Assmnt - Choose All That Apply Any of the Below Risk Factors Present?: Yes Each Factor Represents 1 point: Sepsis (< 1month) Other Risk Factors: No Each Risk Factor Represents 3 Points: Age 75 years or older Other congenital or acquired thrombophilia - If yes, enter type in comment: No Thrombosis Risk Factor Assessment Total Risk Factor Score: 4 Thrombosis Risk Factor Assessment Level: Moderate Risk Additional CC's: Kamron Lee Plan - Discharge Summary Discharge Rx Participant: No New Discharge Prescriptions: New Psyllium Husk 100% [Metamucil Packet] 6 gm PO BID packet Lisinopril-Hctz 20-12.5 mg [Zestoretic 20-12.5] 1 tab PO HS #30 tab Continue traMADol HCL [Ultram] 50 mg PO Q6H PRN PRN Reason: Pain Vit C/E/Zn/Coppr/Lutein/Zeaxan [Preservision Areds 2 Softgel] 1 cap PO HS Vitamin D3(Unknown Dose) 1 tab PO HS Acetaminophen Tab [Tylenol] 650 mg PO Q4H PRN PRN Reason: Fever And/ Or Pain Discontinued Ciprofloxacin HCl [Cipro] 250 mg PO DAILY No Action Loratadine [Claritin] 10 mg PO DAILY Discharge Medication List traMADol HCL [Ultram] 50 mg PO Q6H PRN 04/09/19 [History] Acetaminophen Tab [Tylenol] 650 mg PO Q4H PRN 03/12/23 [History] Loratadine [Claritin] 10 mg PO DAILY 03/12/23 [History] Vit C/E/Zn/Coppr/Lutein/Zeaxan [Preservision Areds 2 Softgel] 1 cap PO HS 03/12/23 [History] Vitamin D3(Unknown Dose) 1 tab PO HS 03/12/23 [History] Lisinopril-Hctz 20-12.5 mg [Zestoretic 20-12.5] 1 tab PO HS #30 tab 03/15/23 [Rx] Psyllium Husk 100% [Metamucil Packet] 6 gm PO BID packet 03/15/23 [Rx] Follow up Appointment(s)/Referral(s): Kamron Lee MD [Primary Care Provider] - 03/20/23 1:00 pm Patient Instructions/Handouts: Pancreatitis (DC) Activity/Diet/Wound Care/Special Instructions: low fat soft diet Activity limited until seen by DrPal Discharge Disposition: HOME SELF-CARE
== END 2023-03-15 16:23 | disposition home or self-care (01) | DRG 439 ==
LOC: EC 12:22 → 5NMEDONC 17:04
PROVIDERS: ADMIT Hospitalist; ATTEND Hospitalist
DX: K85.90 Acute pancreatitis without necrosis or infection, unspecified (principal); E87.1 Hypo-osmolality and hyponatremia; N30.01 Acute cystitis with hematuria; E87.21 Acute metabolic acidosis; I10 Essential (primary) hypertension; E86.0 Dehydration; F32.A Depression, unspecified; K59.1 Functional diarrhea; M15.9 Polyosteoarthritis, unspecified; E78.5 Hyperlipidemia, unspecified; R35.0 Frequency of micturition; Z79.899 Other long term (current) drug therapy; Z85.828 Personal history of other malignant neoplasm of skin; Z88.6 Allergy status to analgesic agent; Z88.1 Allergy status to other antibiotic agents; Z88.2 Allergy status to sulfonamides
CPT/HCPCS: 36415; 74018; 74177; 80048; 80053; 81001; 82150; 83605; 83615; 83690; 84484; 85025; 85610; 85730; 87040; 93005; 96361; 96374; 96375; 99285

== ENCOUNTER 2024-08-04 18:40 | Observation (INO) | payer MEDICARE ==
--- NOTE | 2024-08-04 19:27 | ED ---
General Adult HPI - General Chief complaint: Urogenital Stated complaint: Septic UTI Time Seen by Provider: 08/04/24 18:42 Source: EMS Mode of arrival: EMS Limitations: no limitations - History of Present Illness Initial comments: Patient is a pleasant 78-year-old female with a past medical history hypertension, lichen sclerosis, frequent UTIs presenting today as a transfer from [facility] for urinary tract infection. She called her sister t his morning and patient's sister said she sounded confused which is typical of patient's UTIs. When she arrived to [facility] she had a temperature of 102.7 degrees. Once she received IV fluids and antibiotics her mentation improved and she has since returned to baseline. Patient's current only complaint is left-sided back pain that states is chronic from her for her and takes tramadol for. She has not gotten her tramadol today and has been laying in an ER bed all day so this is exacerbated her pain. Otherwise she denies any chest pain, shortness of breath, nausea, vomiting, abdominal pain, dysuria, hematuria. Has chronic diarrhea. - Related Data Home Medications Medication Instructions Recorded Confirmed Loratadine [Claritin] 10 mg PO DAILY 03/12/23 08/05/24 Vit C/E/Zn/Coppr/Lutein/Zeaxan 1 cap PO BID 03/12/23 08/05/24 [Preservision Areds 2 Softgel] Acetaminophen Tab [Tylenol Tab] 500 mg PO Q6H PRN 08/05/24 08/05/24 Cholecalciferol (Vitamin D3) 50 mcg PO DAILY 08/05/24 08/05/24 [Vitamin D3 (50 Mcg = 2000 Iu)] Clobetasol Propionate [Temovate 1 applic TOPICAL MOTH 08/05/24 08/05/24 0.05% Oint] Sodium Bicarbonate Tab 650 mg PO BID 08/05/24 08/05/24 amLODIPine [Norvasc] 5 mg PO DAILY 08/05/24 08/05/24 gemfibroziL [Lopid] 600 mg PO BID 08/05/24 08/05/24 lisinopriL [Zestril] 5 mg PO DAILY 08/05/24 08/05/24 Allergies Allergy/AdvReac Type Severity Reaction Status Date / Time adhesive tape Allergy Rash/Hives Verified 08/05/24 10:01 sulfamethoxazole Allergy Rash/Hives Verified 08/05/24 10:01 [From Bactrim] trimethoprim [From Bactrim] Allergy Rash/Hives Verified 08/05/24 10:01 aspirin AdvReac Nausea & Verified 08/05/24 10:01 Vomiting & Diarrhea doxycycline AdvReac Nausea & Verified 08/05/24 10:01 Vomiting & Diarrhea nitrofurantoin AdvReac Leg Verified 08/05/24 10:01 [From Macrobid] swelling GLADYS MUSTARD Allergy Anaphylaxis Uncoded 08/05/24 10:01 Review of Systems ROS Statement: Those systems with pertinent positive or pertinent negative responses have been documented in the HPI. ROS Other: All systems not noted in ROS Statement are negative. Past Medical History Past Medical History: Cancer, Hypertension Additional Past Medical History / Comment(s): Right breast lump- non cancerous, Sepsis 03/2019. left leg infection History of Any Multi-Drug Resistant Organisms: None Reported Past Surgical History: Breast Surgery, Cholecystectomy, Hysterectomy, Tonsillectomy Additional Past Surgical History / Comment(s): right lumpectomy Past Anesthesia/Blood Transfusion Reactions: No Reported Reaction Past Psychological History: Depression Smoking Status: Never smoker Past Alcohol Use History: None Reported Past Drug Use History: None Reported - Past Family History Mother Family Medical History: Myocardial Infarction ([place]) Brother(s) Family Medical History: Cancer Additional Family Medical History / Comment(s): Lung Cancer- at age 47 General Exam - General Exam Comments Initial Comments: PE: CONSTITUTIONAL: No apparent distress, well appearing SKIN: Warm, dry, no jaundice, hives or petechiae EYES: Pupils are equally round, extraocular movements intact without nystagmus, clear conjunctiva, non-icteric sclera HENT: Normocephalic, atraumatic, moist mucus membranes, oropharynx clear without exudates NECK: , Full range of motion, normal appearance PULMONARY: Clear to auscultation without wheezes, rhonchi, or rales, normal excursion, no accessory muscle use and no stridor CARDIOVASCULAR: Regular rate, rhythm, normal S1 and S2. No appreciated murmurs, rubs or gallops. Strong radial pulses with intact distal perfusion. No lower extremity edema GASTROINTESTINAL: Soft, active bowel sounds throughout, non-tender, non- distended, no palpable masses, no rebound or guarding. No hepatosplenomegaly, no CVA TTP GENITOURINARY: MUSCULOSKELETAL: Extremities have no gross deformity, no edema, redness, or swelling. NEUROLOGIC:_a/o x 3, GCS 15, normal mentation and speech. Moves all extremities x 4 without motor or sensory deficit PSYCHIATRIC:_normal mood and affect, thought process is clear and linear Limitations: no limitations Course Vital Signs 08/04/24 08/04/24 08/04/24 18:49 20:31 20:55 Temperature 100.6 F H 99 F Pulse Rate 84 83 Respiratory 16 18 Rate Blood Pressure 115/74 125/83 O2 Sat by Pulse 100 98 Oximetry 08/04/24 21:18 Temperature Pulse Rate 84 Respiratory 16 Rate Blood Pressure 125/83 O2 Sat by Pulse 96 Oximetry EKG Findings - EKG Comments: EKG Findings:: Sinus rhythm with occasional PVCs, rate 79 bpm, CT interval 134 ms, QRS duration 102 ms, QT/QTc 390/425 ms, no ST elevations or depressions, no STEMI, borderline left axis deviation Medical Decision Making - Medical Decision Making Was pt. sent in by a medical professional or institution (, PA, CERTIFIED PHLEBOTOMIST, urgent care, hospital, or custodial...) When possible be specific @ -No Did you speak to anyone other than the patient for history (EMS, parent, family, police, friend...)? What history was obtained from this source @ -No Did you review nursing and triage notes (agree or disagree)? Why? @ -I reviewed nursing and triage notes Were old charts reviewed (outside hosp., previous admission, EMS record, old EKG, old radiological studies, urgent care reports/EKG's, custodial records)? Report findings @ -Medical records reviewed reviewed chart sent with patient from transferring facility, blood work significant for leukocytosis white blood cell count 19.8, Tylenol was given at 3:30 PM for fever 650 mg, patient given levofloxacin prior to arrival Differential Diagnosis (chest pain, altered mental status, abdominal pain women, abdominal pain men, vaginal bleeding, weakness, fever, dyspnea, syncope, headache, dizziness, GI bleed, back pain, seizure, CVA, palpatations, mental health, musculoskeletal)? Differential diagnose transmet our top considerations include acute cystitis, pyelonephritis, ureterolithiasis, this is not all-inclusive list EKG interpreted by me (3pts min.). @ -As above X-rays interpreted by me (1pt min.). @ -None done CT interpreted by me (1pt min.). @ -None done U/S interpreted by me (1pt. min.). @ -None done What testing was considered but not performed or refused? (CT, X-rays, U/S, labs)? Why? @ -None What meds were considered but not given or refused? Why? @ -None Did you discuss the management of the patient with other professionals (professionals i.e. DrPal, PA, CERTIFIED PHLEBOTOMIST, lab, RT, psych nurse, social and political studies professor, after school teacher, teacher, environmental officer, rn case management)? Give summary @ -No Was smoking cessation discussed for >3mins.? @ -No Was critical care preformed (if so, how long)? @ -No Were there social determinants of health that impacted care today? How? (Homelessness, low income, unemployed, alcoholism, drug addiction, transportation, low edu. Level, literacy, decrease access to med. care, half-way, rehab)? @ -No Was there de-escalation of care discussed even if they declined (Discuss DNR or withdrawal of care, Hospice)? @ -No What co-morbidities impacted this encounter? (DM, HTN, Smoking, COPD, CAD, Cancer, CVA, ARF, Chemo, Hep., AIDS, mental health diagnosis, sleep apnea, morbid obesity)? @ -None Was patient admitted / discharged? Hospital course, mention meds given and route, prescriptions, significant lab abnormalities, going to OR and other pertinent info. @ admission-this is a pleasant 78-year-old female past medical history frequent UTIs presenting today as a transfer from [facility] for urinary tract infection. Patient reportedly confused and febrile early this morning which is what prompted her visit to the hospital initially, she has since returned to room baseline mental status and was found to have a UTI. Transferred here for admission. Patient seen and assessed by myself on arrival. Complete history physical exam performed. She is currently well-appearing, abdomen is soft and nontender, no CVA tenderness. AOx4. Patient is febrile on arrival to 100.6, last dose was 650 Tylenol at 3:30 PM, next dose will be due in about 20 minutes so additional Tylenol was ordered. Basic labs, urinalysis here ordered and cultured. Pt agreeable with plan for admission. Case discussed with Dr. Suggs, kindly accepts pt for admission. Undiagnosed new problem with uncertain prognosis? @ -No Drug Therapy requiring intensive monitoring for toxicity (Heparin, Nitro, Insulin, Cardizem)? @ -No Were any procedures done? @ -No Diagnosis/symptom? @Sepsis secondary to UTI Acute, or Chronic, or Acute on Chronic? @Acute Uncomplicated (without systemic symptoms) or Complicated (systemic symptoms)? @Complicated Side effects of treatment? @ -No Exacerbation, Progression, or Severe Exacerbation? @ -No Poses a threat to life or bodily function? How? (Chest pain, [place], [place], pneumonia, PE, COPD, DKA, ARF, appy, cholecystitis, CVA, Diverticulitis, Homicidal, Suicidal, threat to staff... and all critical care pts) @ -Yes - Lab Data Result diagrams: 08/04/24 19:30 08/04/24 19:30 Lab Results 08/04/24 08/04/24 08/04/24 Range/Units 19:30 19:30 19:30 WBC 21.0 H (3.8-10.6) k/uL RBC 4.13 (3.80-5.40) m/uL Hgb 12.4 (11.4-16.0) gm/dL Hct 36.7 (34.0-46.0) % MCV 88.9 (80.0-100.0) fL MCH 30.1 (25.0-35.0) pg MCHC 33.9 (31.0-37.0) g/dL RDW 12.5 (11.5-15.5) % Plt Count 350 (150-450) k/uL MPV 6.9 Neutrophils % 92 % Lymphocytes % 4 % Monocytes % 3 % Eosinophils % 1 % Basophils % 0 % Neutrophils # 19.3 H (1.3-7.7) k/uL Lymphocytes # 0.9 L (1.0-4.8) k/uL Monocytes # 0.5 (0-1.0) k/uL Eosinophils # 0.2 (0-0.7) k/uL Basophils # 0.0 (0-0.2) k/uL Sodium 137 (137-145) mmol/L Potassium 4.0 (3.5-5.1) mmol/L Chloride 107 (98-107) mmol/L Carbon Dioxide 18 L (22-30) mmol/L Anion Gap 12 mmol/L BUN 27 H (7-17) mg/dL Creatinine 1.14 H (0.52-1.04) mg/dL Est GFR (CKD-EPI)AfAm 54 (>60 ml/min/1.73 sqM) Est GFR (CKD-EPI)NonAf 46 (>60 ml/min/1.73 sqM) Glucose 104 H (74-99) mg/dL Calcium 9.2 (8.4-10.2) mg/dL Total Bilirubin 0.4 (0.2-1.3) mg/dL AST 60 H (14-36) U/L ALT 26 (4-34) U/L Alkaline Phosphatase 131 H (38-126) U/L Total Protein 5.7 L (6.3-8.2) g/dL Albumin 3.1 L (3.5-5.0) g/dL Urine Color Colorless Urine Appearance Cloudy H (Clear) Urine pH 5.5 (5.0-8.0) Ur Specific [place] 1.005 (1.001-1.035) Urine Protein 1+ H (Negative) Urine Glucose (UA) Negative (Negative) Urine Ketones Negative (Negative) Urine Blood Moderate H (Negative) Urine Nitrite Negative (Negative) Urine Bilirubin Negative (Negative) Urine Urobilinogen <2.0 (<2.0) mg/dL Ur Leukocyte Esterase Large H (Negative) Urine RBC 6 H (0-5) /hpf Urine WBC 181 H (0-5) /hpf Urine WBC Clumps Many H (None) /hpf Ur Squamous Epith Cells 2 (0-4) /hpf Urine Bacteria Moderate H (None) /hpf Urine Yeast (Budding) Moderate H (None) /hpf Disposition Clinical Impression: UTI (urinary tract infection) Disposition: ADMITTED IP TO THIS HOSP Condition: Stable
[2024-08-04] MEDS: ACETAMINOPHEN TAB 325 MG TAB PO PRN (19:35)
[2024-08-04] MEDS: CEFEPIME 2 GM in SODIUM CHLORIDE 0.9% 100 ML IVPB STA (19:35)
[2024-08-04] MEDS: traMADol 50 MG TAB PO PRN (19:35)
[2024-08-04 19:44] LABS: Basophils % (A) 0 %; Eosinophils # (A) 0.2 k/uL (0-0.7); Eosinophils % (A) 1 %; HCT 36.7 % (34.0-46.0); HGB 12.4 gm/dL (11.4-16.0); Lymphocytes # (A) 0.9 k/uL (1.0-4.8); Lymphocytes % (A) 4 %; MCH 30.1 pg (25.0-35.0); MCHC 33.9 g/dL (31.0-37.0); MCV 88.9 fL (80.0-100.0); Mean Platelet Volume 6.9; Monocytes # (A) 0.5 k/uL (0-1.0); Monocytes % (A) 3 %; Neutrophils # (A) 19.3 k/uL (1.3-7.7); Neutrophils % (A) 92 %; Platelet Count 350 k/uL (150-450); RBC 4.13 m/uL (3.80-5.40); RDW 12.5 % (11.5-15.5)
[2024-08-04 19:58] LABS: Appearance,Urine Cloudy (Clear); Bacteria,Urine Moderate /hpf; Bilirubin,Urine Negative (Negative); Blood,Urine Moderate (Negative); Budding Yeast,Urine Moderate /hpf; Color,Urine Colorless; Glucose,Urine (UA) Negative (Negative); Ketones,Urine Negative (Negative); Leukocyte Esterase,Urine Large (Negative); Nitrite,Urine Negative (Negative); PH, Urine 5.5 (5.0-8.0); Protein,Urine 1+ (Negative); RBC,Urine 6 /hpf (0-5); Specific Gravity,Urine 1.005 (1.001-1.035); Squamous Epithelial Cell,Urine 2 /hpf (0-4); Urobilinogen,Urine <2.0 mg/dL (<2.0); WBC,Urine 181 /hpf (0-5)
[2024-08-04 20:02] LABS: ALT 26 U/L (4-34); AST 60 U/L (14-36); African American GFR (CKD) 54 (>60 ml/min/1.73 sqM); Albumin 3.1 g/dL (3.5-5.0); Alkaline Phosphatase 131 U/L (38-126); Anion Gap 12 mmol/L; Blood Urea Nitrogen 27 mg/dL (7-17); Calcium 9.2 mg/dL (8.4-10.2); Carbon Dioxide 18 mmol/L (22-30); Chloride 107 mmol/L (98-107); Glucose 104 mg/dL (74-99); Non-African American GFR(CKD) 46 (>60 ml/min/1.73 sqM); Sodium 137 mmol/L (137-145); Total Bilirubin 0.4 mg/dL (0.2-1.3); Total Protein 5.7 g/dL (6.3-8.2)
[2024-08-04] MEDS ORDERED: IBUPROFEN 400 MG TAB PO PRN (20:29)
[2024-08-04] MEDS ORDERED: CALCIUM CARBONATE 500 MG CHEWABLE PO PRN (20:29)
[2024-08-04] MEDS ORDERED: MAG HYDROX/AL HYDROX/SIMETH 30 ML CUP PO PRN (20:29)
[2024-08-04] MEDS ORDERED: ONDANSETRON 4 MG/2 ML VIAL IVP PRN (20:29)
[2024-08-04] MEDS ORDERED: NALOXONE 0.4 MG/ML 1 ML VIAL IV PRN (20:29)
[2024-08-04] MEDS ORDERED: ACETAMINOPHEN TAB 325 MG TAB PO PRN (20:31)
[2024-08-04] MEDS: FAMOTIDINE 20 MG TAB PO SCH (21:00)
[2024-08-04] MEDS: SODIUM CHLORIDE 0.9% 1,000 ML IV SCH (21:00)
[2024-08-05] MEDS: ENOXAPARIN 40 MG/0.4 ML SYRINGE SQ SCH (08:43)
[2024-08-05] MEDS: VIT A,C & E-LUTEIN-MINERALS 1 EACH TAB PO SCH (10:41)
[2024-08-05] MEDS: amLODIPine 5 MG TAB PO SCH (10:41)
[2024-08-05] MEDS: FENOFIBRATE 160 MG TAB PO SCH (10:42)
[2024-08-05] MEDS: lisinopriL 5 MG TAB PO SCH (10:42)
[2024-08-05] MEDS: LORATADINE 10 MG TAB PO SCH (10:42)
[2024-08-05] MEDS: SODIUM BICARBONATE TAB 650 MG TAB PO SCH (10:42)
--- NOTE | 2024-08-05 15:02 | P.HPIM ---
History of Present Illness H&P Date: 08/05/24 Chief Complaint: Confusion Pleasant 78-year-old patient who follows with Dr. Kamron Lee. Chronic medical conditions include primary osteoarthritis, hyperlipidemia, essential hypertension. Patient presented to the ER. Patient had called her sister yesterday morning and her sister found her to be rather confused. Rather typical when she gets UTIs. In the ER temperature on arrival 102.7. After getting some IV fluids and antibiotics she started to turn around. Patient stated that she was really feeling weak yesterday. Normally at home she holds onto things to get about. Outside she does use a cane. This morning she is actually feeling better. Will eat some. Review of systems: GEN.: Tired, decreased appetite yesterday EYES: None HEENT: None NECK: None RESPIRATORY: None CARDIOVASCULAR: None GASTROINTESTINAL: As above GENITOURINARY: Chronic urinary frequency MUSCULOSKELETAL: None LYMPHATICS: None HEMATOLOGICAL: None PSYCHIATRY: Bit forgetful NEUROLOGICAL: None Social history: Does not smoke. Alcohol occasional. Lives alone. Uses a cane outside the house Physical examination: VITAL SIGNS: 100.6, 84, 16, 115 x 74, 100% room air GENERAL: BMI 18.9, resting bed awake EYES: Pupils equal. Conjunctiva normal. HEENT: External appearance of nose and ears normal, oral cavity dry mucous membranes NECK: JVD not raised; masses not palpable. HEART: First and second heart sounds are normal; no edema. LUNGS: Respiratory rate normal; clear to auscultation. ABDOMEN: Soft, no tenderness, no guarding rigidity, liver spleen not palpable, no masses palpable. PSYCH: Able x 3, mood affect normal MUSCULAR skeletal: Evidence of OA. NEUROLOGICAL: Cranial nerves grossly intact; no facial asymmetry, power and sensation grossly intact. Investigations: August 04: White count 21 hemoglobin 12.4 platelets 350 sodium 137 potassium 4 BUN 27 creatinine 1.14 bicarb 18 UA: Positive for blood, leukoesterase, WBC 181 E. moderate Assessment and plan: -Acute UTI with cystitis causing acute delirium IV cefepime IV fluids -Chronic gait dysfunction. At home holds onto things to get about. Outside uses a cane -Primary osteoarthritis multiple joints bilateral Pain medications as needed -Hyperlipidemia Diet-controlled -Acute UTI with cystitis Keflex. Completed course -Essential hypertension Lisinopril hydrochlorothiazide 20/12.5 one tablet daily at bedtime -Chronic metabolic acidosis Oral sodium bicarbonate -Full code Discussed with patient. Given the complexity and severity of patient's condition expect the patient to be in the hospital at least for 2 overnights. Given patient's confusion weakness delirium on presentation from UTI patient needed inpatient stay. Past Medical History Past Medical History: Cancer, Hypertension Additional Past Medical History / Comment(s): Right breast lump- non cancerous, Sepsis 03/2019. left leg infection History of Any Multi-Drug Resistant Organisms: None Reported Past Surgical History: Breast Surgery, Cholecystectomy, Hysterectomy, Tonsillectomy Additional Past Surgical History / Comment(s): right lumpectomy Past Anesthesia/Blood Transfusion Reactions: No Reported Reaction Past Psychological History: Depression Smoking Status: Never smoker Past Alcohol Use History: None Reported Past Drug Use History: None Reported - Past Family History Mother Family Medical History: Myocardial Infarction ([place]) Brother(s) Family Medical History: Cancer Additional Family Medical History / Comment(s): Lung Cancer- at age 47 Medications and Allergies Home Medications Medication Instructions Recorded Confirmed Type Loratadine [Claritin] 10 mg PO DAILY 03/12/23 08/05/24 History Vit C/E/Zn/Coppr/Lutein/Zeaxan 1 cap PO BID 03/12/23 08/05/24 History [Preservision Areds 2 Softgel] Acetaminophen Tab [Tylenol Tab] 500 mg PO Q6H PRN 08/05/24 08/05/24 History Cholecalciferol (Vitamin D3) 50 mcg PO DAILY 08/05/24 08/05/24 History [Vitamin D3 (50 Mcg = 2000 Iu)] Clobetasol Propionate [Temovate 1 applic TOPICAL MOTH 08/05/24 08/05/24 History 0.05% Oint] Sodium Bicarbonate Tab 650 mg PO BID 08/05/24 08/05/24 History amLODIPine [Norvasc] 5 mg PO DAILY 08/05/24 08/05/24 History gemfibroziL [Lopid] 600 mg PO BID 08/05/24 08/05/24 History lisinopriL [Zestril] 5 mg PO DAILY 08/05/24 08/05/24 History Allergies Allergy/AdvReac Type Severity Reaction Status Date / Time adhesive tape Allergy Rash/Hives Verified 08/05/24 10:01 sulfamethoxazole Allergy Rash/Hives Verified 08/05/24 10:01 [From Bactrim] trimethoprim [From Bactrim] Allergy Rash/Hives Verified 08/05/24 10:01 aspirin AdvReac Nausea & Verified 08/05/24 10:01 Vomiting & Diarrhea doxycycline AdvReac Nausea & Verified 08/05/24 10:01 Vomiting & Diarrhea nitrofurantoin AdvReac Leg Verified 08/05/24 10:01 [From Macrobid] swelling GLADYS MUSTARD Allergy Anaphylaxis Uncoded 08/05/24 10:01 Physical Exam Vitals: Vital Signs Temp Pulse Pulse Resp BP BP Pulse Ox 08/05/24 08:44 80 15 08/05/24 07:16 98.6 F 80 15 117/65 92 L 08/05/24 01:05 98.9 F 77 16 137/83 97 08/04/24 22:16 98.4 F 79 18 98/60 96 08/04/24 21:18 84 16 125/83 96 08/04/24 20:55 83 18 125/83 98 08/04/24 20:31 99 F 08/04/24 18:49 100.6 F H 84 16 115/74 100 Intake and Output 08/04/24 08/05/24 08/05/24 22:59 06:59 14:59 Intake Total 1080 Output Total 1200 Balance -120 Intake: Oral 1080 Output: Urine 1200 Other: Voiding Method Indwelling Catheter Indwelling Catheter Weight 49.895 kg Results CBC & Chem 7: 08/04/24 19:30 08/04/24 19:30 Labs: Abnormal Lab Results - Last 24 Hours (Table) 08/04/24 08/04/24 08/04/24 Range/Units 19:30 19:30 19:30 WBC 21.0 H (3.8-10.6) k/uL Neutrophils # 19.3 H (1.3-7.7) k/uL Lymphocytes # 0.9 L (1.0-4.8) k/uL Carbon Dioxide 18 L (22-30) mmol/L BUN 27 H (7-17) mg/dL Creatinine 1.14 H (0.52-1.04) mg/dL Glucose 104 H (74-99) mg/dL AST 60 H (14-36) U/L Alkaline Phosphatase 131 H (38-126) U/L Total Protein 5.7 L (6.3-8.2) g/dL Albumin 3.1 L (3.5-5.0) g/dL Urine Appearance Cloudy H (Clear) Urine Protein 1+ H (Negative) Urine Blood Moderate H (Negative) Ur Leukocyte Esterase Large H (Negative) Urine RBC 6 H (0-5) /hpf Urine WBC 181 H (0-5) /hpf Urine WBC Clumps Many H (None) /hpf Urine Bacteria Moderate H (None) /hpf Urine Yeast (Budding) Moderate H (None) /hpf Thrombosis Risk Factor Assmnt - Choose All That Apply Other Risk Factors: Yes Each Risk Factor Represents 3 Points: Age 75 years or older Thrombosis Risk Factor Assessment Total Risk Factor Score: 3 Thrombosis Risk Factor Assessment Level: Moderate Risk
[2024-08-05] MEDS: CEFEPIME 1 GM in SODIUM CHLORIDE 0.9% 50 ML IVPB SCH (15:40)
[2024-08-05 16:30] VITALS: BMI 18.8
[2024-08-05] MEDS ORDERED: LISINOPRIL-HCTZ 20-12.5 MG 1 EACH TAB PO SCH (21:00)
[2024-08-05] MEDS: LACTATED RINGERS 1,000 ML IV SCH (21:35)
[2024-08-06] MEDS: FAMOTIDINE 20 MG TAB PO SCH (08:29)
--- NOTE | 2024-08-06 17:36 | P.PN ---
Progress Note - Text Progress Note Date: 08/06/24 Chief Complaint: Confusion Pleasant 78-year-old patient who follows with Dr. Kamron Lee. Chronic medical conditions include primary osteoarthritis, hyperlipidemia, essential hypertension. Patient presented to the ER. Patient had called her sister yesterday morning an d her sister found her to be rather confused. Rather typical when she gets UTIs. In the ER temperature on arrival 102.7. After getting some IV fluids and antibiotics she started to turn around. Patient stated that she was really feeling weak yesterday. Normally at home she holds onto things to get about. Outside she does use a cane. This morning she is actually feeling better. Will eat some. August 06: Patient feeling much better. On IV cefepime. Eating better. Requesting to be discharged tomorrow morning. Did ambulate to the bathroom. Cut back IV fluids. Active Medications Acetaminophen (Acetaminophen Tab 325 Mg Tab) 650 mg PO Q6HR PRN PRN Reason: Fever and/or Mild Pain Al Hydroxide/Mg Hydroxide (Mag Hydrox/Al Hydrox/Simeth 30 Ml Cup) 15 ml PO Q6HR PRN PRN Reason: Indigestion Amlodipine Besylate (Amlodipine 5 Mg Tab) 5 mg PO DAILY [facility] Last Admin: 08/06/24 08:29 Dose: 5 mg Calcium Carbonate/Glycine (Calcium Carbonate 500 Mg Chewable) 1,000 mg PO Q4HR PRN PRN Reason: Dyspepsia Enoxaparin Sodium (Enoxaparin 40 Mg/0.4 Ml Syringe) 40 mg SQ DAILY [facility] Last Admin: 08/06/24 08:29 Dose: 40 mg Famotidine (Famotidine 20 Mg Tab) 20 mg PO DAILY [facility] Last Admin: 08/06/24 08:29 Dose: 20 mg Fenofibrate (Fenofibrate 160 Mg Tab) 160 mg PO DAILY [facility] Last Admin: 08/06/24 08:29 Dose: 160 mg Lactated Ringer's (Lactated Ringers) 1,000 mls @ 50 mls/hr IV .Q20H [facility] Last Admin: 08/06/24 08:30 Dose: 50 mls/hr Cefepime HCl 1 gm/ Sodium (Chloride) 50 mls @ 12.5 mls/hr IVPB Q12HR [facility]; Protocol Last Admin: 08/06/24 08:29 Dose: 12.5 mls/hr Ibuprofen (Ibuprofen 400 Mg Tab) 400 mg PO Q6HR PRN PRN Reason: Mild Pain or Fever > 100.5 Lisinopril (Lisinopril 5 Mg Tab) 5 mg PO DAILY [facility] Last Admin: 08/06/24 08:29 Dose: 5 mg Loratadine (Loratadine 10 Mg Tab) 10 mg PO DAILY [facility] Last Admin: 08/06/24 08:29 Dose: 10 mg Multivitamins/Minerals (Vit A,C & B-Qzxtif-Gdjuuhea 1 Each Tab) 1 each PO BID [facility] Last Admin: 08/06/24 08:29 Dose: 1 each Naloxone HCl (Naloxone 0.4 Mg/Ml 1 Ml Vial) 0.2 mg IV Q2M PRN PRN Reason: Opioid Reversal Ondansetron HCl (Ondansetron 4 Mg/2 Ml Vial) 4 mg IVP Q8HR PRN PRN Reason: Nausea And Vomiting Sodium Bicarbonate (Sodium Bicarbonate Tab 650 Mg Tab) 650 mg PO BID [facility] Last Admin: 08/06/24 08:29 Dose: 650 mg Tramadol HCl (Tramadol 50 Mg Tab) 50 mg PO Q6H PRN PRN Reason: Pain Last Admin: 08/06/24 15:04 Dose: 50 mg Social history: Does not smoke. Alcohol occasional. Lives alone. Uses a cane outside the house Physical examination: VITAL SIGNS: 97.9, 59, 15, 105 x 66, 96% room air GENERAL: BMI 18.9, up in a chair, comfortable EYES: Pupils equal. Conjunctiva normal. HEENT: External appearance of nose and ears normal, oral cavity dry mucous membranes NECK: JVD not raised; masses not palpable. HEART: First and second heart sounds are normal; no edema. LUNGS: Respiratory rate normal; clear to auscultation. ABDOMEN: Soft, no tenderness, no guarding rigidity, liver spleen not palpable, no masses palpable. PSYCH: Able x 3, mood affect normal MUSCULAR skeletal: Evidence of OA. Investigations: Urine culture: Negative August 04: White count 21 hemoglobin 12.4 platelets 350 sodium 137 potassium 4 BUN 27 creatinine 1.14 bicarb 18 UA: Positive for blood, leukoesterase, WBC 181 E. moderate Assessment and plan: -Acute UTI with cystitis causing acute delirium: Much better IV cefepime IV fluids -Acute delirium from UTI. Much improved -Chronic gait dysfunction. At home holds onto things to get about. Outside uses a cane -Primary osteoarthritis multiple joints bilateral Pain medications as needed -Hyperlipidemia Diet-controlled -Essential hypertension Lisinopril hydrochlorothiazide 20/12.5 one tablet daily at bedtime -Chronic metabolic acidosis Oral sodium bicarbonate -Full code Patient doing much better. Discussed. Repeat labs in the morning. Past Medical History Past Medical History: Cancer, Hypertension Additional Past Medical History / Comment(s): Right breast lump- non cancerous, Sepsis 03/2019. left leg infection History of Any Multi-Drug Resistant Organisms: None Reported Past Surgical History: Breast Surgery, Cholecystectomy, Hysterectomy, Tonsillectomy Additional Past Surgical History / Comment(s): right lumpectomy Past Anesthesia/Blood Transfusion Reactions: No Reported Reaction Past Psychological History: Depression Smoking Status: Never smoker Past Alcohol Use History: None Reported Past Drug Use History: None Reported
[2024-08-06 20:05] VITALS: RESP 18
[2024-08-07 05:12] LABS: Basophils % (A) 0 %; Eosinophils # (A) 0.2 k/uL (0-0.7); Eosinophils % (A) 2 %; HCT 35.3 % (34.0-46.0); Lymphocytes # (A) 1.1 k/uL (1.0-4.8); Lymphocytes % (A) 13 %; MCH 30.4 pg (25.0-35.0); MCHC 33.9 g/dL (31.0-37.0); MCV 89.8 fL (80.0-100.0); Mean Platelet Volume 7.5; Monocytes # (A) 0.5 k/uL (0-1.0); Monocytes % (A) 6 %; Neutrophils # (A) 6.7 k/uL (1.3-7.7); Neutrophils % (A) 78 %; Platelet Count 315 k/uL (150-450); RBC 3.93 m/uL (3.80-5.40); RDW 12.7 % (11.5-15.5); WBC 8.7 k/uL (3.8-10.6)
[2024-08-07 05:34] LABS: African American GFR (CKD) 60 (>60 ml/min/1.73 sqM); Anion Gap 6 mmol/L; Blood Urea Nitrogen 23 mg/dL (7-17); Calcium 9.7 mg/dL (8.4-10.2); Carbon Dioxide 24 mmol/L (22-30); Chloride 102 mmol/L (98-107); Glucose 95 mg/dL (74-99); Non-African American GFR(CKD) 52 (>60 ml/min/1.73 sqM); Potassium 4.2 mmol/L (3.5-5.1); Sodium 132 mmol/L (137-145)
[2024-08-07 08:15] VITALS: BP 102/63; PULSE 66; TEMP 97.3
--- NOTE | 2024-08-07 13:32 | P.DS ---
Providers Date of admission: 08/05/24 15:01 Expected date of discharge: 08/07/24 Attending physician: Vlad Suggs Primary care physician: Kamron Lee [facility] Course: Chief Complaint: Confusion Pleasant 78-year-old patient who follows with Dr. Kamron Lee. Chronic medical conditions include primary osteoarthritis, hyperlipidemia, essential hypertension. Patient presented to the ER. Patient had called her sister yesterday morning and her sister found her to be rather confused. Rather typical when she gets UTIs. In the ER temperature on arrival 102.7. After getting some IV fluids and antibiotics she started to turn around. Patient stated that she was really feeling weak yesterday. Normally at home she holds onto things to get about. Outside she does use a cane. This morning she is actually feeling better. Will eat some. August 06: Patient feeling much better. On IV cefepime. Eating better. Requesting to be discharged tomorrow morning. Did ambulate to the bathroom. Cut back IV fluids. August 07. Patient feeling well. Eating well. Did ambulate. Will DC with 3 more days of Ceftin. Questions answered. Social history: Does not smoke. Alcohol occasional. Lives alone. Uses a cane outside the house Physical examination: VITAL SIGNS: 97.3, 66, 18, 102 x 73, 96% room air GENERAL: BMI 18.9, comfort Jodi EYES: Pupils equal. Conjunctiva normal. HEENT: External appearance of nose and ears normal, oral cavity dry mucous membranes NECK: JVD not raised; masses not palpable. HEART: First and second heart sounds are normal; no edema. LUNGS: Respiratory rate normal; clear to auscultation. ABDOMEN: Soft, no tenderness, no guarding rigidity, liver spleen not palpable, no masses palpable. PSYCH: Able x 3, mood affect normal MUSCULAR skeletal: Evidence of OA. Investigations: August 07: White count 8.7 globin 12 potassium 4.2 creatinine 1.04 Urine culture: Negative August 04: White count 21 hemoglobin 12.4 platelets 350 sodium 137 potassium 4 BUN 27 creatinine 1.14 bicarb 18 UA: Positive for blood, leukoesterase, WBC 181 E. moderate Assessment and plan: -Acute UTI with cystitis causing acute delirium: Improved IV cefepime IV fluids Discharged on Ceftin to 50 mg twice daily for 3 days -Acute delirium from UTI. Much improved -Chronic gait dysfunction. At home holds onto things to get about. Outside uses a cane -Primary osteoarthritis multiple joints bilateral Pain medications as needed -Hyperlipidemia Diet-controlled -Essential hypertension Amlodipine. Will DC lisinopril. As blood pressure on the softer side -Chronic metabolic acidosis Oral sodium bicarbonate -Full code Patient: Home Past Medical History Past Medical History: Cancer, Hypertension Additional Past Medical History / Comment(s): Right breast lump- non cancerous, Sepsis 03/2019. left leg infection History of Any Multi-Drug Resistant Organisms: None Reported Past Surgical History: Breast Surgery, Cholecystectomy, Hysterectomy, Tonsillectomy Additional Past Surgical History / Comment(s): right lumpectomy Past Anesthesia/Blood Transfusion Reactions: No Reported Reaction Past Psychological History: Depression Smoking Status: Never smoker Past Alcohol Use History: None Reported Past Drug Use History: None Reported Plan - Discharge Summary Discharge Rx Participant: No New Discharge Prescriptions: New Cefuroxime [Ceftin] 250 mg PO BID 3 Days #6 tab Continue Vit C/E/Zn/Coppr/Lutein/Zeaxan [Preservision Areds 2 Softgel] 1 cap PO BID Clobetasol Propionate [Temovate 0.05% Oint] 1 applic TOPICAL MOTH gemfibroziL [Lopid] 600 mg PO BID Loratadine [Claritin] 10 mg PO DAILY Acetaminophen Tab [Tylenol] 500 mg PO Q6H PRN PRN Reason: Fever And/ Or Pain lisinopriL [Zestril] 5 mg PO DAILY amLODIPine [Norvasc] 5 mg PO DAILY Sodium Bicarbonate Tab 650 mg PO BID Cholecalciferol (Vitamin D3) [Vitamin D3 (50 Mcg = 2000 Iu)] 50 mcg PO DAILY Discharge Medication List Loratadine [Claritin] 10 mg PO DAILY 03/12/23 [History] Vit C/E/Zn/Coppr/Lutein/Zeaxan [Preservision Areds 2 Softgel] 1 cap PO BID 03/12/23 [History] Acetaminophen Tab [Tylenol] 500 mg PO Q6H PRN 08/05/24 [History] Cholecalciferol (Vitamin D3) [Vitamin D3 (50 Mcg = 2000 Iu)] 50 mcg PO DAILY 08/05/24 [History] Clobetasol Propionate [Temovate 0.05% Oint] 1 applic TOPICAL MOTH 08/05/24 [History] Sodium Bicarbonate Tab 650 mg PO BID 08/05/24 [History] amLODIPine [Norvasc] 5 mg PO DAILY 08/05/24 [History] gemfibroziL [Lopid] 600 mg PO BID 08/05/24 [History] lisinopriL [Zestril] 5 mg PO DAILY 08/05/24 [History] Cefuroxime [Ceftin] 250 mg PO BID 3 Days #6 tab 08/07/24 [Rx] Follow up Appointment(s)/Referral(s): Kamron Lee MD [Primary Care Provider] - 08/12/24 2:30 pm Patient Instructions/Handouts: Urinary Tract Infection in Women (DC)
== END 2024-08-07 13:55 | disposition home or self-care (01) ==
LOC: EC 18:40 → 4SSUR 20:29 → OBSVTOIN 08-05 15:01 → INTOOBSV 08-05 15:01 → UNDODISIN 08-07 13:55
PROVIDERS: ADMIT Hospitalist; ATTEND Hospitalist
DX: N30.00 Acute cystitis without hematuria (principal); E87.22 Chronic metabolic acidosis; I10 Essential (primary) hypertension; F32.A Depression, unspecified; E78.5 Hyperlipidemia, unspecified; M15.9 Polyosteoarthritis, unspecified; R26.89 Other abnormalities of gait and mobility; Z87.440 Personal history of urinary (tract) infections; Z79.899 Other long term (current) drug therapy; Z88.1 Allergy status to other antibiotic agents; Z88.2 Allergy status to sulfonamides; Z88.6 Allergy status to analgesic agent
CPT/HCPCS: 96366 ×3; 96372 ×3; 96365; 99285; 36415; 80053; 80048; 85025 ×2; 81001; 87086; G0378 ×5; J0692 ×4; J1650 ×3

== ENCOUNTER → 2025-02-10 | Outpatient (CLI) | payer MEDICARE ==
[2025-02-10 15:14] LABS: African American GFR (CKD) 46 (>60 ml/min/1.73 sqM); Blood Urea Nitrogen 38 mg/dL (7-17); Non-African American GFR(CKD) 40 (>60 ml/min/1.73 sqM)
--- NOTE | 2025-02-10 16:44 | CT ---
EXAMINATION TYPE: CT abdomen wo/w con CT DLP: 813 mGycm, Automated exposure control for dose reduction was used. DATE OF EXAM: 02/10/2025 4:29 PM COMPARISON: CT abdomen pelvis 03/12/2023 CLINICAL INDICATION:Female, 79 years old with history of N13.30 UNSPECIFIED HYDRONEPHROSIS; Hydroneph rosis TECHNIQUE: Standard CT of the abdomen before and after the uneventful administration of 100 cc of I sovue-300 intravenously. Oral contrast was administered. Coronal and sagittal reformats were performe d. FINDINGS: LOWER CHEST: Unremarkable ABDOMEN LIVER: Unremarkable GALLBLADDER AND BILE DUCTS: Gallbladder is surgically absent with mild intrahepatic and extra hepatic biliary dilatation likely physiologic and a postcholecystectomy change. No evidence of choledocholit hiasis. PANCREAS: Unremarkable. SPLEEN: Unremarkable. ADRENAL GLANDS: Unremarkable. KIDNEYS AND URETERS: No renal calculi. Similar mild bilateral hydroureteronephrosis without visualize d obstructing calculus. The kidneys enhance symmetrically. There is some contrast identified within b oth collecting systems on the delayed phase. No suspicious ureteral lesion within the visualized prox imal to mid ureters. Lobulated appearance of both kidneys. STOMACH AND BOWEL: Stomach appears unremarkable. Periampullary duodenal diverticulum.No focal bowel w all thickening or stranding inflammatory changes. Enteric contrast reaches the mid to distal small ngoc wel. No evidence of bowel obstruction. PERITONEUM: No evidence of pneumoperitoneum or free fluid. VASCULATURE: Mild atherosclerotic calcifications are present throughout the abdominal aorta and its b ranches. No evidence of aortic aneurysm. MUSCULOSKELETAL: No acute osseous abnormalities. S-shaped sclerotic curvature of the lumbar spine. Mu ltilevel degenerative disc disease of the lumbar spine. LYMPH NODES: No evidence for lymphadenopathy. SOFT TISSUE/ABDOMINAL WALL: Unremarkable IMPRESSION: Mild bilateral hydroureteronephrosis without obstructing calculus within the visualized upper to mid ureters. No distinct lesion identified. No renal calculi. Consider further evaluation with CT urogram as clinically indicated. [facility], , 02/10/2025 4:42 PM
== END | disposition home or self-care (01) ==
LOC: RADCTMAIN 14:13
PROVIDERS: ATTEND Urology
DX: N13.30 Unspecified hydronephrosis (principal)
CPT/HCPCS: 82565; 84520; 74170; 36415; Q9967